=== PATIENT | male | born 1970 | race Caucasian/White ===

== ENCOUNTER 2021-02-21 22:07 | Emergency (ER) | payer SELFPAY ==
[2021-02-21 22:08] VITALS: BP 109/92; PULSE 117; RESP 18; TEMP 36.4; O2SAT 100; BMI 16.1
--- NOTE | 2021-02-21 22:22 | EDS_ITS ---
HPI <Dr. Aldo Henderson MD - Last Filed: 02/23/21 00:35> History of Present Illness Chief Complaint: General Illness Informant: patient Narrative Narrative: Patient presents with an episode of his stomach churning at home. He states it moved in and out. He also describes it as a convulsion. However this did cause no pain or discomfort. There is no nausea vomiting or diarrhea. Patient states he thinks it is because he has not eaten in a few days. He did eat over the weekend and had some apples. He lives at home with his mother. He normally does not go out or go anywhere. He does not know why he does not go out he just does not do it. His mother is in the hospital here. He states he has no way to get food at home. He denies fevers or chills. He denies anything making this better or worse. It is currently not occurring. He denies any past medical history. He does have a history of GI bleed related to nonsteroidals but states he is not taking any meds now and has not had black or bloody stools. No medications No allergies Denies prior surgeries Lives at home with mother, denies smoking. PFSH <Dr. Aldo Henderson MD - Last Filed: 02/23/21 00:35> [facility] Medical History GERD (gastroesophageal reflux disease) Home Medications NK 02/21/21 [History Last Taken Unknown] Allergy/AdvReac Type Severity Reaction Status Date / Time No Known Allergies Allergy Verified 02/22/21 12:24 Social History Smoking Status: Never smoker ROS <Dr. Aldo Henderson MD - Last Filed: 02/23/21 00:35> ROS ED Constitutional Constitutional ED: Denies chills or fever(s) Eyes Eyes: Denies blurry vision ENT ENT ED: Denies rhinorrhea or sore throat Cardiovascular Cardiovascular: Denies chest pain or palpitations Respiratory/Chest Respiratory/Chest: Denies cough, dyspnea or sputum Gastrointestinal Gastrointestinal: Reports other Details: See history of present illness. ; Denies abdominal pain, constipation, diarrhea, melena, nausea or vomiting Genitourinary Genitourinary ED: Denies dysuria or urinary frequency Musculoskeletal Musculoskeletal: Denies back pain or myalgias Integumentary Denies rash Neurologic Neurologic: Denies headache(s) Endocrine Endocrinology: Denies polydipsia or polyuria Allergic/Immunologic Allergic/Immunologic ED: Denies mouth swelling or urticaria EXAM <Dr. Aldo Henderson MD - Last Filed: 02/23/21 00:35> Physical Exam Const Vital Signs: 02/22/21 00:54 02/22/21 01:30 02/22/21 11:37 Pulse Rate 97 103 H Respiratory Rate 16 16 18 Blood Pressure 110/75 115/93 H Blood Pressure Mean 86 100 Pulse Ox 99 97 Oxygen Delivery Method Room Air Room Air Positive well nourished and well developed General Appearance ED: well developed and NAD HEENT Reports dry mucous membranes Negative for trauma or tenderness Mouth ED: Yes dry mucous membranes Mouth: dry mucous membranes Eyes Eyes Narrative: Patient's skin looks a little bit pale but his conjunctive a do not. General Eye ED: Negative for pale conjunctiva or scleral icterus Neck No no JVD Chest Wall inspection of chest normal Resp normal respiratory effort and clear to auscultation bilaterally Cardio regular rate, regular rhythm and no murmurs GI normal to inspection, nondistended, normoactive bowel sounds, non-tender, non- distended and no masses Auscultation: normoactive bowel sounds Palpation: soft Back/Spine no CVA tenderness General Back: CVA tenderness Neuro oriented x3 Neuro Narrative: Patient is oriented. He does seem to have somewhat poor insight. Sensorium / Orientation: alert Psych Psych Narrative: Mildly flat affect. But the patient is not agitated. He is not suicidal or homicidal. Skin no rashes or lesions noted <Dr. Ledy Garcia MD - Last Filed: 02/22/21 11:11> Physical Exam Const Vital Signs: 02/22/21 00:54 02/22/21 01:30 02/22/21 11:37 Pulse Rate 97 103 H Respiratory Rate 16 16 18 Blood Pressure 110/75 115/93 H Blood Pressure Mean 86 100 Pulse Ox 99 97 Oxygen Delivery Method Room Air Room Air MDM <Dr. Aldo Henderson MD - Last Filed: 02/23/21 00:35> MDM MDM Narrative Medical decision making narrative: Patient's blood work including CBC, electrolytes, liver function test and lipase are unremarkable. He ate full meal with sandwich and yogurt and to drink without any difficulty. He does feel better. This patient is awake alert appropriate. He is able to care for himself but does not know how to access money to get food. He has basically lived with his mother since high school and has not worked. He really does not go out. His mother is currently in the hospital. However, we have found that she plans to be discharged today to go home. Plan will be to hold the patient here. We will have social media marketing manager talk with him in the morning and make sure there is coordination that he can go home and get access to food. Lab Data Attestation: I reviewed the patient's lab results. Labs: Laboratory Results - last 24 hr 02/21/21 02/21/21 22:14 22:14 WBC 5.0 RBC 4.84 Hgb 15.9 Hct 45.7 MCV 94.4 H MCH 32.9 H MCHC 34.8 RDW Std Deviation 50.0 H RDW Coeff of Janet 14.3 Plt Count 160 MPV 9.2 Immature Gran % (Auto) 0.200 Neut % (Auto) 58.0 Lymph % (Auto) 19.2 [place] % (Auto) 22.2 H Eos % (Auto) 0.0 Baso % (Auto) 0.4 Absolute Neuts (auto) 2.9 Absolute Lymphs (auto) 0.96 Nucleated RBC % 0 Sodium 138 Potassium 3.7 Chloride 102 Carbon Dioxide 27.0 Anion Gap 9 BUN 13 Creatinine 1.27 Estim Creat Clear Calc 54.02 Est GFR (MDRD) Af Amer 77 Est GFR (MDRD) Non-Af 64 BUN/Creatinine Ratio 10.2 Glucose 106 Calcium 9.0 Total Bilirubin 0.80 AST 14 L ALT 17 Alkaline Phosphatase 52 Total Protein 7.3 Albumin 3.7 Globulin 3.6 Albumin/Globulin Ratio 1.0 Lipase 159 Radiography Diagnostic Testing: Clinical Impression(s) from Imaging Studies Acute Abdomen Series 02/21/21 22:50 IMPRESSION: No acute disease or bowel obstruction. Normal chest. Electronically Signed: Suleiman Mcdaniels MD at 23:10 EST Tel , Service support , <Dr. Ledy Garcia MD - Last Filed: 02/22/21 11:11> MDM Lab Data Labs: Laboratory Results - last 24 hr 02/21/21 02/21/21 22:14 22:14 WBC 5.0 RBC 4.84 Hgb 15.9 Hct 45.7 MCV 94.4 H MCH 32.9 H MCHC 34.8 RDW Std Deviation 50.0 H RDW Coeff of Janet 14.3 Plt Count 160 MPV 9.2 Immature Gran % (Auto) 0.200 Neut % (Auto) 58.0 Lymph % (Auto) 19.2 [place] % (Auto) 22.2 H Eos % (Auto) 0.0 Baso % (Auto) 0.4 Absolute Neuts (auto) 2.9 Absolute Lymphs (auto) 0.96 Nucleated RBC % 0 Sodium 138 Potassium 3.7 Chloride 102 Carbon Dioxide 27.0 Anion Gap 9 BUN 13 Creatinine 1.27 Estim Creat Clear Calc 54.02 Est GFR (MDRD) Af Amer 77 Est GFR (MDRD) Non-Af 64 BUN/Creatinine Ratio 10.2 Glucose 106 Calcium 9.0 Total Bilirubin 0.80 AST 14 L ALT 17 Alkaline Phosphatase 52 Total Protein 7.3 Albumin 3.7 Globulin 3.6 Albumin/Globulin Ratio 1.0 Lipase 159 Radiography Diagnostic Testing: Clinical Impression(s) from Imaging Studies Acute Abdomen Series 02/21/21 22:50 IMPRESSION: No acute disease or bowel obstruction. Normal chest. Electronically Signed: Suleiman Mcdaniels MD at 23:10 EST Tel , Service support , Treatment and Re-Evaluation Comments:: Patient signed out to me pending evaluation by social work. Social work did evaluate the patient. He does not meet any criteria for placement in either long term or a psychiatric unit. After speaking with mom she was made aware that the patient has actually been staying alone for several months. Patient's mother is currently in long term and then was transferred to the hospital 4 days ago. She is being discharged today back to a long term. They do have Me[employer] Wheels that gets delivered 5 meals a week for the patient's mother. Mom is going to call to see if those services can be increased to the patient will have more food. The hospital van is able to take the patient home. I am told he does not qualify for Adult Protective Services or other assistance. Discharge Plan Triage Chief Complaint: General Illness ED Provider: Aldo Henderson Dx/Rx/DC Orders Clinical Impression: Abdominal cramping, Hungry Instructions: Abdominal Pain Prescriptions: No Action NK RF: 0 Primary Care Provider: Care Physician,No Primary Referrals: Jessica Banegas MD [STAFF PHYSICIAN] - 1-2 Weeks Care Physician,No Primary [Primary Care Provider] - Disposition Disposition: Home, Self Care Discharge Date/Time: 02/22/21 11:38
[2021-02-21] MEDS: 0.9% Normal Saline 1,000 ML 1000 ML IV (22:32)
[2021-02-21 22:43] LABS: Absolute Lymphocyte Count 0.96 X10^3/uL (0.83-4.51); Absolute Neutrophil Count 2.9 X10^3/uL (2.0-7.7); Basophil# 0.02 X10^3/uL; Basophil% 0.4 % (0-1); Hematocrit 45.7 % (40-54); Hemoglobin 15.9 g/dL (13.0-16.5); Lymphocyte # 0.96 X10^3/ul (0.83-4.51); Lymphocyte % 19.2 % (19-41); Mean Corp Hgb Conc 34.8 g/dL (32-36); Mean Corpuscular Hgb 32.9 pg (27.0-32.0); Mean Corpuscular Volume 94.4 fL (80-94); Mean Platelet Vol. 9.2 fl (6.2-12.0); Monocyte# 1.11 X10^3/uL; Monocyte% 22.2 % (0-10); NRBC Flagged by Analyzer 0 % (0-5); Platelet Count 160 K/mm3 (150-450); RBC Distribution Width CV 14.3 % (11.6-14.6); Red Blood Count 4.84 M/mm3 (4.6-6.2)
--- NOTE | 2021-02-21 22:50 | RAD_ITS ---
EXAM: XR ABDOMEN, 2 VIEWS AND XR CHEST, 1 VIEW CLINICAL INDICATION: Pain TECHNIQUE: Frontal view of the chest, frontal view of the abdomen/pelvis and upright or decubitus view of the abdomen. This report was created using [employer] report [employer] technology. COMPARISON: None. FINDINGS: CHEST: LUNGS AND PLEURAL SPACES: Suggestion of diffuse emphysema. No pneumothorax. No effusion. HEART: Unremarkable. Cardiac silhouette not enlarged. MEDIASTINUM: Central airways and mediastinal contour are unremarkable. ABDOMEN: INTRAPERITONEAL SPACE: No free air. GASTROINTESTINAL TRACT: Normal bowel gas pattern. Non-obstructive. No bowel or stomach distention. ORGANS: Unremarkable as visualized. No organomegaly. No abnormal calcifications. TUBES, LINES AND DEVICES: None. BONES/JOINTS: Unremarkable bones. SOFT TISSUES: No acute findings. OTHER FINDINGS: No suspicious calcification.s. Normal chest. RAD/Acute Abdomen Inc Chest IMPRESSION: No acute disease or bowel obstruction. Normal chest. Electronically Signed: Suleiman Mcdaniels MD at 23:10 EST Tel , Service support ,
[2021-02-21 22:59] LABS: AST(SGOT) 14 U/L (15-37); Alanine Aminotransfer ALT/SGPT 17 U/L (16-61); Albumin, Serum 3.7 g/dL (3.2-5.0); Alkaline Phosphatase 52 U/L (45-117); Anion Gap 9 (5-15); BUN 13 mg/dL (7-18); BUN/Creat Ratio 10.2 RATIO (10-20); Chloride 102 mmol/L (98-107); Creatinine, Serum 1.27 mg/dL (0.70-1.30); EST Glomerular Filtration Rate 64 mL/min (>60); Est Glom Filt Rate - Afr Amer 77 mL/min (>60); Estimated Creatinine Clearance 54.02 ml/min; Globulin 3.6 g/dL (2.2-4.2); Glucose 106 mg/dL (74-106); Lipase 159 U/L (73-393); Potassium 3.7 mmol/L (3.5-5.1); Protein, Total 7.3 g/dL (6.4-8.2); Sodium Level 138 mmol/L (136-145)
[2021-02-22 00:54] VITALS: BP 110/75; PULSE 97; RESP 16; O2SAT 99
[2021-02-22 01:30] VITALS: BP 115/93; PULSE 103; RESP 16; O2SAT 97
--- NOTE | 2021-02-22 10:51 | CM.ED ---
Social Work Consult: Resources Informant: Dr. Garcia Met with patient in room. Introduced self and manager social services role. Patient agreeable to speak with this manager social services. Patient came to ER due to stomach pains. Patient reports to live at home with patient mother, Jana Pineda and that Jana does all grocery shopping for patient. Patient reports that Jana is in a hospital and has not been home for more then 2-3 days for since 2020. Patient reports to be able to get self dress and take care of myself, I just can't get food. Patient denies any transportation and that Jana was patient main transportation. Patient denies any mental health or disability history. Patient does not work and does not have an income. Patient reports that Jana provides for patient financially. Patient understands that there is no reason for patient to be admitted to the hospital. Patient reports how am I going to get food, patient reports to have no food in the house. Patient is agreeable to this manager social services contacting Jana. Patient reports to have not spoken to Jana for awhile. Patient does report to have a phone at home. Telephone call to Jana Bates updated that patient is in ER. Jana updated that patient is cleared for discharge to the community but there is concern about patient having food in the home. Jana confirms that there probably isn't anything there. Jana reports to not be returning to home from hospital as Jana is going to a skilled nursing. Jana then asked if this manager social services would call [employer] to see if meals can be increased for Jana so that patient could have these meals. This manager social services informed Jana that this manager social services is not able to call [employer] for this request as Jana in fact is not going to be home. Jana frustrated with this. This manager social services offered to assist Jana in obtaining the number for [employer] to be able to call on own. Jana voiced understanding but currently declining this social workers assistance. Jana does report that there are 5 meals delivered every Sunday to patient's home. Jana also denies patient having any mental health or developmental delays/concerns with learning. Jana reports he took care of him self last time he can do it again. Met with patient back in room. Patient updated on above conversation and confirms to be still receiving [employer] meals but they are not enough. This manager social services noting that patient has [employer], Patient is agreeable to this manager social services contacting [employer] to inquire about possible case management. This manager social services attempting to ask patient further question. Patient then not wanting to talk further and agreeable with plan to discharge to community with this manager social services to contact food pantries for possible delivery options and [employer]. Patient does not have transportation. Telephone call to [facility] Francia mcclain. Transportation able to be set up for 11:30am. Patient and team updated on above. PLAN: Discharge to community. Cristino Lind, L
--- NOTE | 2021-02-22 11:35 | CM.ED ---
[facility] no longer active with insurance. This social media assistant collaborating with registration, patient does in fact NOT have insurance per medicaid/medicare. Patient no longer in ER, will follow up with patient later after speaking with food pantries. Will continue to follow. Cristino MARTINEZ, FLO
[2021-02-22 11:37] VITALS: RESP 18
== END 2021-02-22 11:38 | disposition home or self-care (01) ==
PROVIDERS: Emergency Provider Emergency Medicine; Visit Provider Emergency Medicine
DX: R10.9 Unspecified abdominal pain (principal)
CPT/HCPCS: 74022; 80053; 83690; 85025; 96360; 96361; 99284

== ENCOUNTER 2021-02-22 12:19 | Observation (INO) | payer MEDICARE, SELFPAY ==
[2021-02-22 12:22] VITALS: BP 128/96; PULSE 123; RESP 18; TEMP 35.8; O2SAT 99; BMI 19.8
--- NOTE | 2021-02-22 13:31 | CT_ITS ---
STUDY: CT BRAIN WITHOUT CONTRAST REASON FOR EXAM: Male, 50 years old. Head injury due to a fall. RADIATION DOSAGE (If Supplied By Facility): CTDIvol = ( 47.06 ) mGy, DLP = ( 890.33 ) mGycm TECHNIQUE: Transaxial CT imaging of the brain was performed without administration of intravenous contrast material. Individualized dose optimization techniques were used for this CT. COMPARISON: No relevant priors. FINDINGS: There is a small scalp hematoma overlying the right frontal bone. Normal calvarium. Normal size ventricles and extra-axial spaces for the patient''s age. Normal white matter tracts of the cerebral hemispheres. Normal basal ganglia and thalami. Normal brainstem. Normal cerebellum. There is prominence of the cisterna magna. This is a normal variant. There is no intracranial hemorrhage. There are no findings of an acute ischemic infarction. Normal visualized paranasal sinuses. CT/Brain/Head without Contrast IMPRESSION: Small scalp hematoma overlying the right frontal bone. Electronically Signed: Cedric Castro MD at 14:17 EST , Service support ,
--- NOTE | 2021-02-22 14:00 | EDS_ITS ---
HPI History of Present Illness Chief Complaint: Fall Informant: patient Onset/Context/Timing Onset: Today Narrative Narrative: Patient returns to the ER after a fall at home. Patient was seen in the emergency room last night for abdominal pain. Work-up unremarkable. Patient reportedly has difficulty caring for himself. His mother is currently in the hospital being discharged back to a residential. Patient has been alone at home for the past couple of months. He told the overnight doctor that he had only eaten a couple apples over the weekend because he has no food and no way to get food. Patient was seen by social work this morning. He does not meet any criteria for admission to the hospital, residential, or psychiatric facility. Patient was discharged home with a hospital van taking him there. Patient states that as he got out of the bed and was walking into the home his legs gave out on him and he fell. He denies slipping on the snow or ice. [facility] Medical History GERD (gastroesophageal reflux disease) Home Medications NK 02/21/21 [History Last Taken Unknown] Allergy/AdvReac Type Severity Reaction Status Date / Time No Known Allergies Allergy Verified 02/22/21 12:24 Social History Smoking Status: Never smoker ROS ROS ED Constitutional Constitutional ED: Denies chills or fever(s) Eyes Eyes: Denies blurry vision ENT ENT ED: Denies rhinorrhea Cardiovascular Cardiovascular: Denies chest pain or palpitations Respiratory/Chest Respiratory/Chest: Denies dyspnea Gastrointestinal Gastrointestinal: Reports abdominal pain; Denies diarrhea or vomiting Integumentary Reports Abrasions Endocrine Endocrinology: Denies polydipsia or polyuria Allergic/Immunologic Allergic/Immunologic ED: Denies urticaria EXAM Physical Exam Const Vital Signs: 02/22/21 12:22 02/22/21 12:54 Temperature 96.4 F L Temperature Source Temporal Pulse Rate 123 H Respiratory Rate 18 Respiratory Effort Normal Non-Labored Blood Pressure 128/96 H Blood Pressure Mean 106 Pulse Ox 99 Oxygen Delivery Method Room Air Positive cachectic and unkempt General Appearance ED: unkempt and cachectic Nutritional Appearance: cachectic HEENT HEENT Narrative: Abrasions to the right forehead and along the nose. No active bleeding. Eyes PERRL and EOMs intact bilaterally Neck supple Chest Wall inspection of chest normal and palpation of chest normal Resp normal respiratory effort and clear to auscultation bilaterally Cardio regular rhythm Rate: tachycardic Extremity Extremity Narrative: Small abrasion to the extensor surface of the right elbow. No bony tenderness with full range of motion. Neuro oriented x3 Neuro Narrative: No focal neurologic deficits. Sensorium / Orientation: alert Psych Appearance: unkempt MDM MDM MDM Narrative Medical decision making narrative: Patient's lab work from overnight is reviewed and unremarkable. Head CT obtained. Radiography Diagnostic Testing: Clinical Impression(s) from Imaging Studies Brain CT 02/22/21 13:31 IMPRESSION: Small scalp hematoma overlying the right frontal bone. Electronically Signed: Cedric Castro MD at 14:17 EST , Service support , Treatment and Re-Evaluation Comments:: Patient's head CT shows a small scalp hematoma over the right frontal bone. I will discuss case with hospitalist as patient has failure to thrive at home. We attempted to send him home earlier today and he fell even prior to getting into his house. I do have concerns for his safety. Social work has been involved in his care. Discharge Plan Triage Chief Complaint: Fall ED Provider: Ledy Garcia Dx/Rx/DC Orders Clinical Impression: Adult failure to thrive, Fall Prescriptions: No Action NK RF: 0 Primary Care Provider: Care Physician,No Primary Referrals: Care Physician,No Primary [Primary Care Provider] - Disposition Disposition: Acute Care Hospital [facility] [place]
--- NOTE | 2021-02-22 14:55 | NURSING ---
MED SURG OBS [facility] [place] 2] FAILURE TO THRIVE, WEAKNESS, FALL
--- NOTE | 2021-02-22 14:56 | NURSING ---
DR DUNAWAY IN ER
--- NOTE | 2021-02-22 15:20 | CM.ED ---
Social Work Patient back to ED after falling on snow and hitting head when getting into house. This manager social responsibility updated by Dr. Garcia that patient is to be admitted to failure to thrive. Patient does not have insurance as stated from last visit. Please see prior visit social work notes for further details. This manager social responsibility did not get a chance to see patient prior to patient going to medical unit. Medical unit manager social responsibility provided a handoff by this manager social responsibility. Cristino MARTINEZ, ANNALISA-S
[2021-02-22 15:39] VITALS: BP 131/79; PULSE 99; RESP 20; TEMP 36.2; O2SAT 99
--- NOTE | 2021-02-22 15:41 | PCM.HP.STD ---
HPI - General General Date of Admission: 02/22/21 Chief Complaint: Fall, failure to thrive and generalized weakness. HPI Narrative ESTELLA GONZALEZ, is a 50 M male brought in by squad today for a fall. Patient stated he fell down because his legs gave out on standing up because of weakness. He was standing on the ice therefore fell down and hit his forehead with his bruising over forehead and nose. No loss of consciousness. He denies sleeping because of ice but more because of weakness. Patient was recently evaluated ER on 02/21 for evaluation of malnourishment and was dropped to house and patient was trying to get to the door. The patient is not a good historian and is very tangential and comes back to subject again. Patient has decreased muscle mass in extremities. He complains of mild wheezing but not able to bring up any phlegm. He denies any chronic cough, fever, chills, chest pain/pressure/tightness. Earlier he was seen by ED physician on 02/21 for stomach pain which he felt like convulsion but he does not understand the meaning of convulsant and was not true convulsing/injury. He did not have history of epilepsy. I think it is more muscle pain. Patient has not eaten in the last few days. Did not have nausea vomiting or diarrhea. His mother is the main caregiver and she was in the hospital and discharged yesterday to snf. Labs from 02/21 reviewed. Lipase is normal. Acute abdomen series no acute disease or bowel obstruction. [facility] Medical History GERD (gastroesophageal reflux disease) Home Medications NK 02/21/21 [History Last Taken Unknown] Allergy/AdvReac Type Severity Reaction Status Date / Time No Known Allergies Allergy Verified 02/22/21 12:24 Social History Smoking Status: Never smoker ROS ROS Narrative Constitutional: Reports fatigue and weakness, generalized weakness. Fall. HEENT: Reports systems reviewed and no addt'l complaints, except as documented Respiratory/Chest: Denies chest pain, shortness of breath at rest or with exertion Gastrointestinal: Denies coffee ground emesis, hematemesis or vomiting. No abdominal pain today, diarrhea or constipation. Genitourinary: Denies burning urination or new urinary tract symptoms Musculoskeletal: Generalized loss of muscle bulk and loss of subcutaneous fat. Neurologic: Denies seizure-like activity skin: Abrasion/bruise over forehead and nose. Endocrinology: Reports systems reviewed and no addt'l complaints, except as documented Hematologic/Lymphatic: Reports systems reviewed and no addt'l complaints, except as documented Rest 14 ROS are negative except as mentioned in HPI Vital Signs Vital Signs Vital Signs: 02/22/21 12:22 02/22/21 12:54 02/22/21 15:39 Temperature 96.4 F L 97.1 F L Temperature Source Temporal Oral Pulse Rate 123 H 99 Respiratory Rate 18 20 H Respiratory Effort Normal Non-Labored Blood Pressure 128/96 H 131/79 H Blood Pressure Mean 106 96 Pulse Ox 99 99 Oxygen Delivery Method Room Air Room Air Weight Weight: 150 lb Body Mass Index (BMI) 19.8 Physical Exam Narrative General: Alert, Oriented x3, Cooperative. Severe malnutrition HEENT: Atraumatic, PERRLA, EOMI, Normocephalic Oral: Oral mucosa dry. No Gingival or Mucosal Lesions/ Ulcerations Neck: Supple, No JVD, Negative Carotid Bruits Lungs: Air entry diminished in bilateral lung bases. No crepitation/rhonchi Cardiovascular: Regular rate, Regular Rhythm, Normal S1, Normal S2, No murmurs Abdomen: Bowel Sounds Present, Soft, Non Tender, Non-Distended : No renal angle tenderness. No suprapubic tenderness. Extremities: No edema, Capillary Refill Less than 3 Seconds Skin: Abrasion/bruise over forehead. No deep wound wound/ulcer. Musculoskeletal: Decreased muscle mass over extremities. Loss of intervertebral intercostal muscles. Loss of subcutaneous fat. No Tenderness to Palpation of Joints or Extremities Neurological: Cranial nerves II-XII grossly intact, DTR 2+/4 and Symmetrical. Muscle strength 4/5 at the major joints of upper and lower extremities. Psych/Mental Status: Normal Affect, Appropriate. Results Radiology Impression Brain CT 02/22/21 13:31 IMPRESSION: Small scalp hematoma overlying the right frontal bone. Electronically Signed: Cedric Castro MD at 14:17 EST , Service support , Assessment & Plan Assessment/Plan (1) Adult failure to thrive: (2) Fall: QUALIFIERS: Encounter type: initial encounter Qualified Code(s): W19.XXXA - Unspecified fall, initial encounter PLAN: 1. Fall most likely from generalized weakness: Patient is being admitted on MedSur floor. IV fluid Ringer lactate. PT and OT ordered. 2. Failure to thrive, severe subacute malnutrition in the last several months: Allergist/Immunologist Physician consult. Regular diet. Nutritional supplement. 3. Recent abdominal cramping probably from muscle abdominal CT did not show any acute bleeding or bowel obstruction. Normal chest. 4. History of large gastric ulcer, acute blood loss anemia requiring transfusion February 2017: Patient was admitted at that time. EGD showed large gastric ulcer without evidence of active bleeding colonoscopy showed descending colon a small polyp that was removed.Labs shows H&H 15.9/45.7 which may be over concentration from dehydration. BUN 13. Creatinine 1.27. PPI. Full code verified. Charges/Coding Visit Charges OBSV E&M: 30592 Initial observation care L3
[2021-02-22 15:54] VITALS: PULSE 108; BMI 15.1
[2021-02-22 16:00] VITALS: BP 106/84; PULSE 108; RESP 16; TEMP 37.7; O2SAT 96
[2021-02-22] MEDS: Lactated Ringers 1,000 ML 100 ML IV (16:40)
[2021-02-22] MEDS: Pantoprazole Sodium 40 MG Tablet PO (16:48)
[2021-02-22] MEDS: Acetaminophen 325 MG Tablet 650 MG PO (20:38)
[2021-02-22 20:50] VITALS: BP 109/68; PULSE 103; RESP 18; TEMP 37.3; O2SAT 96
[2021-02-22 23:50] VITALS: BP 101/76; PULSE 89; RESP 16; TEMP 36.9; O2SAT 96
--- NOTE | 2021-02-22 23:52 | PCS.PANDOC ---
PANDEMIC DOCUMENTATION INITIATED: Date: 02/23/2021 Time: 0000
[2021-02-23 03:55] VITALS: BP 97/67; PULSE 72; RESP 20; TEMP 36.8; O2SAT 95
[2021-02-23] MEDS: Acetaminophen 325 MG Tablet 650 MG PO ×2 (03:58→20:30)
[2021-02-23 06:17] LABS: Anion Gap 4 (5-15); BUN 19 mg/dL (7-18); BUN/Creat Ratio 24.2 RATIO (10-20); Calcium,Total 8.1 mg/dL (8.5-10.1); Chloride 105 mmol/L (98-107); Creatinine, Serum 0.79 mg/dL (0.70-1.30); EST Glomerular Filtration Rate 110 mL/min (>60); Est Glom Filt Rate - Afr Amer 134 mL/min (>60); Estimated Creatinine Clearance 81.68 ml/min; Glucose 90 mg/dL (74-106); Potassium 3.6 mmol/L (3.5-5.1); Sodium Level 139 mmol/L (136-145); Thyroid Stim Hormone (TSH) 0.48 uIU/mL (0.358-3.74)
[2021-02-23 08:41] VITALS: O2SAT 95
[2021-02-23 08:45] VITALS: BP 116/56; PULSE 60; RESP 18; TEMP 36.4; O2SAT 94
[2021-02-23] MEDS: Pantoprazole Sodium 40 MG Tablet PO (08:45)
[2021-02-23] MEDS: Menthol/Lanolin/Calamine/Znox 113 GM Tube 1 APPLIC TOPICAL ×2 (09:23→20:31)
--- NOTE | 2021-02-23 11:55 | CASEMGMT ---
SYDNEY LEACH Assessment: Face to Face with pt for initial transition planning/care coordination assessment. SYDNEY LEACH introduced self and role at [facility], pt voices understanding and consents to assessment. Pt is A/O x4 and answers all questions appropriately at this time. Pt lying in bed on RA in no distress. Pt very angry when discussing [facility] with SYDNEY LEACH and was using profanity. Care providers, pharmacy, and demographics verified/updated. Phone number listed is patient's mother's. Pt does not have a phone. Admitting Dx: generalized weakness, COVID PCP: Pt denies having PCP. Will provide pt with local healthcare directory pamphlet. Specialists: Pt denies. Preferred Pharmacy: [facility] [place] Insurance: Self Pay- per SW previous note pt does not have insurance. Prescription Benefit: no LW/HPOA: Pt denies having a LW/DPOA and denies need for info regarding AD. LNOK: Jana Pineda, mother Living Arrangements: Pt lives with mother in a ground level apt with no steps to enter. Pt mother is currently hospitalized. Pt reports he was I in ADL's prior to becoming sick. Transportation: Pt states he has no transportation. He does not have a drivers license or a car and stays at home. DME/HHC/SNF: Pt states he has access to a walker and a cane of his mother's but does not use AD. Denies previous HHC or SNF stays. Pt came in for weakness. Discussed options of therapy for patient. Pt denies options d/t not having insurance. Pt states he and his mother receive 5 meals a week from [facility], but his mother is in the hospital. Asked if pt normally receives 10 when she is at home, he states no just the 5. He states this is not enough. Made him aware of [employer] in [place] who can deliver groceries for COVID patients. Spoke with STERLING Her regarding assessment. Pt states no further concerns/needs. CM to follow. Advised pt to ask CM if any further question/concerns/needs arise, voices understanding. Pt first tested positive for COVID at [facility]. Pt states he does not have family or friends who can provide groceries and supplies while in quarantine. See above. Pt Goal: Home Plan: Home
[2021-02-23 13:11] VITALS: BP 131/79; PULSE 100; RESP 18; TEMP 36.5; O2SAT 99
--- NOTE | 2021-02-23 13:45 | PCM.PN.HOSP ---
Subjective Subjective States that he does not go out. Does not eat much because he does not have food at home. Has lost weight but cannot quantify how much. Objective Data Objective Data Vital Signs: Vital Signs Temp Pulse Resp BP Pulse Ox 36.5 C L 100 18 131/79 H 99 02/23/21 13:11 02/23/21 13:11 02/23/21 13:11 02/23/21 13:11 02/23/21 13:11 Oxygen Delivery Method Room Air Weight: 52.2 kg Body Mass Index (BMI) 15.1 Intake & Output: Intake and Output for Last 24 Hours 02/21/21 02/22/21 02/23/21 23:59 23:59 23:59 Intake Total 1480 / 1480 Balance 1480 / 1480 Medical Nutrition Assessment Dietitian: Malnutrition Criteria Met Start: 02/22/21 17:19 Freq: Status: Active Protocol: Document 02/22/21 17:19 RMA (Rec: 02/22/21 17:20 RMA [id number]) Nutrition Malnutrition Evidence of Malnutrition Exists Yes Malnutrition (severe): Acute Illness/Injury,Social/ Behavioral/Environmental Evidenced By Suboptimal Energy Intake ( Severe),Weight Loss (Severe), Physical Changes (Severe) Clinical Problem Starvation Related Malnutrition Etiology Severe pro-calorie starvation related malnutrition in the context of no access to food/ nutrition related to inadequate energy consumption/ inadequate oral intake Signs/Symptoms as evidenced by +NFPA with severe muscle and fat wasting in the face, clavicle, orbital , arms and legs, calculated wt loss ~26% x past 12 months and PO meeting less than 25-50 % estimated nutrition needs x past year. Status Active Problem Recommendation Dietitian Recommendations/Changes Continue regular diet as ordered. Monitor closely for signs or symptoms of refeeding syndrome . Will add 240 ml ensure enlive TID w/ meals for extra 1050 kcal and 60 gm pro per day. Additional ONS as needed once PO tolerance established w/ meals. Lab / Micro Data Result Diagrams: 02/23/21 05:11 02/23/21 05:11 Labs: Laboratory Results - last 24 hr 02/23/21 05:11: Sodium 139, Potassium 3.6, Chloride 105, Carbon Dioxide 30.0, Anion Gap 4 L, BUN 19 H, Creatinine 0.79, Estim Creat Clear Calc 81.68, Est GFR (MDRD) Af Amer 134, Est GFR (MDRD) Non-Af 110, BUN/Creatinine Ratio 24.2 H, Glucose 90, Calcium 8.1 L, TSH 0.48 Micro: Microbiology 02/22/21 20:40 Nasal Secretion SARS-CoV-2 Antigen (Rapid) - Final SARS-CoV-2 (COVID 19) Radiography Diagnostic Testing: Radiology Impression Brain CT 02/22/21 13:31 IMPRESSION: Small scalp hematoma overlying the right frontal bone. Electronically Signed: Cedric Castro MD at 14:17 EST , Service support , Physical Exam Const alert Constitutional Narrative: Sitting up in bed. Profoundly cachectic. HEENT HEENT Narrative: Bruising on nose as well as forehead. Temporal wasting. Resp normal respiratory effort, no retractions, no use of accessory muscles and clear to auscultation bilaterally Cardio regular rate, regular rhythm and S1 normal heart sound GI normal to inspection, nondistended, normoactive bowel sounds, soft to palpation, non-tender and non-distended Assessment & Plan Assessment/Plan (1) Adult failure to thrive: (2) Fall: QUALIFIERS: Encounter type: initial encounter Qualified Code(s): W19.XXXA - Unspecified fall, initial encounter PLAN: 1. Failure to thrive PT OT evaluate and treat Patient may require SNF upon discharge. Patient likely too young for adult protective services 2. Severe protein calorie malnutrition Patient states that he does not have food security at home since his mother is in the hospital. Concerning being that he is only 50 years old Nutrition consult Supplements 3. COVID-19 Patient is a has no idea how he contracted it as he does not go out but his mother is admitted with COVID-19. And he lives with his mother. He is unvaccinated Onset of symptoms is unclear as patient does not clear himself. Both take the date of onset being when he was tested positive which was the and he will need to quarantine through the . No indication for treatment at this time as he has not have any respiratory symptoms but perhaps some upper respiratory symptoms. 4. DVT prophylaxis with enoxaparin Charges/Coding Visit Charges OBSV E&M: 88488 Subsequent observation care L2
--- NOTE | 2021-02-23 14:44 | CASEMGMT ---
Social Work STERLING informed that pt does not have access to food. Pt now has COVID. SW called [employer], they do not deliver. SW called [facility] [employer]. They have a doordash program, pt can call back tomorrow to register, as the person who registers people is not in today. SW also called [employer], message left. SW met w/pt to clarify needs and offer assist with resources. Pt agreeable to complete Medicaid application, pt did not want to put anybody down as an authorized reimbursement representative. SW assisted pt in completing the application, pt signed it. SW also assisted pt in completing the hospital assist program application, pt signed it. Pt states has no income, states does not know how much the rent is or what the bills are, what they cost. Pt states he doesn't know how the bills get paid. Pt lives w/his mother but she has been in and out of nursing homes over the last few months. Pt states has no income, no social security, no disability. Pt states has never had any type of services for a disability. STERLIGN inquired about pt's ability to read. Pt states in regard to what is more difficult, reading or seeing, pt states everything is difficult. He states did not get help in school with anything, and did graduate high school. He did inform SW he can read but cannot see. STERLING gave pt resources, including information on [employer], [employer], [employer], food bianchi, transportation. STERLING wrote the numbers for the [facility] [employer] and [employer] bigger for pt, and encouraged pt to call both when he gets home. STERLING explained that the [employer] bank does have a home delivery program, but he needs to call to register. Pt does have [employer] being delivered, it was originally set up for his mother. Pt declined need for any additional resources. STERLING sent the financial assist form to our financial department, and faxed in pt's Medicaid application. SW is available for further assist if needed. FLO Saba
--- NOTE | 2021-02-23 15:32 | CASEMGMT ---
Social Work SW assisted pt in completing POA for Healthcare. Pt listed her niece, Cristina York, as POA for healthcare, and put her friend, Devi, as the alternate. SW gave pt the original and a copy, and copy placed on chart. FLO Saba
[2021-02-23 20:25] VITALS: BP 105/62; PULSE 114; RESP 18; TEMP 38.1; O2SAT 96
[2021-02-23] MEDS: Ondansetron 4 MG/2 ML Vial IV (20:30)
[2021-02-24 05:03] VITALS: BP 117/64; PULSE 106; RESP 18; TEMP 37.6; O2SAT 96
[2021-02-24 06:56] VITALS: O2SAT 95
[2021-02-24 08:20] VITALS: BP 115/66; PULSE 110; RESP 18; TEMP 37.9; O2SAT 92
[2021-02-24] MEDS: Enoxaparin 40 MG/0.4 ML Syringe SC (08:27)
[2021-02-24] MEDS: Pantoprazole Sodium 40 MG Tablet PO (08:27)
[2021-02-24] MEDS: Acetaminophen 325 MG Tablet 650 MG PO (08:27)
[2021-02-24] MEDS: Menthol/Lanolin/Calamine/Znox 113 GM Tube 1 APPLIC TOPICAL (08:28)
[2021-02-24 11:25] VITALS: BP 101/63; PULSE 99; RESP 16; TEMP 36.6; O2SAT 91
--- NOTE | 2021-02-24 12:55 | PCM.DC ---
Discharge Instructions Diet Discharge Diet: No restrictions (supplements with meals.) Activity Discharge Activity: Return to Normal Activity Dressing / Incision Call your doctor if you observe: - (recurrent falls) Follow Up Care Test Results: Test results from this visit will be discussed in further detail at your follow-up appointment, if applicable. Discharge Plan Admission Admit Date/Time: 02/22/21 14:48 Primary Reason for Your Visit: debility. malnutrition. Attending Provider: Bill Pichardo Primary Care Provider: Care Physician,Iwona Primary Discharge Orders/Prescriptions Prescriptions: No Action NK RF: 0 Referrals / Follow Up: Care Physician,No Primary [Primary Care Provider] - Disposition Disposition (needs filled in before D/C Order can be placed): Home Health Service
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
--- NOTE | 2021-02-24 13:35 | CASEMGMT ---
Addendum entered by Danielle Farmer 02/24/21 14:43: TC to [facility], left message to see if pt would be appropriate for their program. Addendum entered by Danielle Farmer 02/24/21 14:37: TC to 's office, no appt available until April. Appt on 03/16/21 with her partner at 2p, pt needs to arrive at 1:30pm. Market Development Manager states pt needs to bring photo ID and insurance card. Made her aware that pt has pending [place] at this time. She states pt will need to pay a $50 copay at time of visit and will be reimbursed if insurance comes into effect. She is also aware that pt may not be available by phone but this RN CM will set up transportation. TC to Transportation, hospital van will pick pt up at 1p this date. Information on dc plan. Original Note: RN HAYLEE in to pt room with STERLING Taina Lund. Pt provided with a local healthcare directory. Discussed with pt the importance of medical follow up after hospitalization, and this RN CM would like to set him up with a PCP. Pt agreeable to this and took the pamphlet but stated he was unable to read it due to his poor vision. Pt accepting of for PCP. Pt confirms he does not have transportation and is agreeable to the hospital van providing it. Pt reports he does not have a phone. Asked how he called 911 to come to the hospital. Pt states it took him quite some time to figure out how to call 911. He does not have a phone of himself. Pt's mother's phone is at his home. Made him aware his mother's phone will be provided to the MD office, he states his mother would give him the message. Pt states he does not want to comment when asked about his relationship with his mother. He states he does feel safe at home. Pt states when his mother was in the detention she must've stopped ordering food. Asked pt what he does when he is hungry and does not have food, he states he drinks water and sits. Asked if he would get groceries at a grocery store. Pt states he has not been in a grocery store in a few years. He states this is not due to fear of the store or people. Pt reports he used to work. When asked about pt apartment, he states it is junk. Asked him to elaborate. He states there is dust from remodeling. The home is in good repair, no clutter, one hole in wall from grab bar breaking off, no rodent issues. Pt has heat and running hot water. Pt reports the only family he has is in [facility] and they are not in good health. He does not have anyone locally to assist him. Pt reports his mother has poor health, when asked what would happen to him if her health continues to decline, he states I dont know. Made pt aware that the RN HAYLEE and STERLING are trying to assist him to be independent. SW discussed further resources, see note.
--- NOTE | 2021-02-24 14:10 | CASEMGMT ---
Social Work Note STERLING and SYDNEY Farmer in to speak with pt to continue discussion of discharge plans. SYDNEY Farmer spent much time with pt trying to gather additional background information on pt - see note. STERLING then spoke with pt about Mental Health. Pt denied any Mental Health History. SW spoke with pt about community resources and how this worker can arrange appointments with community resources to get pt home. STERLING spoke with pt regarding arranging a CM through [facility], Transportation services, [facility]. SW asked pt if this worker could make him an appointment at [facility] so he could get set up with Case Management services and pt said just leave the resources. SW explained importance of getting arranged with a CM so they can help pt get his own account for Money, can assist pt with transportation, can assist pt with applying for disability, and can assist pt with becoming more independent. As noted, pt just told this worker to leave the resources. Resources provided. SW aware that pt is malnourished and is stating he has no food in the home. CPS report cannot be made as pt is over 18 and APS report cannot be made as pt is under 60. Pt was educated on programs to assist him such as [facility] Door Dash, [facility], Transportation services, Community action, [facility] Board of and Mental Health resources. Pt was also assisted in completing Medicaid application and this was faxed to [employer]. SW offered to make an appointment with pt at [facility] for Case Management services and pt denied. Pt to return home with his mother today. Taina Lund MECHANIC ASSISTANT, LINSEED OIL TEMPERER
[2021-02-24 14:51] VITALS: BP 109/71; PULSE 108; RESP 16; TEMP 37.2; O2SAT 94
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
--- NOTE | 2021-02-25 09:56 | CASEMGMT ---
Social Work Note SW placed a call to [facility] [employer] and left message for Taina, [employer] Pl[employer] Assembler And Gluer, to register pt for Door Dash program. STERLING will await return call from Taina. Taina Lund BREAST WORKER, DRESS CAP MAKER
--- NOTE | 2021-02-25 10:22 | CASEMGMT ---
Social Work Note SW received message from Taina at [facility] stating their Door Dash program doesn't come to [place]. Taina Lund APPLICATIONS SPECIALIST, BOARD ATTENDANT
--- NOTE | 2021-03-14 16:17 | CASEMGMT ---
TC to listed phone for pt to remind of appt on Sunday and time of appt. No answer and no vm set up to leave a message.
--- NOTE | 2021-03-16 09:09 | CASEMGMT ---
TC to pt listed phone number for appt reminder today. Phone number went straight to a message that stated no vm is set up.
--- NOTE | 2021-03-17 09:22 | CASEMGMT ---
Noted pt was a No Show to his appt yesterday. TC to [facility] transportation, spoke with Carmen who states they arrived to pt apt and he did not come out. They attempted to call pt without success.
== END 2021-02-24 18:43 | disposition home or self-care (01) ==
LOC: ED 14:43 → MS2 15:28 → MS3 23:29
PROVIDERS: Admitting Provider Internal Medicine; Emergency Provider Emergency Medicine
DX: U07.1 COVID-19 (principal); E43 Unspecified severe protein-calorie malnutrition; W00.9XXA Unspecified fall due to ice and snow, initial encounter; R62.7 Adult failure to thrive; S00.03XA Contusion of scalp, initial encounter; Z68.1 Body mass index [BMI] 19.9 or less, adult; K21.9 Gastro-esophageal reflux disease without esophagitis; Y93.01 Activity, walking, marching and hiking; Y99.9 Unspecified external cause status; S50.311A Abrasion of right elbow, initial encounter; Y92.009 Unspecified place in unspecified non-institutional (private) residence as the place of occurrence of the external cause
CPT/HCPCS: 36415; 70450; 74022; 80048; 80053; 83690; 84443; 85025; 87426; 96360; 96361; 96372; 96374; 97162; 97166; 97802; 99218; 99284; 99285; J7120; G0378; J2405

== ENCOUNTER 2021-06-14 15:24 | Emergency (ER) | payer SELFPAY ==
[2021-06-14 15:25] VITALS: BP 138/101; PULSE 92; RESP 18; TEMP 36.8; O2SAT 99; BMI 18.7
--- NOTE | 2021-06-14 15:50 | ED.RN ---
EDVIN FROM [facility] CALLED TO REITERATE HER CONCERN AND THE PTS LACK OF ABILITY TO CARE FROM HIMSELF. PT HAS PLENTY OF FOOD AND RESOURCES AVAILABLE BUT IS UNABLE TO UNDERSTAND HOW TO USE THEM. PT HAS PLENTY OF FOOD BUT IS NOT ABLE TO COOK IT OR EVEN OPEN SOME OF THE CONTAINERS. PT HAS BEEN WEARING THE SAME CLOTHES FOR OVER A WEEK, FOUND TO BE DIGGING IN DUMPSTERS/TRASH CANS FOR FOOD. PER [facility] BOARD OF MRDD, APS AND OTHER COMMUNITY RESOURCES ARE UNABLE TO ASSIST THE PT. SHE STATED [facility] WAS MADE AWARE OF THE PT BUT ALSO EXPLAINED TO HER THAT THIS IS NOT A MENTAL HEALTH SITUATION. HE WILL NOT MEET CRITERIA FOR A PSYCHIATRIC FACILITY. EXPLAINED PT WILL BE LOOKED AT IN THE ER FROM THE [facility] AND HOPE TO FIND A REASON TO ADMIT PT TO BE FURTHER EVALUATED BY SOCIAL WORK.
--- NOTE | 2021-06-14 16:05 | ED.RN ---
Dwayne FROM [facility] CALLED AGAIN AND STATES THE PT WOULD PROBABLY BE ABLE TO STAY IN THE HOME WITH A GUARDIAN IN PLACE AND DIRECTION HOME ASSISTANCE. AGAIN EXPLAINED THAT THE GOAL FROM THE ER IS TO GET THE PT ADMITTED SO THAT SOCIAL WORK CAN SEE PT TOMORROW. DWAYNE WANTED THE NUMBER FOR HENRI FROM BOARD OF [facility]DD TO BE GIVEN TO SOCIAL WORK FOR ASSISTANCE IF THEY WOULD NEED IT. [phone] EXT [phone]
[2021-06-14 16:07] LABS: Absolute Lymphocyte Count 1.58 X10^3/uL (0.83-4.51); Absolute Neutrophil Count 4.2 X10^3/uL (2.0-7.7); Basophil# 0.04 X10^3/uL; Basophil% 0.6 % (0-1); Eosinophil# 0.19 X10^3/uL; Eosinophils% 2.8 % (0-5); Hematocrit 44.5 % (40-54); Hemoglobin 14.6 g/dL (13.0-16.5); Lymphocyte # 1.58 X10^3/ul (0.83-4.51); Lymphocyte % 23.1 % (19-41); Mean Corp Hgb Conc 32.8 g/dL (32-36); Mean Corpuscular Hgb 35.3 pg (27.0-32.0); Mean Corpuscular Volume 107.5 fL (80-94); Mean Platelet Vol. 8.6 fl (6.2-12.0); Monocyte# 0.85 X10^3/uL; Monocyte% 12.4 % (0-10); NRBC Flagged by Analyzer 0 % (0-5); Neutrophil # 4.16 X10^3/uL (2.7-7.7); Neutrophil % 60.8 % (47-70); Platelet Count 211 K/mm3 (150-450); RBC Distribution Width CV 12.9 % (11.6-14.6); RBC Distribution Width SD 52.2 fl (35.1-43.9); Red Blood Count 4.14 M/mm3 (4.6-6.2); White Blood Count 6.8 K/mm3 (4.4-11.0)
[2021-06-14 16:24] LABS: Anion Gap 5 (5-15); BUN 15 mg/dL (7-18); BUN/Creat Ratio 20.2 RATIO (10-20); Calcium,Total 9.1 mg/dL (8.5-10.1); Chloride 103 mmol/L (98-107); Creatinine, Serum 0.74 mg/dL (0.70-1.30); EST Glomerular Filtration Rate 118 mL/min (>60); Est Glom Filt Rate - Afr Amer 142 mL/min (>60); Estimated Creatinine Clearance 107.59 ml/min; Glucose 97 mg/dL (74-106); Potassium 3.9 mmol/L (3.5-5.1); Sodium Level 139 mmol/L (136-145)
--- NOTE | 2021-06-14 16:29 | ED.RN ---
PER SOCIAL WORK PT HAS NEVER HAD A DX OF MENTAL HEALTH OR [facility] SERVICES. PT NEEDS A MENTAL HEALTH EVALUATION TO RULE MENTAL HEALTH ISSUES OUT. DR DOWNEY IS AWARE AND WE WILL BE CALLING CRISIS TO EVALUATE PT.
--- NOTE | 2021-06-14 16:43 | EX.ED.VIS.PS ---
HPI <Dr. Aldo Henderson MD - Last Filed: 06/18/21 00:38> HPI - Psych History of Present Illness Chief Complaint: Mental Health Informant: patient Narrative Narrative: Patient was evidently pink slipped by the police. This patient lives at home. Many neighbors did not even know he existed until recently. He never leaves the house. His mother has been in and out of the hospital recently. She has been back in for a couple weeks and actually coded and was intubated just a few days ago. It is expected she may not be able to ever leave the hospital. She may not live. I do not know who called or contacted about this person. But evidently there are serious concerns of his ability to care for himself. He admits that his mother arranges all the food that comes in. She gets Meals on Wheels but it sounds like that might be stopping if she is not at home. She does all the driving when she is home. He does not however know how to drive. He does not know how to get food. He can microwave simple meals but that is it. He does not know how to use the phone. He does not know how to clean close. He has no physical complaint. Many staff members have done calling and social work is called about this patient. He evidently has some history of dysfunction but has never been referred for evaluation. He has no records with [facility] board or psychiatry. It sounds like he has been living at home for an extensive period of years with really no contact of significance with the outside world. PFSH <Dr. Aldo Henderson MD - Last Filed: 06/18/21 00:38> [facility] Medical History Gastric ulcer due to nonsteroidal anti-inflammatory drug (NSAID) GERD (gastroesophageal reflux disease) Peptic ulcer disease Home Medications NK 02/21/21 [History Last Taken Unknown] Allergy/AdvReac Type Severity Reaction Status Date / Time No Known Allergies Allergy Verified 06/14/21 15:27 Social History Smoking Status: Never smoker ROS <Dr. Aldo Henderson MD - Last Filed: 06/18/21 00:38> ROS ED Constitutional Constitutional ED: Denies chills or fever(s) Eyes Eyes: Denies change in vision ENT ENT ED: Denies sore throat Cardiovascular Cardiovascular: Denies chest pain or palpitations Respiratory/Chest Respiratory/Chest: Denies cough or dyspnea Gastrointestinal Gastrointestinal: Denies abdominal pain, diarrhea, nausea or vomiting Genitourinary Genitourinary ED: Denies dysuria Musculoskeletal Musculoskeletal: Denies myalgias Integumentary Denies rash Neurologic Neurologic: Denies headache(s) Psychiatric Psychiatric: Reports other Details: No reported or known history of psychiatric illness peer ; Denies anxiety, depression, suicidal ideation or suicidal thoughts Endocrine Endocrinology: Denies polydipsia or polyuria Hematologic/Lymphatic Hematologic/Lymphatic: Denies easy bleeding or easy bruising Allergic/Immunologic Allergic/Immunologic ED: Denies urticaria EXAM <Dr. Aldo Henderson MD - Last Filed: 06/18/21 00:38> Physical Exam Const Vital Signs: 06/14/21 15:25 06/14/21 19:00 06/14/21 20:00 Temperature 98.3 F Temperature Source Temporal Pulse Rate 92 Respiratory Rate 18 18 18 Blood Pressure 138/101 H Blood Pressure Mean 113 Pulse Ox 99 Oxygen Delivery Method Room Air Room Air Room Air 06/14/21 20:57 06/14/21 22:00 06/14/21 23:00 Temperature 98.5 F Temperature Source Temporal Pulse Rate 102 H Respiratory Rate 18 18 17 Blood Pressure 139/91 H Blood Pressure Mean 107 Pulse Ox 100 Oxygen Delivery Method Room Air Room Air Room Air 06/15/21 00:00 06/15/21 01:00 06/15/21 01:22 Temperature Temperature Source Pulse Rate 85 Respiratory Rate 18 18 18 Blood Pressure 123/100 H Blood Pressure Mean 107 Pulse Ox 100 Oxygen Delivery Method Room Air Room Air Room Air 06/15/21 03:00 06/15/21 04:00 06/15/21 05:00 Temperature Temperature Source Pulse Rate Respiratory Rate 16 18 14 Blood Pressure Blood Pressure Mean Pulse Ox Oxygen Delivery Method 06/15/21 06:00 06/15/21 10:25 06/15/21 11:00 Temperature Temperature Source Pulse Rate 81 Respiratory Rate 18 17 17 Blood Pressure 121/95 H Blood Pressure Mean 103 Pulse Ox 97 Oxygen Delivery Method Room Air Room Air Room Air 06/15/21 11:12 06/15/21 12:00 06/15/21 13:00 Temperature Temperature Source Pulse Rate 99 Respiratory Rate 17 16 17 Blood Pressure 128/97 H Blood Pressure Mean 107 Pulse Ox 100 Oxygen Delivery Method Room Air Room Air Room Air This patient is awake alert. He is interactive. He is mildly unkempt. He is quite thin but I would not list him is truly cachectic. Positive well developed and unkempt General Appearance ED: unkempt and well developed HEENT normocephalic Eyes EOMs intact bilaterally Neck no JVD Resp normal respiratory effort Cardio Rate: regular rate Rhythm: regular rhythm GI non-tender Palpation: soft Back/Spine no CVA tenderness Neuro Neuro Narrative: Patient is alert and oriented. He knows what is going on with his mom. But he admits he does not really know how to obtain or cook food. He can figure out how to microwave box meals. 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 He has no way to get around. He does not drive. He admits that his mother does quite a lot of the management at home. Sensorium / Orientation: alert Psych mental status grossly normal Psych Narrative: Patient does not have flight of ideas. He is cooperative. No pressured speech. He does not appear to be paranoid. Appearance: unkempt Skin Rashes: no rashes <Dr. Bill Castellano, DO - Last Filed: 06/15/21 06:47> Physical Exam Const Vital Signs: 06/14/21 15:25 06/14/21 19:00 06/14/21 20:00 Temperature 98.3 F Temperature Source Temporal Pulse Rate 92 Respiratory Rate 18 18 18 Blood Pressure 138/101 H Blood Pressure Mean 113 Pulse Ox 99 Oxygen Delivery Method Room Air Room Air Room Air 06/14/21 20:57 06/14/21 22:00 06/14/21 23:00 Temperature 98.5 F Temperature Source Temporal Pulse Rate 102 H Respiratory Rate 18 18 17 Blood Pressure 139/91 H Blood Pressure Mean 107 Pulse Ox 100 Oxygen Delivery Method Room Air Room Air Room Air 06/15/21 00:00 06/15/21 01:00 06/15/21 01:22 Temperature Temperature Source Pulse Rate 85 Respiratory Rate 18 18 18 Blood Pressure 123/100 H Blood Pressure Mean 107 Pulse Ox 100 Oxygen Delivery Method Room Air Room Air Room Air 06/15/21 03:00 06/15/21 04:00 06/15/21 05:00 Temperature Temperature Source Pulse Rate Respiratory Rate 16 18 14 Blood Pressure Blood Pressure Mean Pulse Ox Oxygen Delivery Method 06/15/21 06:00 06/15/21 10:25 06/15/21 11:00 Temperature Temperature Source Pulse Rate 81 Respiratory Rate 18 17 17 Blood Pressure 121/95 H Blood Pressure Mean 103 Pulse Ox 97 Oxygen Delivery Method Room Air Room Air Room Air 06/15/21 11:12 06/15/21 12:00 06/15/21 13:00 Temperature Temperature Source Pulse Rate 99 Respiratory Rate 17 16 17 Blood Pressure 128/97 H Blood Pressure Mean 107 Pulse Ox 100 Oxygen Delivery Method Room Air Room Air Room Air <Dr. Tylor Braden MD - Last Filed: 06/15/21 15:04> Physical Exam Const Vital Signs: 06/14/21 15:25 06/14/21 19:00 06/14/21 20:00 Temperature 98.3 F Temperature Source Temporal Pulse Rate 92 Respiratory Rate 18 18 18 Blood Pressure 138/101 H Blood Pressure Mean 113 Pulse Ox 99 Oxygen Delivery Method Room Air Room Air Room Air 06/14/21 20:57 06/14/21 22:00 06/14/21 23:00 Temperature 98.5 F Temperature Source Temporal Pulse Rate 102 H Respiratory Rate 18 18 17 Blood Pressure 139/91 H Blood Pressure Mean 107 Pulse Ox 100 Oxygen Delivery Method Room Air Room Air Room Air 06/15/21 00:00 06/15/21 01:00 06/15/21 01:22 Temperature Temperature Source Pulse Rate 85 Respiratory Rate 18 18 18 Blood Pressure 123/100 H Blood Pressure Mean 107 Pulse Ox 100 Oxygen Delivery Method Room Air Room Air Room Air 06/15/21 03:00 06/15/21 04:00 06/15/21 05:00 Temperature Temperature Source Pulse Rate Respiratory Rate 16 18 14 Blood Pressure Blood Pressure Mean Pulse Ox Oxygen Delivery Method 06/15/21 06:00 06/15/21 10:25 06/15/21 11:00 Temperature Temperature Source Pulse Rate 81 Respiratory Rate 18 17 17 Blood Pressure 121/95 H Blood Pressure Mean 103 Pulse Ox 97 Oxygen Delivery Method Room Air Room Air Room Air 06/15/21 11:12 06/15/21 12:00 06/15/21 13:00 Temperature Temperature Source Pulse Rate 99 Respiratory Rate 17 16 17 Blood Pressure 128/97 H Blood Pressure Mean 107 Pulse Ox 100 Oxygen Delivery Method Room Air Room Air Room Air MDM <Dr. Aldo Henderson MD - Last Filed: 06/18/21 00:38> [facility] Narrative Medical decision making narrative: Patient's CBC shows no acute process. Electrolytes are overall unremarkable. Tox and alcohol are pending at this time. Social work evidently saw him. They states that the patient will need psychiatric evaluation. He has been pink slipped by the police. This is a somewhat complex patient. He has some capability of independence but very mild. There are many required life functions that he is not able to do. His mother has been taking care of him for unknown numbers of years. Last time when we saw him he was deemed okay to go home. But he fell at home and then got admitted while his mother was in the hospital. I think this patient would likely do best in a long-term care or retirement environment. However we need to try to make these arrangements. It would have been appropriate to have extensive psychiatric or functional assessments done prior to this. However these have never been done in the past that we can tell. We will have psychiatric assessment done. He is medically cleared. We will then see if he needs to go to psychiatric facility or if we need to try to make arrangements for court evaluation for competency and function. Lab Data Attestation: I reviewed the patient's lab results. Labs: Laboratory Results - last 24 hr 06/14/21 06/14/21 06/14/21 15:55 16:00 16:00 WBC 6.8 RBC 4.14 L Hgb 14.6 Hct 44.5 MCV 107.5 H MCH 35.3 H MCHC 32.8 RDW Std Deviation 52.2 H RDW Coeff of Janet 12.9 Plt Count 211 MPV 8.6 Immature Gran % (Auto) 0.300 Neut % (Auto) 60.8 Lymph % (Auto) 23.1 [place] % (Auto) 12.4 H Eos % (Auto) 2.8 Baso % (Auto) 0.6 Absolute Neuts (auto) 4.2 Absolute Lymphs (auto) 1.58 Nucleated RBC % 0 Sodium 139 Potassium 3.9 Chloride 103 Carbon Dioxide 31.0 Anion Gap 5 BUN 15 Creatinine 0.74 Estim Creat Clear Calc 107.59 Est GFR (MDRD) Af Amer 142 Est GFR (MDRD) Non-Af 118 BUN/Creatinine Ratio 20.2 H Glucose 97 Calcium 9.1 Urine Opiates Screen NEGATIVE Urine Methadone Screen NEGATIVE Ur Barbiturates Screen NEGATIVE Ur Phencyclidine Scrn NEGATIVE Ur Amphetamines Screen NEGATIVE MDMA (Ecstasy) Screen NEGATIVE U Benzodiazepines Scrn NEGATIVE Urine Cocaine Screen NEGATIVE U Cannabinoids Screen NEGATIVE Ur Drug Screen Comment Ethyl Alcohol 06/14/21 16:00 WBC RBC Hgb Hct MCV MCH MCHC RDW Std Deviation RDW Coeff of Janet Plt Count MPV Immature Gran % (Auto) Neut % (Auto) Lymph % (Auto) [place] % (Auto) Eos % (Auto) Baso % (Auto) Absolute Neuts (auto) Absolute Lymphs (auto) Nucleated RBC % Sodium Potassium Chloride Carbon Dioxide Anion Gap BUN Creatinine Estim Creat Clear Calc Est GFR (MDRD) Af Amer Est GFR (MDRD) Non-Af BUN/Creatinine Ratio Glucose Calcium Urine Opiates Screen Urine Methadone Screen Ur Barbiturates Screen Ur Phencyclidine Scrn Ur Amphetamines Screen MDMA (Ecstasy) Screen U Benzodiazepines Scrn Urine Cocaine Screen U Cannabinoids Screen Ur Drug Screen Comment Ethyl Alcohol 6.0 <Dr. Bill Castellano, DO - Last Filed: 06/15/21 06:47> [facility] MDM Narrative Medical decision making narrative: Care of the patient was turned over to me. Patient is resting comfortably during his emergency department course. Patient is currently awaiting evaluation by social media job titles and psychiatry. Lab Data Labs: Laboratory Results - last 24 hr 06/14/21 06/14/21 06/14/21 15:55 16:00 16:00 WBC 6.8 RBC 4.14 L Hgb 14.6 Hct 44.5 MCV 107.5 H MCH 35.3 H MCHC 32.8 RDW Std Deviation 52.2 H RDW Coeff of Janet 12.9 Plt Count 211 MPV 8.6 Immature Gran % (Auto) 0.300 Neut % (Auto) 60.8 Lymph % (Auto) 23.1 [place] % (Auto) 12.4 H Eos % (Auto) 2.8 Baso % (Auto) 0.6 Absolute Neuts (auto) 4.2 Absolute Lymphs (auto) 1.58 Nucleated RBC % 0 Sodium 139 Potassium 3.9 Chloride 103 Carbon Dioxide 31.0 Anion Gap 5 BUN 15 Creatinine 0.74 Estim Creat Clear Calc 107.59 Est GFR (MDRD) Af Amer 142 Est GFR (MDRD) Non-Af 118 BUN/Creatinine Ratio 20.2 H Glucose 97 Calcium 9.1 Urine Opiates Screen NEGATIVE Urine Methadone Screen NEGATIVE Ur Barbiturates Screen NEGATIVE Ur Phencyclidine Scrn NEGATIVE Ur Amphetamines Screen NEGATIVE MDMA (Ecstasy) Screen NEGATIVE U Benzodiazepines Scrn NEGATIVE Urine Cocaine Screen NEGATIVE U Cannabinoids Screen NEGATIVE Ur Drug Screen Comment Ethyl Alcohol 06/14/21 16:00 WBC RBC Hgb Hct MCV MCH MCHC RDW Std Deviation RDW Coeff of Janet Plt Count MPV Immature Gran % (Auto) Neut % (Auto) Lymph % (Auto) [place] % (Auto) Eos % (Auto) Baso % (Auto) Absolute Neuts (auto) Absolute Lymphs (auto) Nucleated RBC % Sodium Potassium Chloride Carbon Dioxide Anion Gap BUN Creatinine Estim Creat Clear Calc Est GFR (MDRD) Af Amer Est GFR (MDRD) Non-Af BUN/Creatinine Ratio Glucose Calcium Urine Opiates Screen Urine Methadone Screen Ur Barbiturates Screen Ur Phencyclidine Scrn Ur Amphetamines Screen MDMA (Ecstasy) Screen U Benzodiazepines Scrn Urine Cocaine Screen U Cannabinoids Screen Ur Drug Screen Comment Ethyl Alcohol 6.0 <Dr. Tylor Braden MD - Last Filed: 06/15/21 15:04> MDM MDM Narrative Medical decision making narrative: Patient's been in the emergency department the last 2 days. He really does not follow a specific category. He is not a true psychiatric admission. He is more of a failure to thrive. His mom is improving currently in the ICU and has been extubated. No psychiatric facility will accept him. Adult Protective Services will not take ownership of his case. He wants to be discharged home. advisory services associate have been involved with this case and he will be discharged. Lab Data Labs: Laboratory Results - last 24 hr 06/14/21 06/14/21 06/14/21 15:55 16:00 16:00 WBC 6.8 RBC 4.14 L Hgb 14.6 Hct 44.5 MCV 107.5 H MCH 35.3 H MCHC 32.8 RDW Std Deviation 52.2 H RDW Coeff of Janet 12.9 Plt Count 211 MPV 8.6 Immature Gran % (Auto) 0.300 Neut % (Auto) 60.8 Lymph % (Auto) 23.1 [place] % (Auto) 12.4 H Eos % (Auto) 2.8 Baso % (Auto) 0.6 Absolute Neuts (auto) 4.2 Absolute Lymphs (auto) 1.58 Nucleated RBC % 0 Sodium 139 Potassium 3.9 Chloride 103 Carbon Dioxide 31.0 Anion Gap 5 BUN 15 Creatinine 0.74 Estim Creat Clear Calc 107.59 Est GFR (MDRD) Af Amer 142 Est GFR (MDRD) Non-Af 118 BUN/Creatinine Ratio 20.2 H Glucose 97 Calcium 9.1 Urine Opiates Screen NEGATIVE Urine Methadone Screen NEGATIVE Ur Barbiturates Screen NEGATIVE Ur Phencyclidine Scrn NEGATIVE Ur Amphetamines Screen NEGATIVE MDMA (Ecstasy) Screen NEGATIVE U Benzodiazepines Scrn NEGATIVE Urine Cocaine Screen NEGATIVE U Cannabinoids Screen NEGATIVE Ur Drug Screen Comment Ethyl Alcohol 06/14/21 16:00 WBC RBC Hgb Hct MCV MCH MCHC RDW Std Deviation RDW Coeff of Janet Plt Count MPV Immature Gran % (Auto) Neut % (Auto) Lymph % (Auto) [place] % (Auto) Eos % (Auto) Baso % (Auto) Absolute Neuts (auto) Absolute Lymphs (auto) Nucleated RBC % Sodium Potassium Chloride Carbon Dioxide Anion Gap BUN Creatinine Estim Creat Clear Calc Est GFR (MDRD) Af Amer Est GFR (MDRD) Non-Af BUN/Creatinine Ratio Glucose Calcium Urine Opiates Screen Urine Methadone Screen Ur Barbiturates Screen Ur Phencyclidine Scrn Ur Amphetamines Screen MDMA (Ecstasy) Screen U Benzodiazepines Scrn Urine Cocaine Screen U Cannabinoids Screen Ur Drug Screen Comment Ethyl Alcohol 6.0 Discharge Plan Triage Chief Complaint: Mental Health ED Provider: Aldo Henderson Dx/Rx/DC Orders Clinical Impression: Adult failure to thrive Prescriptions: No Action NK RF: 0 Primary Care Provider: Care Physician,No Primary Referrals: Christiano Morgan MD [NON-STAFF] - As soon as possible Care Physician,No Primary [Primary Care Provider] - Activity Restrictions/Additional Instructions: Follow-up with a primary care physician. Return if worse. Disposition Disposition: Home, Self Care Discharge Date/Time: 06/15/21 16:15
[2021-06-14 16:59] LABS: Amphetamine Urine VISTA NEGATIVE (<1000 ng/mL); Barbiturate Urine VISTA NEGATIVE (< 200 ng/mL); Benzodiazepine Urine VISTA NEGATIVE (< 200 ng/mL); Cocaine Urine VISTA NEGATIVE (< 300 ng/mL); Ecstacy Urine VISTA NEGATIVE (< 500 ng/mL); Methadone Urine VISTA NEGATIVE (< 300 ng/mL); PCP Urine VISTA NEGATIVE (< 25 ng/mL); THC Urine VISTA NEGATIVE (< 50 ng/mL); Vista UDS pH Range 5
--- NOTE | 2021-06-14 18:47 | ED.RN ---
PT STATES HE IS VERY HUNGRY, HAD A CAN OF CHICKEN NOODLE SOUP AND CAN OF TOMATO SOUP EARLIER TODAY. ATE 2 SANDWICHES, YOGURT, CHEERIOS AND MILK, 4 COOKIES, AND 3 SPRITES.
[2021-06-14 19:00] VITALS: RESP 18
[2021-06-14 20:00] VITALS: RESP 18
[2021-06-14 20:57] VITALS: BP 139/91; PULSE 102; RESP 18; TEMP 36.9; O2SAT 100
[2021-06-14 22:00] VITALS: RESP 18
--- NOTE | 2021-06-14 22:17 | ED.RN ---
DISCUSSED WITH PT NEED TO STAY IN ED UNTIL DECISIONS CAN BE MADE ON CURRENT LIVING SITUATION. PT RELUCTANTLY STATES HE WILL SPEND HE NIGHT IN THE ED. THIS RN FURTHER DISCUSSED HOME LIFE, PT ADMITS HE DOES NOT KNOW HOW TO USE A PHONE, DOES NOT KNOW HOW TO HEAT UP MEALS LEFT BY MEALS ON WHEELS. FURTHER ACKNOWLEDGES HE DOES NOT KNOW HOW TO DO LAUNDRY, UNABLE TO LEAVE HOUSE TO DO ANY SHOPPING. PT STATES MOM DID EVERYTHING. PT VERY GUARDED WHEN QUESTIONED ABOUT HOME SITUATION. PT DID ACKNOWLEDGE MY BED AT HOME IS PRETTY BAD, STATES ED BED IS MUCH NICER
[2021-06-14 23:00] VITALS: RESP 17
[2021-06-15] VITALS (13 sets, daily range): BP systolic 121–128; BP diastolic 95–100; PULSE 81–99; RESP 14–18; O2SAT 97–100
--- NOTE | 2021-06-15 02:04 | ED.RN ---
Crisis calls stating patient is pending at [facility] but they will not review his chart until the am.
--- NOTE | 2021-06-15 08:39 | ED.RN ---
Per Taina at crisis pt has been declined and per the board of mental health pt does not meet psych placement requirements. Dr Braden is aware and will call hospitalist to admit pt for possible SNF placement
--- NOTE | 2021-06-15 08:49 | NURSING ---
DR MJ BARAJAS
--- NOTE | 2021-06-15 08:55 | NURSING ---
CALLED [facility], AND LEFT MESSAGE
--- NOTE | 2021-06-15 09:27 | ED.RN ---
Arcelia from social work will be following up with the mental health board and will call back
--- NOTE | 2021-06-23 13:58 | CCN.REFER ---
REFERRED TO [facility] FOR TRIAL PERIOD TO SEE IF CAN HELP PATIENT FURTHER. HOME VISIT COMPLETED ON 06/21 BY THIS RN. PLEASE SEE [facility] NURSING NOTE FOR FURTHER DETAILS.
== END 2021-06-15 16:15 | disposition home or self-care (01) ==
PROVIDERS: Emergency Provider Emergency Medicine; Visit Provider Emergency Medicine
DX: R62.7 Adult failure to thrive (principal); Z87.11 Personal history of peptic ulcer disease; Z68.1 Body mass index [BMI] 19.9 or less, adult
CPT/HCPCS: 80048; 80307; 82077; 85025; 99282

== ENCOUNTER 2023-02-03 21:35 | Emergency (ER) | payer MEDICAID, SELFPAY ==
[2023-02-03 21:36] VITALS: BP 184/101; PULSE 90; RESP 23; TEMP 36.8; O2SAT 96; BMI 26.2
--- NOTE | 2023-02-03 22:05 | EDS_ITS ---
HPI History of Present Illness Chief Complaint: Chest Pain [facility] Medical History Gastric ulcer due to nonsteroidal anti-inflammatory drug (NSAID) GERD (gastroesophageal reflux disease) Peptic ulcer disease Home Medications NK 02/21/21 [History Last Taken Unknown] Allergy/AdvReac Type Severity Reaction Status Date / Time No Known Allergies Allergy Verified 02/03/23 21:44 Social History Smoking Status: Never smoker EXAM Physical Exam Const Vital Signs: 02/03/23 21:36 02/03/23 22:26 Temperature 98.2 F Temperature Source Temporal Pulse Rate 90 Respiratory Rate 23 H Blood Pressure 184/101 H Blood Pressure Mean 128 Pulse Ox 96 Oxygen Delivery Method Room Air Room Air Heart Score History: Slightly/Non-Suspicious ECG: Normal Age: >45 - <65 years Risk Factors: No Risk Factors Troponin: </= Normal Limit Score: 1 MDM MDM MDM Narrative Medical decision making narrative: HISTORY OF PRESENT ILLNESS: 52-year-old male here with concern for chest pain. States it resolved prior to arrival. He denies associated shortness of breath. Denies recent cough or illness. The patient denies recent surgery in the last 4 weeks or immobilization in the last 3 days, denies previous diagnosis of DVT or PE, hemoptysis, unilateral leg swelling or malignancy with treatment the last 6 months or palliative. No estrogen use noted. Patient denies sudden onset of pain, no tearing sensation, no migratory symptoms, no new numbness, weakness or loss of sensation. Patient denies family history or personal history of Connective tissue disorders (Marfan's Syndrome, Alfie Danlos etc). REVIEW OF SYSTEMS: Pertinent positives: Chest pain, rash Pertinent negatives: Focal weakness, abdominal pain, nausea, vomiting, diaphoresis, shortness of breath, cough, leg swelling PHYSICAL EXAM: Nursing triage notes reviewed, Vital signs reviewed Constitutional: please see mdm HENT: MMM Eyes: Pupils equal round and reactive to light, Extraocular muscles intact Neck: No stridor, no JVD, full neck ROM Lungs: Clear to auscultation, No wheezing or rales. No increased work of breathing, no conversational dyspnea, no accessory muscle use, no nasal flaring. No respiratory distress noted Heart: Regular rate and rhythm, No murmurs, No rubs and No gallops, 2+ distal pulses (radial, femoral, posterior tibial) in all extremities Abdomen: Soft, there is no tenderness, rigidity, rebound or guarding, no obvious peritoneal signs, no palpable pulsatile abdominal masses, no auscultated abdominal bruit : No CVAT Extremities: No edema Neuro: No focal neurological deficits, cranial nerves II through XII intact, 5/5 strength in all extremities. Intact sensation to light touch in all extremities, 2+ reflexes bilateral patella tendons. Normal gait. No ataxia. Skin: N nonspecific erythema to intertriginous areas including right axilla and bilateral groin, no obvious herpetic lesions, no chancre, no other abnormalities noted. No crepitus, no bullae, no induration or fluctuance noted MEDICAL DECISION MAKING: Chief Complaint: Chest pain External records reviewed: Imaging studies reviewed: No recent cardiac catheterizations, stress test or echocardiograms noted Factors affecting care: GERD, peptic ulcer disease Social determinants of health: none History obtained from others: none Consults: none MDM Narrative: The patient was initially tachycardic, tachypneic but afebrile. Exam without focal cardiopulmonary abnormalities. Rash noted in intertriginous areas resembles likely tinea recommended topical antifungal medication. In terms of the patient's chest pain I considered the following differential diagnosis: ACS, GERD, PE, dissection, pneumothorax I obtained a broad lab and imaging workup to further elucidate the etiology of the patient's complaints. ALL IMAGES (IF OBTAINED) HAVE BEEN PERSONALLY REVIEWED AND INTERPRETED BY MYSELF. EKG with normal sinus rhythm, left axis deviation, prolonged QT interval, no obvious ischemic changes or signs of STEMI High-sensitivity troponin is negative, no evidence of myocardial ischemia CBC without leukocytosis, severe anemia, no thrombocytopenia. BMP without evidence of significant electrolyte abnormalities, no anion gap, no acute kidney injury. I have personally reviewed the patient's chest x-ray. Chest x-ray is unremarkable for pulmonary edema, pneumothorax, pneumonia or foc al cardiopulmonary abnormality. PE less likely given low risk Wells score. Aortic dissection is thought to be less likely given no sudden ripping or tearing pain, migratory pain, palpable pulse inequalities, no focal neurologic deficits concurrent with chest pain. Chance of dissection less than 02/1999. Pericarditis less likely given no pathognomonic EKG changes (no diffuse ST elevations, DE depressions). GI etiology (i.e. Boerhaave syndrome) less likely given no chest or neck crepitus, no vomiting or forced retching. I completed a HEART Score to screen for Major Adverse Cardiac Event (MACE) in this patient. The evidence indicates that the patient is very low risk for MACE and this is consistent with my clinical intuition. The risk of further workup or hospitalization for MACE is likely higher than the risk of the patient having a MACE. It is, therefore, in the patient?s best interest not to do additional emergent testing or to be hospitalized for MACE at this time. Synthesis the patient history, exam, labs images suggest no acute life-limiting etiology. Shared Decision-Making No hospitalization indicated I have discussed with the patient my clinical impression and the result of the HEART Score to screen for MACE, as well as the risks of further testing and hospitalization. The HEART Score shows that the risk for MACE is less than 1%. Although the risk of MACE has not been completely eliminated, the risks of further testing or hospitalization for MACE likely exceed any potential benefit, and the patient agrees with not pursuing further emergent evaluation or hosp italization for MACE at this time. The patient and/or family, caregivers express understanding. The patient and/or family, caregivers agrees with the plan. Total critical care time today provided was at least 0 minutes. This excludes separately billable procedures. Critical care time (if documented) is secondary to the patient having high probability of clinically significant/life threateni ng deterioration in the patient's condition which required my urgent intervention. Impression: 1. Chest pain 2. Tinea cruris Dispo: discharge Lab Data Attestation: I reviewed the patient's lab results. Labs: Laboratory Results - last 24 hr 02/03/23 21:30 WBC 8.4 RBC 5.11 Hgb 16.2 Hct 49.3 MCV 96.5 H MCH 31.7 MCHC 32.9 RDW Std Deviation 47.1 H RDW Coeff of Janet 13.2 Plt Count 301 MPV 9.7 Immature Gran % (Auto) 0.100 Neut % (Auto) 46.7 L Lymph % (Auto) 36.6 [place] % (Auto) 13.7 H Eos % (Auto) 2.3 Baso % (Auto) 0.6 Absolute Neuts (auto) 3.9 Absolute Lymphs (auto) 3.08 Nucleated RBC % 0 Sodium 136 Potassium 2.9 L Chloride 102 Carbon Dioxide 25.0 Anion Gap 9 BUN 10 Creatinine 1.22 Estim Creat Clear Calc 79.14 Est GFR (MDRD) Af Amer 80 Est GFR (MDRD) Non-Af 66 BUN/Creatinine Ratio 8.2 L Glucose 105 Calcium 9.5 Troponin I High Sens 8 Radiography Diagnostic Testing: Clinical Impression(s) from Imaging Studies Chest X-Ray 02/03/23 22:34 IMPRESSION: Normal x-ray examination of the chest. Electronically Signed: Dragan Bobo MD at 22:54 EST , Discharge Plan Triage Chief Complaint: Chest Pain ED Provider: Marcio Russ Dx/Rx/DC Orders Prescriptions: No Action NK Primary Care Provider: Care Physician,No Primary Referrals: Care Physician,No Primary [Primary Care Provider] -
--- NOTE | 2023-02-03 22:34 | RAD_ITS ---
STUDY: X-RAY CHEST REASON FOR EXAM: Male, 52 years old. chest pain TECHNIQUE: Single AP portable view of the chest. COMPARISON: 02/21/2021 FINDINGS: The lungs are clear and expanded. There is no demonstrated pleural abnormality. Normal size heart. Normal mediastinum and elena. Normal visualized pulmonary arteries. Normal visualized aortic arch and descending thoracic aorta. Normal visualized thoracic spine. Normal visualized ribs, clavicles, and shoulders. There is no demonstrated abnormality of the visualized soft tissue structures of the upper abdomen. RAD/Chest 1 View (Portable) IMPRESSION: Normal x-ray examination of the chest. Electronically Signed: Dragan Bobo MD at 22:54 EST ,
[2023-02-03 23:01] LABS: Absolute Lymphocyte Count 3.08 X10^3/uL (0.83-4.51); Absolute Neutrophil Count 3.9 X10^3/uL (2.0-7.7); Basophil# 0.05 X10^3/uL; Basophil% 0.6 % (0-1); Eosinophil# 0.19 X10^3/uL; Eosinophils% 2.3 % (0-5); Hematocrit 49.3 % (40-54); Hemoglobin 16.2 g/dL (13.0-16.5); Lymphocyte # 3.08 X10^3/ul (0.83-4.51); Lymphocyte % 36.6 % (19-41); Mean Corp Hgb Conc 32.9 g/dL (32-36); Mean Corpuscular Hgb 31.7 pg (27.0-32.0); Mean Corpuscular Volume 96.5 fL (80-94); Mean Platelet Vol. 9.7 fl (6.2-12.0); Monocyte# 1.15 X10^3/uL; Monocyte% 13.7 % (0-10); NRBC Flagged by Analyzer 0 % (0-5); Neutrophil # 3.93 X10^3/uL (2.7-7.7); Neutrophil % 46.7 % (47-70); Platelet Count 301 K/mm3 (150-450); RBC Distribution Width CV 13.2 % (11.6-14.6); RBC Distribution Width SD 47.1 fl (35.1-43.9); Red Blood Count 5.11 M/mm3 (4.6-6.2); White Blood Count 8.4 K/mm3 (4.4-11.0)
[2023-02-03 23:21] LABS: Anion Gap 9 (5-15); BUN 10 mg/dL (7-18); BUN/Creat Ratio 8.2 RATIO (10-20); Calcium,Total 9.5 mg/dL (8.5-10.1); Chloride 102 mmol/L (98-107); Creatinine, Serum 1.22 mg/dL (0.70-1.30); EST Glomerular Filtration Rate 66 mL/min (>60); Est Glom Filt Rate - Afr Amer 80 mL/min (>60); Estimated Creatinine Clearance 79.14 ml/min; Glucose 105 mg/dL (74-106); Potassium 2.9 mmol/L (3.5-5.1); Sodium Level 136 mmol/L (136-145); Troponin-I HS 8 pg/mL (3.0-78.0)
[2023-02-04 00:12] VITALS: BP 155/99; PULSE 90; RESP 16; O2SAT 99
== END 2023-02-04 00:13 | disposition home or self-care (01) ==
PROVIDERS: Emergency Provider Emergency Medicine; Visit Provider Emergency Medicine
DX: R07.9 Chest pain, unspecified (principal); B35.6 Tinea cruris
CPT/HCPCS: 71045; 80048; 84484; 85025; 93005; 99284

== ENCOUNTER 2023-07-08 12:17 | Emergency (ER) | payer MEDICAID, SELFPAY ==
[2023-07-08 12:18] VITALS: BP 204/117; PULSE 71; RESP 18; TEMP 36.3; O2SAT 95; BMI 28.3
--- NOTE | 2023-07-08 12:39 | EX.ED.DYSGE1 ---
HPI History of Present Illness Chief Complaint: Nosebleed Narrative Narrative: 52-year-old male who denies significant past medical history presents for bleeding from his right nares that began approximately an hour or 2 ago. He relates history that he had a nosebleed on Sunday, the last time he had a nosebleed was last year. The bleeding from his left nares stopped on Sunday, and he began bleeding from the right nares today, but it will not stop. If she does not like to come to the hospital because he states that when he had a nosebleed in the past, the ambulance did not want to do anything. He denies any other bleeding diathesis, no dark stool. No other symptoms. [facility] Medical History GERD (gastroesophageal reflux disease) Gastric ulcer due to nonsteroidal anti-inflammatory drug (NSAID) Peptic ulcer disease Home Medications ?Medication ?Instructions ?Recorded ?Last Taken ?Type NK 02/21/21 Unknown History Allergy/AdvReac Type Severity Reaction Status Date / Time No Known Allergies Allergy Verified 07/08/23 12:20 Social History Smoking Status: Never smoker ROS ROS ED ROS Narrative Constitutional: No fever, no chills. HEENT: No sore throat. No neck pain. No loss of vision. No rhinorrhea. Bleeding from right nares. Recent epistaxis, no trauma. Cardiovascular: No chest pain. No palpitations. No pedal edema. Respiratory: No cough, no shortness of breath. Abdominal: No abdominal pain. No nausea. No vomiting. Genitourinary: No dysuria. No hematuria. Musculoskeletal: No myalgias. No arthralgias. Neurologic: No headaches. No dizziness. No lightheadedness. Skin: No rash. No change in color. Psychiatric: No depression. No anxiety. EXAM Physical Exam Narrative Exam Narrative: Afebrile. Vital signs noted. HEENT: Normocephalic. Atraumatic. PERRL, EOMI. Neck soft and supple. No point tenderness or step off. Positive bleeding from right nares., No other posterior rapid pharynx bleeding. Cardiovascular: Regular rate and rhythm. No murmurs, rubs, or gallops appreciated. Respiratory: No tachypnea. Lungs clear to auscultation bilaterally. Gastrointestinal: Abdomen soft, nontender, with normoactive bowel sounds. No rebound or guarding. Neurological: Awake. Alert. Nonfocal, nonlateralizing. Skin: No rash. Normal color. No pallor. No other noted bleeding diathesis. Musculoskeletal: No pedal edema. Full range of motion extremities. Const Vital Signs: 07/08/23 12:18 07/08/23 13:15 07/08/23 14:00 Temperature 97.3 F L 97.9 F Temperature Source Temporal Pulse Rate 71 99 107 H Respiratory Rate 18 18 18 Blood Pressure 204/117 H 193/123 H 190/114 H Blood Pressure Mean 146 146 139 Pulse Ox 95 92 96 Oxygen Delivery Method Room Air Room Air MDM MDM MDM Narrative Medical decision making narrative: Nasal clamp was placed. I will placed an Afrin and lidocaine soaked cotton ball in the right nares after having him clear any clots from his right nares. Recheck after blowing clots from nares showed no evidence of posterior pharynx bleeding. Procedure note: Nasal clamp was removed. Patient cleared clots out of the right nares with blowing nose. Lidocaine 4% and Afrin soaked cottonball was placed in the nares for 15 to 20 minutes. This was removed and large clot was removed as well. Merisel was inserted without difficulty and soaked with normal saline. Patient tolerated procedure well. Patient did have elevated blood pressure of 204/117. He is asymptomatic with this. I do not feel he needs any imaging, he was given clonidine 0.1 here and told to follow-up regarding his blood pressure as he is not having any chest pain or shortness of breath or headache. He was also given the number to otolaryngology or told to return to the emergency department for packing removal in the next 3 to 5 days. I feel he can be discharged to follow-up. Return instructions reviewed. Disposition is discharged home in stable condition. Discharge Plan Triage Chief Complaint: Nosebleed ED Provider: Tito Elizondo Dx/Rx/DC Orders Clinical Impression: Epistaxis, Elevated blood pressure reading Instructions: ED Epistaxis (Adult), ED Hypertension, To Be Confirmed Prescriptions: No Action NK Primary Care Provider: Care Physician,No Primary Referrals: Jeanmarie Arguello MD [Med Staff - Active Staff] - 3-5 Days [facility] [Non-Staff] - As soon as possible Care Physician,No Primary [Primary Care Provider] - Activity Restrictions/Additional Instructions: Have packing removed in 3 to 5 days by ENT or return to the emergency department. You have elevated blood pressure here today, you need to have this addressed by primary care provider. Print Language: Italian Disposition Disposition: Home, Self Care Discharge Date/Time: 07/08/23 14:34
[2023-07-08] MEDS: Oxymetazoline 0.05% 1 SPRAY SPRAY.BTL 2 SPRAY NASAL (12:57)
[2023-07-08] MEDS: Lidocaine 4% 50 ML Bottle TOPICAL (12:58)
[2023-07-08] MEDS: cloNIDine HCl 0.1 MG Tablet PO (13:00)
[2023-07-08 13:15] VITALS: BP 193/123; PULSE 99; RESP 18; O2SAT 92
[2023-07-08 14:00] VITALS: BP 190/114; PULSE 107; RESP 18; TEMP 36.6; O2SAT 96
== END 2023-07-08 14:34 | disposition home or self-care (01) ==
PROVIDERS: Emergency Provider Emergency Medicine; Visit Provider Emergency Medicine
DX: R04.0 Epistaxis (principal); R03.0 Elevated blood-pressure reading, without diagnosis of hypertension
CPT/HCPCS: 30905; 99282

== ENCOUNTER 2023-07-09 10:06 | Emergency (ER) | payer MEDICAID, SELFPAY ==
[2023-07-09 10:07] VITALS: BP 216/121; PULSE 106; RESP 18; TEMP 36.9; O2SAT 96; BMI 27.6
--- NOTE | 2023-07-09 11:17 | EDS_ITS ---
HPI HPI - URI History of Present Illness Chief Complaint: Cold Sx Narrative Narrative: 52-year-old male presenting with congestion to his left side of his nose. He was here yesterday for bloody nose and had this packed. He states that after the Afrin more often he started to have congestion of the left side of the nose which came and went a couple of times. He was discharged home with Afrin but states there was not instructions on how to use it. He did not try the Afrin. He has not tried any other decongestions. He states he does not have a phone. He states he had to go knock on doors and find somebody with the phone so he could call 911. Patient states he has not any bleeding from the right side of his nose. He was given follow-up with ENT for this. It is noted yesterday that the patient had elevated blood pressures but he does not have a headache, chest pain, shortness of breath. ROS ROS ED Constitutional Constitutional ED: Denies chills, fever(s) or sweats Eyes Eyes: Denies blurry vision or change in vision ENT ENT ED: Reports other Details: Nasal congestion ; Denies ear pain or sore throat Cardiovascular Cardiovascular: Denies chest pain, palpitations or racing heartbeat Respiratory/Chest Respiratory/Chest: Denies cough, dyspnea or sputum Gastrointestinal Gastrointestinal: Denies abdominal pain, constipation, diarrhea, nausea or vomiting Genitourinary Genitourinary ED: Denies dysuria, hematuria or urinary frequency Musculoskeletal Musculoskeletal: Denies arthralgias, myalgias or neck pain Integumentary Denies abscess, Abrasions or rash Neurologic Neurologic: Denies headache(s), paresthesias or weakness Psychiatric Psychiatric: Denies anxiety, depression, suicidal ideation or suicidal thoughts Endocrine Endocrinology: Denies polydipsia or polyuria [facility] Medical History GERD (gastroesophageal reflux disease) Gastric ulcer due to nonsteroidal anti-inflammatory drug (NSAID) Peptic ulcer disease Home Medications ?Medication ?Instructions ?Recorded ?Last Taken ?Type sodium chloride 0.65 % nasal spray 2 spray intranasal Q4H PRN dry 07/09/23 Unknown Rx aerosol (Saline Mist) nasal passages #44 mL Allergy/AdvReac Type Severity Reaction Status Date / Time No Known Allergies Allergy Verified 07/08/23 12:20 Social History Smoking Status: Never smoker EXAM Physical Exam Const Vital Signs: 07/09/23 10:07 07/09/23 10:17 Temperature 98.5 F Temperature Source Oral Pulse Rate 106 H Respiratory Rate 18 Respiratory Effort Normal Respiratory Pattern Normal Blood Pressure 216/121 H Blood Pressure Mean 152 Pulse Ox 96 Oxygen Delivery Method Room Air Positive well nourished General Appearance ED: NAD HEENT Reports moist mucous membranes HEENT Narrative: Nasal packing noted in right nare. Left nare patent. No congestion. No epistaxis. normocephalic Throat: posterior oropharynx normal Neck no lymphadenopathy Cardio Rate: regular rate Rhythm: regular rhythm Neuro oriented x3 and CN's II-XII intact bilaterally Sensorium / Orientation: alert Motor Exam: strength 5/5 throughout Psych mental status grossly normal MDM MDM MDM Narrative Medical decision making narrative: Patient presenting with congestion. He had his right nare packed yesterday. He has not any bleeding from this. He has not used the Afrin that was given to him for the congestion. He states he was mostly concerned that he had a reaction to the packing. I counseled him that it is possible he could have some congestion from the packing but that would be what the Afrin is for that he can do saline rinses. I wrote a prescription for this. He was given some more Afrin he can take home. His blood pressure is again high today as it was yesterday. Patient is still asymptomatic of the blood pressure I think he can follow-up with [facility] and ENT. He is discharged home in stable condition. Impression: 1. High blood pressure 2. Nasal congestion Discharge Plan Triage Chief Complaint: Cold Sx ED Provider: Maximiliano Howard Dx/Rx/DC Orders Clinical Impression: Elevated blood pressure reading, Congestion of nasal sinus Instructions: ED Hypertension, To Be Confirmed Prescriptions: New Saline Mist 0.65 % aerosol,spray 2 spray intranasal Q4H PRN (Reason: dry nasal passages) Qty: 44 0RF Rx Instructions: while awake Primary Care Provider: Care Physician,No Primary Referrals: [facility] [Provider Group] - 3-5 Days Jeanmarie Arguello MD [Med Staff - Active Staff] - 1-2 Days if not improving Care Physician,No Primary [Primary Care Provider] - Print Language: Khmer Disposition Disposition: Home, Self Care
[2023-07-09] MEDS: Oxymetazoline 0.05% 1 SPRAY SPRAY.BTL 2 SPRAY NASAL (11:43)
[2023-07-09 11:44] VITALS: BP 210/120; PULSE 74; RESP 18; TEMP 36.4; O2SAT 97
--- NOTE | 2023-07-09 11:45 | ED.RN ---
had length discussion regarding bp management and f/u with . pt states he does not have phone, offered unit phone to call and make appt prior to leaving. pt declined. taxi called per pt request
--- NOTE | 2023-07-09 12:01 | ED.RN ---
as pt was getting dressed suddenly started leg cramps and wants dr to address. dr medina aware and new orders. jose held
[2023-07-09] MEDS: 0.9% Normal Saline (1000mL) 1,000 ML 999 ML IV (12:16)
[2023-07-09 12:17] VITALS: BP 150/135; PULSE 93; RESP 18; O2SAT 97
[2023-07-09 12:17] LABS: Absolute Lymphocyte Count 1.57 X10^3/uL (0.83-4.51); Absolute Neutrophil Count 7.4 X10^3/uL (2.0-7.7); Basophil# 0.08 X10^3/uL; Basophil% 0.8 % (0-1); Eosinophil# 0.14 X10^3/uL; Eosinophils% 1.4 % (0-5); Hematocrit 49.7 % (40-54); Hemoglobin 16.4 g/dL (13.0-16.5); Lymphocyte # 1.57 X10^3/ul (0.83-4.51); Lymphocyte % 15.2 % (19-41); Mean Corpuscular Hgb 31.4 pg (27.0-32.0); Mean Corpuscular Volume 95.2 fL (80-94); Mean Platelet Vol. 8.5 fl (6.2-12.0); Monocyte% 10.6 % (0-10); NRBC Flagged by Analyzer 0 % (0-5); Neutrophil % 71.5 % (47-70); Platelet Count 273 K/mm3 (150-450); RBC Distribution Width CV 13.7 % (11.6-14.6); RBC Distribution Width SD 47.9 fl (35.1-43.9); Red Blood Count 5.22 M/mm3 (4.6-6.2); White Blood Count 10.3 K/mm3 (4.4-11.0)
[2023-07-09 12:31] LABS: Anion Gap 9 (5-15); BUN 13 mg/dL (7-18); Calcium,Total 9.8 mg/dL (8.5-10.1); Chloride 100 mmol/L (98-107); Creatinine, Serum 1.18 mg/dL (0.70-1.30); EST Glomerular Filtration Rate 69 mL/min (>60); Est Glom Filt Rate - Afr Amer 83 mL/min (>60); Estimated Creatinine Clearance 81.82 ml/min; Glucose 110 mg/dL (74-106); Potassium 3.5 mmol/L (3.5-5.1); Sodium Level 135 mmol/L (136-145)
[2023-07-09] MEDS: Ketorolac 15 MG/ML Vial IV (14:35)
[2023-07-09 14:39] VITALS: BP 181/112; PULSE 89; RESP 16; TEMP 36.1; O2SAT 98
--- NOTE | 2023-07-09 14:40 | ED.RN ---
pt alkong to self or someone else mumbling in room. no one else there/ nonsensical
--- NOTE | 2023-07-09 14:52 | ED.RN ---
called for taxi per pt request
== END 2023-07-09 14:59 | disposition home or self-care (01) ==
PROVIDERS: Emergency Provider Student in an Organized Health Care Education/Training Program; Visit Provider Student in an Organized Health Care Education/Training Program
DX: R09.81 Nasal congestion (principal); R03.0 Elevated blood-pressure reading, without diagnosis of hypertension
CPT/HCPCS: 80048; 85025; 96361; 96374; 99282; J7030; A4216

== ENCOUNTER 2023-07-09 18:36 | Emergency (ER) | payer MEDICAID, SELFPAY | END 2023-07-09 19:47 | disposition left against medical advice (07) | LOC: ED 19:54 | DX: R06.02 Shortness of breath (principal) ==

== ENCOUNTER 2023-07-10 22:14 | Emergency (ER) | payer MEDICAID, SELFPAY ==
[2023-07-10 22:15] VITALS: BP 216/130; PULSE 115; RESP 14; TEMP 35.5; O2SAT 94
[2023-07-11 00:14] VITALS: BP 203/125; PULSE 101; RESP 20; O2SAT 99
[2023-07-11] MEDS: Mixture 30 ML Bottle 5 ML TOPICAL (00:14)
[2023-07-11] MEDS: Labetalol (Compound) 20 MG/4 ML SYRINGE IV (00:15)
[2023-07-11 00:27] VITALS: BP 188/113; PULSE 99; RESP 18; O2SAT 93
[2023-07-11 00:27] LABS: Absolute Lymphocyte Count 1.56 X10^3/uL (0.83-4.51); Absolute Neutrophil Count 7.3 X10^3/uL (2.0-7.7); Basophil# 0.07 X10^3/uL; Basophil% 0.7 % (0-1); Eosinophil# 0.13 X10^3/uL; Eosinophils% 1.2 % (0-5); Hematocrit 45.7 % (40-54); Hemoglobin 15.2 g/dL (13.0-16.5); Lymphocyte # 1.56 X10^3/ul (0.83-4.51); Lymphocyte % 14.6 % (19-41); Mean Corp Hgb Conc 33.3 g/dL (32-36); Mean Corpuscular Hgb 31.8 pg (27.0-32.0); Mean Corpuscular Volume 95.6 fL (80-94); Mean Platelet Vol. 8.7 fl (6.2-12.0); Monocyte# 1.34 X10^3/uL; Monocyte% 12.6 % (0-10); NRBC Flagged by Analyzer 0 % (0-5); Neutrophil # 7.32 X10^3/uL (2.7-7.7); Neutrophil % 68.7 % (47-70); Platelet Count 246 K/mm3 (150-450); RBC Distribution Width CV 13.6 % (11.6-14.6); RBC Distribution Width SD 47.9 fl (35.1-43.9); Red Blood Count 4.78 M/mm3 (4.6-6.2); White Blood Count 10.7 K/mm3 (4.4-11.0)
[2023-07-11 00:36] LABS: Anion Gap 8 (5-15); BUN 17 mg/dL (7-18); BUN/Creat Ratio 17.7 RATIO (10-20); Calcium,Total 9.1 mg/dL (8.5-10.1); Chloride 105 mmol/L (98-107); Creatinine, Serum 0.96 mg/dL (0.70-1.30); EST Glomerular Filtration Rate 87 mL/min (>60); Est Glom Filt Rate - Afr Amer 105 mL/min (>60); Glucose 111 mg/dL (74-106); Potassium 3.7 mmol/L (3.5-5.1); Sodium Level 138 mmol/L (136-145)
[2023-07-11 00:45] VITALS: BP 180/113; PULSE 96; RESP 16; O2SAT 95
--- NOTE | 2023-07-11 01:04 | EX.ED.DYSGE1 ---
HPI History of Present Illness Chief Complaint: Nosebleed Informant: patient Narrative Narrative: Patient states he sneezed a couple times tonight and started having heavy nosebleed. He already had a packing and because this happened a couple days ago when he was seen here in the ER and had a packing placed on the right side and is bleeding again from the same side. He has been having trouble getting it to stop. Denies any recent illness. States he does not have a phone, he lives alone, does not leave his house does not drive has limited access to care although he has insurance, and does not follow-up with anybody, was told he had high blood pressure last time he was here, not prescribed a medication, does not see a PCP. He states he has a showcase maker stopped by once a week, but he feels like he needs more help. [facility] Medical History GERD (gastroesophageal reflux disease) Gastric ulcer due to nonsteroidal anti-inflammatory drug (NSAID) Peptic ulcer disease Home Medications ?Medication ?Instructions ?Recorded ?Last Taken ?Type sodium chloride 0.65 % nasal spray 2 spray intranasal Q4H PRN dry 07/09/23 Unknown Rx aerosol (Saline Mist) nasal passages #44 mL lisinopril 20 1 tab PO DAILY #30 tabs 07/11/23 Unknown Rx mg-hydrochlorothiazide 12.5 mg tablet Allergy/AdvReac Type Severity Reaction Status Date / Time No Known Allergies Allergy Verified 07/10/23 22:17 Social History Smoking Status: Never smoker [facility] ED Constitutional Constitutional ED: Denies chills or fever(s) Eyes Eyes: Denies change in vision or diplopia ENT ENT ED: Reports other Details: Epistaxis see HPI ; Denies rhinorrhea or sore throat Cardiovascular Cardiovascular: Denies chest pain or palpitations Respiratory/Chest Respiratory/Chest: Denies cough or dyspnea Gastrointestinal Gastrointestinal: Denies abdominal pain, diarrhea, nausea or vomiting Genitourinary Genitourinary ED: Denies dysuria or hematuria Musculoskeletal Musculoskeletal: Reports other Details: Occasional pain in his right thigh and buttock not present right now. ; Denies back pain or neck pain Integumentary Denies abscess or rash Neurologic Neurologic: Denies headache(s), paresthesias or weakness Psychiatric Psychiatric: Denies suicidal thoughts EXAM Physical Exam Const Vital Signs: 07/10/23 22:15 07/11/23 00:14 07/11/23 00:27 Temperature 96 F L Temperature Source Temporal Pulse Rate 115 H 101 H 99 Respiratory Rate 14 20 H 18 Blood Pressure 216/130 H 203/125 H 188/113 H Blood Pressure Mean 158 151 138 Pulse Ox 94 99 93 Oxygen Delivery Method Room Air Room Air 07/11/23 00:45 Temperature Temperature Source Pulse Rate 96 Respiratory Rate 16 Blood Pressure 180/113 H Blood Pressure Mean 135 Pulse Ox 95 Oxygen Delivery Method Room Air Positive well nourished and well developed General Appearance ED: well developed and NAD HEENT Reports moist mucous membranes normocephalic and atraumatic Eyes PERRL and EOMs intact bilaterally Neck full ROM and supple Resp normal respiratory effort and clear to auscultation bilaterally Cardio regular rate, regular rhythm and no murmurs GI non-tender and non-distended Auscultation: normoactive bowel sounds Palpation: soft Back/Spine no CVA tenderness General Back: other FROM Extremity normal to inspection General Extremety ED: Negative for edema, pulses abnormal or tenderness General Extremity: Negative for edema or pulses abnormal Neuro oriented x3, CN's II-XII intact bilaterally and no sensory deficits noted Sensorium / Orientation: awake and alert Motor Exam: strength 5/5 throughout Skin no rashes or lesions noted and no wounds MDM MDM MDM Narrative Medical decision making narrative: Patient with very high blood pressure 216/130, along with the sneezing that he had and concerned this is related to the cause of the nosebleed. I packed his nose see the procedure note. Given labetalol, his pressure came down to 180/113. He states he wants to be admitted for social reasons, however I do not see that being an appropriate means to him and here. 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 I did obtain some labs to screen for renal damage, but he does not have any, and the rest of his blood counts are excellent. As I discussed with the patient there is no acute medical reason to admit him right now. Bring his blood pressure down 20 or 30% is indicated with high blood pressure like this and not knowing how long it has been elevated, and we accomplish that here. I am putting him on a prescription antihypertensive, and advising that he communicate with his showcase maker for close outpatient follow-up. If he does not already have a physician I am referring him to the next person on the unassigned list. Lab Data Attestation: I reviewed the patient's lab results. Labs: Laboratory Results - last 24 hr 07/11/23 00:12 WBC 10.7 RBC 4.78 Hgb 15.2 Hct 45.7 MCV 95.6 H MCH 31.8 MCHC 33.3 RDW Std Deviation 47.9 H RDW Coeff of Janet 13.6 Plt Count 246 MPV 8.7 Immature Gran % (Auto) 2.200 H Neut % (Auto) 68.7 Lymph % (Auto) 14.6 L Hettinger % (Auto) 12.6 H Eos % (Auto) 1.2 Baso % (Auto) 0.7 Absolute Neuts (auto) 7.3 Absolute Lymphs (auto) 1.56 Nucleated RBC % 0 Sodium 138 Potassium 3.7 Chloride 105 Carbon Dioxide 25.0 Anion Gap 8 BUN 17 Creatinine 0.96 Est GFR (MDRD) Af Amer 105 Est GFR (MDRD) Non-Af 87 BUN/Creatinine Ratio 17.7 Glucose 111 H Calcium 9.1 Procedures Other Procedures Procedure(s): Epistaxis care: After removing the knot inflatable rapid Rhino that was present in the right naris, there was mild bleeding and lots of clots. Patient had attempted to remove some of it I manually remove the rest of the clots with tissues, there was mild active bleeding, unable to tell where it is coming from. After instilling 2 cc of aerosolized Brick solution, I placed a 5.5 cm inflatable rapid Rhino which resulted in good hemostasis. Tolerated well no complications. Discharge Plan Triage Chief Complaint: Nosebleed ED Provider: Hal Bae Dx/Rx/DC Orders Clinical Impression: Epistaxis, Accelerated hypertension Instructions: ED Epistaxis (Adult) Prescriptions: New lisinopril-hydrochlorothiazide 20-12.5 mg tablet 1 tab PO DAILY Qty: 30 0RF No Action Saline Mist 0.65 % aerosol,spray 2 spray intranasal Q4H PRN (Reason: dry nasal passages) Qty: 44 0RF Rx Instructions: while awake Primary Care Provider: Care Physician,No Primary Referrals: Brittany Bates MD [Med Staff - Institutional Research Director] - As soon as possible Jeanmarie Arguello MD [Med Staff - Active Staff] - 2 Days Care Physician,No Primary [Primary Care Provider] - Print Language: Kazakh Disposition Disposition: Home, Self Care
[2023-07-11 02:00] VITALS: PULSE 97; RESP 18; O2SAT 97
[2023-07-11 02:01] VITALS: BP 193/111; PULSE 97; RESP 18; TEMP 35.9; O2SAT 97
--- NOTE | 2023-07-13 11:53 | CM.ED ---
Social Work Spoke with patient's case packer and sealer at [facility] Jessica Singleton ([phone], extension [phone]; cell [phone]). Updated Jessica to patient's ED visits between 6..24 and 6.06.28. Discussed need for follow up with primary care services. This bid writer verified patient's home situation and dynamics. -Housing: Patient has housing, and rent is deducted automatically from checking account. Utilities are included in the rent. -Finances: Patient is living off of inheritance from mother's estate and gets a monthly stipend put into the checking account. Patient does not write checks and does not have a debit card. manager plant takes patient to the bank to get high, and patient uses high to buy what is needed. -Insurance: Patient does have medicaid through [employer], and food assistance. -Food: Patient has food card and case packer and sealer takes patient once a month to buy groceries for the month -Phone: Patient's previous case packer and sealer did get patient a [employer] phone, but it is thought patient threw the package out. Patient does not currently have a phone. Jessica is working to get patient to agree to a landline. -Transportation: Jessica provides transportation. -Support: Jessica is patient's primary support and has a standing appointment with patient every Sunday at 1130. -Mental Health: Patient was attempted to be engaged with counseling at [facility] but patient has not wanted this.? Patient is thought to possibly have a diagnosis of somewhere on autism spectrum. Patient has no formal diagnosis has been made. Jessica reports getting patient the things he needs is at times slow going, as patient likes to to address only one thing at each visit. Patient can get overwhelmed with multiple pieces of information being given at once. Discussed possible options for medical follow up. This bid writer offered to assist Jessica making referrals. Jessica asked if this bid writer can confirm with [employer] product patient has, as patient does not have his physical insurance cards. Provided needed information to Jessica, who plans to request with [employer] replacement cards for patient. Jessica also plans to go to patient's home today and will discuss/start trying to get patient established with PCP. No other services requested at this time, but Jessica made aware can call this bid writer if needed. -TORSTEN Zhang
== END 2023-07-11 02:03 | disposition home or self-care (01) ==
PROVIDERS: Emergency Provider Emergency Medicine; Visit Provider Emergency Medicine
DX: R04.0 Epistaxis (principal); I10 Essential (primary) hypertension
CPT/HCPCS: 30901; 80048; 85025; 96374; 99282; J7030; A4216

== ENCOUNTER 2023-07-11 11:07 | Emergency (ER) | payer MEDICAID, SELFPAY ==
[2023-07-11 11:08] VITALS: BP 205/123; PULSE 108; RESP 18; TEMP 37; O2SAT 95; BMI 24.5
--- NOTE | 2023-07-11 12:14 | ED.RN ---
CALLED AND LEFT A MESSAGE FOR WAQAS KATZ REGARDING THIS PT. ASSIST CHIEF MINOO ALSO LEFT A MESSAGE FOR THIS PTS HE[employer] AND FITNESS INSTRUCTOR.
--- NOTE | 2023-07-11 12:16 | EX.ED.DYSGE1 ---
HPI History of Present Illness Chief Complaint: Hypertension [facility] Medical History GERD (gastroesophageal reflux disease) Gastric ulcer due to nonsteroidal anti-inflammatory drug (NSAID) Peptic ulcer disease Home Medications ?Medication ?Instructions ?Recorded ?Last Taken ?Type sodium chloride 0.65 % nasal spray 2 spray intranasal Q4H PRN dry 07/09/23 Unknown Rx aerosol (Saline Mist) nasal passages #44 mL lisinopril 20 1 tab PO DAILY #30 tabs 07/11/23 Unknown Rx mg-hydrochlorothiazide 12.5 mg tablet Allergy/AdvReac Type Severity Reaction Status Date / Time No Known Allergies Allergy Verified 07/10/23 22:17 Social History Smoking Status: Never smoker EXAM Physical Exam Const Vital Signs: 07/11/23 11:07 07/11/23 11:08 07/11/23 12:54 Temperature 98.6 F Temperature Source Temporal Pulse Rate 108 H Respiratory Rate 18 Respiratory Effort Normal Non-Labored Respiratory Pattern Normal Blood Pressure 205/123 H 197/123 H Blood Pressure Mean 150 147 Pulse Ox 95 Oxygen Delivery Method Room Air 07/11/23 13:33 07/11/23 14:18 Temperature Temperature Source Pulse Rate 85 Respiratory Rate Respiratory Effort Respiratory Pattern Blood Pressure 209/121 H 191/127 H Blood Pressure Mean 150 148 Pulse Ox Oxygen Delivery Method MDM MDM MDM Narrative Medical decision making narrative: HISTORY OF PRESENT ILLNESS: 52-year-old male presents with concern for elevated blood pressure. States is been seen multiple times the last few days secondary to nosebleeds. While this problem has resolved he is concerned today because he has not been explained why he has a headache. He states his headache started soon after getting a Rhino Rocket placed into his right nare. He states headache is constant frontal in location similar to prior headaches. He denies any loss of vision, slurred speech, loss of movement or sensation in his extremities. No recent falls or trauma endorsed. Patient denies sudden onset or thunderclap headache, denies maximal intensity within 1 minute, vomiting, neck pain, stiffness, changes in vision, fever, history malignancy, syncope, or seizures associated with headache. REVIEW OF SYSTEMS: Pertinent positives: Headache, elevated blood pressure Pertinent negatives: Numbness, weakness, loss sensation, loss of vision PHYSICAL EXAM: Nursing triage notes reviewed, Vital signs reviewed Constitutional: please see [facility] HENT: MMM Eyes: Pupils equal round and reactive to light, Extraocular muscles intact Neck: No stridor, no JVD, full neck ROM Lungs: Clear to auscultation, No wheezing or rales. No increased work of breathing, no conversational dyspnea, no accessory muscle use, no nasal flaring. No respiratory distress noted Heart: Regular rate and rhythm, No murmurs, No rubs and No gallops, 2+ distal pulses (radial, femoral, posterior tibial) in all extremities Abdomen: Soft, there is no tenderness, rigidity, rebound or guarding, no obvious peritoneal signs, no palpable pulsatile abdominal masses, no auscultated abdominal bruit : No CVAT Extremities: No edema Neuro: Alert and oriented x3, neuro exam at baseline, cranial nerves II through XII are intact. No pain with extraocular muscle movement. There is negative test of skew. 5 of 5 strength in upper and lower extremities in flexion extension. Intact sensation to light touch in upper and lower extremity dermatomes. No truncal or extremity ataxia. No dysdiadochokinesia. Normal gait. 2+ reflexes in upper and lower extremities. No meningeal signs. Negative Babinski. NIH of 0. Skin: No rash or lesions noted MEDICAL DECISION MAKING: Chief Complaint: Elevated blood pressure External records reviewed: Frequent ED visits Factors affecting care: Hypertension, epistaxis Social determinants of health: none History obtained from others: none Consults: none [facility] Narrative: Patient was initially hypertensive otherwise afebrile and nontoxic-appearing. Patient's blood pressure was initially elevated. I considered the following differential diagnosis: ICH, elevated blood pressure, The patient's neurologic exam was nonfocal, no signs of ICH on my initial exam. I suspect his headache is secondary to Rhino Rocket and elevated blood pressure. He was given additional dose of his blood pressure medication here in the emergency department. Patient alerted me that he has a poor social situation has difficulty filling his medications. Social work was consulted and came down to the emergency department and assisted the patient's social needs. He was provided with his prescriptions which were filled here at the hospital. He was provided with a primary care physician as well as additional outpatient resources. ALL IMAGES (IF OBTAINED) HAVE BEEN PERSONALLY REVIEWED AND INTERPRETED BY MYSELF. Labs from 07/11/2023 as follows: CBC without leukocytosis, severe anemia, no thrombocytopenia. BMP without evidence of significant electrolyte abnormalities, no anion gap, no acute kidney injury. The patient and/or family, caregivers express understanding. The patient and/or family, caregivers agrees with the plan. Shared decision making: I will have a discussion with the patient and or visitors regarding risk/benefits of further testing or admission. They will be made aware of of the risk/benefits inherent in this decision they will be given the opportunity to voice understanding. Total critical care time today provided was at least 0 minutes. This excludes separately billable procedures. Critical care time (if documented) is secondary to the patient having high probability of clinically significant/life threatening deterioration in the patient's condition which required my urgent intervention. Impression: 1. Elevated blood pressure 2. Headache Dispo: discharge home This note was generated with [employer] dictation software. It may contain incorrect words, spelling, and punctuation that were not noted in review of the chart prior to signing. Discharge Plan Triage Chief Complaint: Hypertension ED Provider: Marcio Russ Dx/Rx/DC Orders Instructions: ED High Blood Pressure Hypertension, ED Sinus Headache Prescriptions: No Action Saline Mist 0.65 % aerosol,spray 2 spray intranasal Q4H PRN (Reason: dry nasal passages) Qty: 44 0RF Rx Instructions: while awake lisinopril-hydrochlorothiazide 20-12.5 mg tablet 1 tab PO DAILY Qty: 30 0RF Primary Care Provider: Care Physician,No Primary Referrals: Ady Panda MD [Med Staff - Active Staff] - Activity Restrictions/Additional Instructions: Thank you for trusting us with your care today! Please take Tylenol (2 pills, 650 mg), ibuprofen (2 pills, 400 mg) every 6 hours as needed for pain and fever control. Please take prescribed and provided blood pressure medicine daily. Please return to the emergency department in 3 days to have your nasal packing removed. Please follow with your primary care physician for further outpatient evaluation and management. Print Language: Norwegian Disposition Disposition: Home, Self Care Discharge Date/Time: 07/11/23 14:23
[2023-07-11] MEDS: hydroCHLOROthiazide 12.5mg 12.5 MG PO (12:51)
[2023-07-11] MEDS: Lisinopril 40 MG Tablet PO (12:52)
[2023-07-11 12:54] VITALS: BP 197/123
--- NOTE | 2023-07-11 13:00 | CM.ED ---
Social work Consult received by gregory Bridges RN regarding patient frequents emergency visits over the last week, including for similar issues and apparent lack of follow-through. Chart reviewed. This leader writer familiar with patient from prior visits. Noted past history of concerns related to social issues surrounding food and access to basic needs. Noted that patient has been to [facility] emergency department on: 07/08/2023, 07/09/2023 x 2, 07/10/2023 and today 07/11/2023. This makes 5 visits in 3 days. Visits related to nosebleeds, shortness of breath and now hypertension. Patient was reportedly provided a prescription for an antihypertensive on 07/10/2023, but this was never picked up due to patient being unable to find the pharmacy. Per battery recharger the patient does reportedly have a wrapper caser and has been walking to other people's homes to have 911 called. Per polisher implant the EMS had a conversation with the patient's landlord who reports the patient's wrapper caser got patient a phone. This leader writer met with patient in triage room #2, introducing to self and social work role. - Patient reports to have a headache and not understand why he has a headache, stating no one told me. Updated ED physician to patient's complaints of headache and voicing that does not understand why he has a headache.? Dr. Buckley to address. - This leader writer addressed concerns about frequent visits this week, and patient's ability to access care. Patient commented that people are getting mad at patient for coming to the ED. - This leader writer did collaborate and coordinate with charge nurse to have patient's prescriptions filled at the [facility] retail pharmacy so patient could actually leave the hospital with prescriptions in hand. Updated patient that he will have prescriptions in hand at discharge from the ED. - Addressed with patient need for follow-up with primary care physician, as having community support can help address any type of chronic issues the patient may be having. Patient reports at one point he was supposed to have gone to [facility] but really has not seen anybody in years. Addressed whether patient would like a referral back to the [facility] or to another physician. Educated to follow starts being clinic. Patient reports that really does not care. - This leader writer addressed whether patient does indeed have a wrapper caser. Patient reports to see Jessica Roca at [facility]. Explored with patient whether patient would be willing to sign a release of information so this leader writer in [place] could communicate with each other regarding patient's care needs. Patient agreeable. Release of information signed. - Explored with patient whether patient has a phone, which patient reports he does not. Addressed whether the wrapper caser has secured patient a phone, and patient reports this is a work in progress. - Explored whether patient has access to basic needs such as food. Patient reports to have food in the home and that his wrapper caser has been assisting with this through [employer]. - Patient reports wrapper caser assists with transportation. - Explored what patient has been doing for income. Patient reports has been living on money left to patient by the patient's mother, who is now . Patient reports doesn't really believe there is money, as has not seen it, but is reportedly in a checking account. Explored as to who writes patient's bills and patent repots has never seen a bill but somehow the landlord gets paid. - Explored whether someone might be patient's payee or guardian, and patient denies. Call to [facility] and left voice message to call this leader writer back, so as to fax LIZZY, so that this leader writer and wrapper caser can communicate regarding patient's ongoing care needs. Patient cooperative with social work professor, agreeable to have social work professor communicate with wrapper caser about ongoing needs. Does not appear to be engaged in his own problem solving, rather what others may be able to help patient with, and indicates that doesn't really know how his bills are paid or how patient has been getting food. Patient does appear disheveled, with limited bathing/grooming as evidenced by smell of strong body odor upon entering the room. Patient's affect blunted. Fair eye contact. Plan: If patient goes home will have prescriptions in place. This leader writer following up with wrapper caser at [facility] for ongoing needs/access to basic needs and medical follow up. Plan to discuss whether the wrapper caser does indeed help with transportation and whether patient has a phone, so then to help problem solve the PCP and transportation to medical appointments. -FLO Zhang *This note was generated with [employer] software. It may contain incorrect words, spelling, and punctuation that were not noted in review of the chart prior to signing*
[2023-07-11 13:33] VITALS: BP 209/121
[2023-07-11 14:18] VITALS: BP 191/127; PULSE 85
--- NOTE | 2023-07-11 14:22 | ED.RN ---
PATIENT REFUSING TO LEAVE. SECURITY AT BEDSIDE.
--- NOTE | 2023-07-11 18:51 | CM.ED ---
Social Work Noted that patient was discharged from the ED today. Received call back from [facility] and fax to patient's oil field caser, Jessica Lao, is [phone]. Faxed release of information as well as request to call this science writer to discuss aftercare hospital needs. Plan: SW to follow up with [facility] oil field caser. -TORSTEN Zhang
--- NOTE | 2023-07-13 12:34 | CM.ED ---
Social Work Spoke with patient's lining caser at [facility] ([phone], extension [phone]; cell [phone]). Updated Jessica to patient's ED visits between 6..24 and 6.06.28. Discussed need for follow up with primary care services. This tag writer verified patient's home situation and dynamics. -Housing: Patient has housing, and rent is deducted automatically from checking account. Utilities are included in the rent. -Finances: Patient is living off of inheritance from mother's estate and gets a monthly stipend put into the checking account. Patient does not write checks and does not have a debit card. cost accounting manager takes patient to the bank to get high, and patient uses high to buy what is needed. -Insurance: Patient does have medicaid through [employer], and food assistance. -Food: Patient has food card and lining caser takes patient once a month to buy groceries for the month -Phone: Patient's previous lining caser did get patient a [employer] phone, but it is thought patient threw the package out. Patient does not currently have a phone. Jessica is working to get patient to agree to a landline. -Transportation: Jessica provides transportation. -Support: Jessica is patient's primary support and has a standing appointment with patient every Sunday at 1130. -Mental Health: Patient was attempted to be engaged with counseling at [facility] but patient has not wanted this.? Patient is thought to possibly have a diagnosis of somewhere on autism spectrum. Patient has no formal diagnosis has been made. Jessiac reports getting patient the things he needs is at times slow going, as patient likes to to address only one thing at each visit. Patient can get overwhelmed with multiple pieces of information being given at once. Discussed possible options for medical follow up. This tag writer offered to assist Jessica making referrals. Jessica asked if this tag writer can confirm with [employer] product patient has, as patient does not have his physical insurance cards. Provided needed information to Jessica, who plans to request with [employer] replacement cards for patient. Jessica also plans to go to patient's home today and will discuss/start trying to get patient established with PCP. No other services requested at this time, but Jessica made aware can call this tag writer if needed. -TORSTEN Zhang
== END 2023-07-11 14:23 | disposition home or self-care (01) ==
PROVIDERS: Emergency Provider Emergency Medicine; Visit Provider Emergency Medicine
DX: R51.9 Headache, unspecified (principal); R03.0 Elevated blood-pressure reading, without diagnosis of hypertension
CPT/HCPCS: 99283

== ENCOUNTER → 2023-08-07 | Outpatient (CLI) | payer MEDICAID, SELFPAY ==
[2023-08-07 13:51] LABS: Absolute Lymphocyte Count 1.51 X10^3/uL (0.83-4.51); Basophil# 0.06 X10^3/uL; Basophil% 0.6 % (0-1); Eosinophil# 0.04 X10^3/uL; Eosinophils% 0.4 % (0-5); Hematocrit 47.5 % (40-54); Hemoglobin 15.8 g/dL (13.0-16.5); Lymphocyte # 1.51 X10^3/ul (0.83-4.51); Lymphocyte % 14.9 % (19-41); Mean Corp Hgb Conc 33.3 g/dL (32-36); Mean Corpuscular Hgb 31.3 pg (27.0-32.0); Mean Corpuscular Volume 94.1 fL (80-94); Mean Platelet Vol. 10.3 fl (6.2-12.0); Monocyte# 1.48 X10^3/uL; Monocyte% 14.6 % (0-10); NRBC Flagged by Analyzer 0 % (0-5); Neutrophil # 7.02 X10^3/uL (2.7-7.7); Neutrophil % 69.2 % (47-70); Platelet Count 249 K/mm3 (150-450); RBC Distribution Width CV 12.9 % (11.6-14.6); RBC Distribution Width SD 44.5 fl (35.1-43.9); Red Blood Count 5.05 M/mm3 (4.6-6.2); White Blood Count 10.1 K/mm3 (4.4-11.0)
[2023-08-07 14:27] LABS: ALB/GLOB Ratio 0.8 RATIO (0.9-2.4); AST(SGOT) 17 U/L (15-37); Alanine Aminotransfer ALT/SGPT 41 U/L (16-61); Albumin, Serum 3.8 g/dL (3.2-5.0); Alkaline Phosphatase 83 U/L (45-117); Anion Gap 15 (5-15); BUN 31 mg/dL (7-18); BUN/Creat Ratio 11.7 RATIO (10-20); Calcium,Total 11.9 mg/dL (8.5-10.1); Chloride 89 mmol/L (98-107); Cholesterol 146 mg/dL (200); Creatinine, Serum 2.65 mg/dL (0.70-1.30); EST Glomerular Filtration Rate 27 mL/min (>60); Est Glom Filt Rate - Afr Amer 33 mL/min (>60); Globulin 4.6 g/dL (2.2-4.2); Glucose 117 mg/dL (74-106); High Density Lipoprotein 38 mg/dL; Potassium 4.5 mmol/L (3.5-5.1); Protein, Total 8.4 g/dL (6.4-8.2); Sodium Level 130 mmol/L (136-145); Triglycerides 128 mg/dL; Very Low Density Lipoprotein 26 mg/dL (5-40)
== END | disposition home or self-care (01) ==
LOC: LAB 13:14
PROVIDERS: PCP Family Medicine; Referring Provider Family Medicine; Visit Provider Family Medicine
DX: R11.0 Nausea (principal); I10 Essential (primary) hypertension
CPT/HCPCS: 36415; 80053; 80061; 84443; 85025

== ENCOUNTER → 2023-08-10 | Outpatient (CLI) | payer MEDICAID, SELFPAY ==
[2023-08-10 11:42] LABS: Amphetamine Urine VISTA NEGATIVE (<1000 ng/mL); Barbiturate Urine VISTA NEGATIVE (< 200 ng/mL); Benzodiazepine Urine VISTA NEGATIVE (< 200 ng/mL); Cocaine Urine VISTA NEGATIVE (< 300 ng/mL); Ecstacy Urine VISTA NEGATIVE (< 500 ng/mL); Methadone Urine VISTA NEGATIVE (< 300 ng/mL); PCP Urine VISTA NEGATIVE (< 25 ng/mL); THC Urine VISTA NEGATIVE (< 50 ng/mL); Vista UDS pH Range 7
[2023-08-10 11:49] LABS: Microalbumin,Random Urine 40.7 mg/L (NO RANGE EST.)
== END | disposition home or self-care (01) ==
LOC: LAB.FUTURE 11:04
PROVIDERS: PCP Family Medicine; Referring Provider Family Medicine; Visit Provider Family Medicine
DX: R11.0 Nausea (principal); I10 Essential (primary) hypertension
CPT/HCPCS: 80307; 82043

== ENCOUNTER 2023-08-17 11:43 | Inpatient (IN) | payer MEDICAID, SELFPAY ==
[2023-08-17] VITALS (7 sets, daily range): BP systolic 106–123; BP diastolic 74–81; PULSE 92–99; RESP 14–18; TEMP 36.3–36.8; O2SAT 97–100; BMI 23.8; BMI 22.7
--- NOTE | 2023-08-17 11:55 | CT_ITS ---
STUDY: CT BRAIN WITHOUT CONTRAST REASON FOR EXAM: Male, 52 years old. Trauma RADIATION DOSAGE (If Supplied By Facility): CTDIvol = ( 44.99 ) mGy, DLP = ( 914.22 ) mGycm TECHNIQUE: Transaxial CT imaging of the brain was performed without administration of intravenous contrast material. Individualized dose optimization techniques were used for this CT. COMPARISON: Comparison is made with prior study dated February 22, 2021. FINDINGS: Normal soft tissue structures. Normal calvarium. There is mild cerebral atrophy with widening of the extra-axial spaces and ventricular dilatation. Normal white matter tracts of the cerebral hemispheres. Normal basal ganglia and thalami. Normal brainstem. Normal cerebellum. Stable prominence of the cisterna magna. This is a normal variant. There is no intracranial hemorrhage. There are no findings of an acute ischemic infarction. Normal visualized paranasal sinuses. CT/Brain/Head without Contrast IMPRESSION: Chronic involutional changes of the brain. Electronically Signed: Cedric Castro MD at 13:13 EDT ,
--- NOTE | 2023-08-17 11:56 | ED.VIS.FALL ---
HPI HPI - Fall History of Present Illness Chief Complaint: Fall Informant: patient Occured/Mechanism Occurred: Today Mechanism/Context: Yes same level fall and Yes slip Pain/Injury Location: Right frontal Pain Location: head Quality of Pain: Aching Worsened by: Nothing Relieved by: Nothing Associated Symptoms Associated Symptoms: Negative for Parasthesias, Weakness, Loss of function, Inability to ambulate, Loss of consciousness or Amnesia Narrative Narrative: Patient presents after a fall that occurred today. Patient states he slipped and fell forward. Patient states he hit his head. Patient denies any loss of consciousness. Patient describes his pain as aching. Patient states it is mainly over the right frontal area. Patient denies any paresthesias or weakness. Patient states he was able to ambulate after the fall. Patient admits to some nausea but denies any vomiting. Patient admits to some blurry vision but denies any double vision or scotoma. Patient is unsure of his last tetanus. [facility] Medical History (Updated 08/17/23 @ 15:[address] Bill Castellano, DO) Frequent falls GERD (gastroesophageal reflux disease) Gastric ulcer due to nonsteroidal anti-inflammatory drug (NSAID) Peptic ulcer disease Home Medications ?Medication ?Instructions ?Recorded ?Last Taken ?Type acetaminophen 500 mg tablet 500 mg PO BID 08/17/23 Unknown History ibuprofen 600 mg tablet 600 mg PO Q8H PRN PRN fever 08/17/23 Unknown History lisinopril 20 1 tab PO DAILY 08/17/23 08/17/23 History mg-hydrochlorothiazide 25 mg tablet omeprazole 20 mg capsule,delayed 20 mg PO DAILY 08/17/23 08/16/23 History release Allergy/AdvReac Type Severity Reaction Status Date / Time No Known Allergies Allergy Verified 08/17/23 11:50 Social History Smoking Status: Never smoker EXAM Physical Exam Const Vital Signs: 08/17/23 11:44 08/17/23 11:47 08/17/23 13:43 Temperature 98.3 F Temperature Source Oral Pulse Rate 94 92 Respiratory Rate 14 14 Respiratory Effort Normal Non-Labored Respiratory Depth Normal Respiratory Pattern Normal Blood Pressure 109/74 114/76 Blood Pressure Mean 85 88 Pulse Ox 100 100 99 Oxygen Delivery Method Room Air Room Air Room Air 08/17/23 14:44 Temperature Temperature Source Pulse Rate 99 Respiratory Rate 18 Respiratory Effort Respiratory Depth Respiratory Pattern Blood Pressure 120/78 Blood Pressure Mean 92 Pulse Ox 99 Oxygen Delivery Method Room Air MDM MDM MDM Narrative Medical decision making narrative: Differential diagnosis includes intracranial bleeding, cardiac dysrhythmia, cardiac ischemia, electrolyte abnormality, anemia, urinary tract infection, and scalp laceration. CT scan of the brain will be obtained to assess for intracranial bleeding. EKG will be obtained to assess for cardiac dysrhythmia and cardiac ischemia. CBC will be obtained to assess for leukocytosis and anemia. Basic metabolic profile will be obtained to assess for electrolyte abnormality and renal function. Urinalysis will be obtained to assess for urinary tract infection and hematuria. Lab Data Attestation: I reviewed the patient's lab results. Lab results narrative: CBC was reviewed and was within normal limits. Basic metabolic profile was reviewed. Sodium was low at 119 and chloride was low at 78. Anion gap was elevated at 18. These are new compared to previous results. CO2 was normal at 23. BUN was slightly elevated at 20 and creatinine was slightly elevated at 1.72. These are improved from previous results. Urinalysis was reviewed. Urine ketones were 150. There is no evidence of urinary tract infection or hematuria. Labs: Laboratory Results - last 24 hr 08/17/23 08/17/23 08/17/23 12:10 12:10 12:35 WBC Cancelled 8.4 Corrected WBC Cancelled RBC Cancelled 4.20 L Hgb Cancelled 13.3 Hct Cancelled 37.2 L MCV Cancelled 88.6 MCH Cancelled 31.7 MCHC Cancelled 35.8 RDW Std Deviation Cancelled 40.8 RDW Coeff of Janet Cancelled 12.6 Plt Count Cancelled 190 MPV Cancelled 9.0 Immature Gran % (Auto) Cancelled 0.400 Neut % (Auto) Cancelled 73.4 H Lymph % (Auto) Cancelled 10.5 L [place] % (Auto) Cancelled 15.3 H Eos % (Auto) Cancelled 0.2 Baso % (Auto) Cancelled 0.2 Absolute Neuts (auto) Cancelled 6.1 Absolute Lymphs (auto) Cancelled 0.88 Total Counted Cancelled Neutrophils % (Manual) Cancelled Band Neutrophils % Cancelled Lymphocytes % (Manual) Cancelled Monocytes % (Manual) Cancelled Eosinophils % (Manual) Cancelled Basophils % (Manual) Cancelled Metamyelocytes % Cancelled Myelocytes % Cancelled Promyelocytes % Cancelled Blast Cells % Cancelled Plasma Cell % (Manual) Cancelled Other Cells % Cancelled Nucleated RBC % Cancelled 0 Nucleated RBCs/100 WBC Cancelled Differential Comment Cancelled Diff Path Review Cancelled Hypersegmented Neuts Cancelled Atypical Lymphocytes Cancelled Reactive Lymphocytes Cancelled Smudge Cells Cancelled Toxic Granulation Cancelled Toxic Vacuolation Cancelled Dohle Bodies Cancelled Soto Rods Cancelled Platelet Estimate Cancelled Plt Morphology Comment Cancelled RBC Morphology Cancelled Cancelled Polychromasia Cancelled Hypochromasia Cancelled Basophilic Stippling Cancelled Anisocytosis Cancelled Microcytosis Cancelled Macrocytosis Cancelled Spherocytes Cancelled Sickle Cells Cancelled Target Cells Cancelled Tear Drop Cells Cancelled Ovalocytes Cancelled Stomatocytes Cancelled Rao-Arlee Bodies Cancelled [place] Cells Cancelled Bite Cells Cancelled Crenated Cell Cancelled Acanthocytes (Spur) Cancelled Rouleaux Cancelled Schistocytes Cancelled Sodium 119 L* Potassium 4.5 Chloride 78 L Carbon Dioxide 23.0 Anion Gap 18 H BUN 20 H Creatinine 1.72 H Estim Creat Clear Calc 56.13 Est GFR (MDRD) Af Amer 54 L Est GFR (MDRD) Non-Af 44 L BUN/Creatinine Ratio 11.6 Glucose 116 H Calcium 9.5 Troponin I High Sens 4 Urine Color Urine Clarity Urine pH Ur Specific [place] Urine Protein Urine Glucose (UA) Urine Ketones Urine Occult Blood Urine Nitrite Urine Bilirubin Urine Urobilinogen Ur Leukocyte Esterase Urine RBC Urine WBC Ur Squamous Epith Cells Urine Bacteria Urine Mucus 08/17/23 12:59 WBC Corrected WBC RBC Hgb Hct MCV MCH MCHC RDW Std Deviation RDW Coeff of Janet Plt Count MPV Immature Gran % (Auto) Neut % (Auto) Lymph % (Auto) [place] % (Auto) Eos % (Auto) Baso % (Auto) Absolute Neuts (auto) Absolute Lymphs (auto) Total Counted Neutrophils % (Manual) Band Neutrophils % Lymphocytes % (Manual) Monocytes % (Manual) Eosinophils % (Manual) Basophils % (Manual) Metamyelocytes % Myelocytes % Promyelocytes % Blast Cells % Plasma Cell % (Manual) Other Cells % Nucleated RBC % Nucleated RBCs/100 WBC Differential Comment Diff Path Review Hypersegmented Neuts Atypical Lymphocytes Reactive Lymphocytes Smudge Cells Toxic Granulation Toxic Vacuolation Dohle Bodies Soto Rods Platelet Estimate Plt Morphology Comment RBC Morphology Polychromasia Hypochromasia Basophilic Stippling Anisocytosis Microcytosis Macrocytosis Spherocytes Sickle Cells Target Cells Tear Drop Cells Ovalocytes Stomatocytes Rao-Arlee Bodies [place] Cells Bite Cells Crenated Cell Acanthocytes (Spur) Rouleaux Schistocytes Sodium Potassium Chloride Carbon Dioxide Anion Gap BUN Creatinine Estim Creat Clear Calc Est GFR (MDRD) Af Amer Est GFR (MDRD) Non-Af BUN/Creatinine Ratio Glucose Calcium Troponin I High Sens Urine Color Yellow Urine Clarity Sl. Cloudy Urine pH 6.0 Ur Specific [place] 1.020 Urine Protein 30 H Urine Glucose (UA) Normal Urine Ketones 150 A* Urine Occult Blood 150 H Urine Nitrite Negative Urine Bilirubin Negative Urine Urobilinogen 1 H Ur Leukocyte Esterase Negative Urine RBC 5-10 SEEN Urine WBC 0-5 SEEN Ur Squamous Epith Cells 0 SEEN Urine Bacteria 1+ Urine Mucus 0 SEEN Radiography Diagnostic Testing: Clinical Impression(s) from Imaging Studies Brain CT 08/17/23 11:55 IMPRESSION: Chronic involutional changes of the brain. Electronically Signed: Cedric Castro MD at 13:13 EDT , CT scan of the brain was obtained. There is no acute intracranial abnormality. There are chronic involutional changes noted. This was interpreted by the radiologist and was also independently reviewed by myself. EKG Initial EKG: Attestation: I personally reviewed and interpreted this EKG as follows: Interpretation: Sinus Rhythm (95) and No Acute Injury Pattern Comments: EKG was obtained. On my independent interpretation, it showed a normal sinus rhythm with a rate of 95. [place] interval, QRS interval, and QTc intervals were all normal. [place] was normal. There are no acute ST or T wave changes. Prior EKG tracings: available for review Prior: Unchanged (02/03/2023) Management Discussion w/another healthcare provider: Hospitalist Treatment and Re-Evaluation Narrative: Patient was given IV fluids. Patient was given a tetanus booster. The forehead laceration was cleaned and irrigated with copious months of normal saline. The wound was anesthetized 1% plain lidocaine locally. The wound was explored. There is no foreign body noted. There is mild bleeding. The wound was closed with 7 simple interrupted #4-0 Ethilon sutures under sterile technique. Patient tolerated procedure well. There is also a 1 cm curvilinear superficial laceration inferior to the larger laceration. This was cleaned and closed with Dermabond skin adhesive. Patient tolerated procedure well. Patient was given a repeat bolus of normal saline. Patient was given a dose of Zofran. Case was discussed with the hospitalist. He will admit the patient to his service. Patient understood and was agreeable with the plan. All questions were answered. Procedures Lacerations Right forehead: Length: 5 cm Depth: Sub Q Shape: Linear Prep: Sterile Conditions and Chlorhexadine Laceration repair: Irrigated, Lidocaine, Local, Skin sutures and Wound explored Irrigated (ml): 60 Number of Sutures/Karan: 7 Suture Information: Ethilon, Simple and 4-0 Right supraorbital area: Length: 1 cm Depth: Skin Shape: Linear Prep: Sterile Conditions and Chlorhexadine Laceration repair: Dermabond and Wound explored Discharge Plan Dx/Rx/DC Orders Clinical Impression: Acute hyponatremia, General weakness, Fall, Forehead laceration Disposition Disposition: Acute Care Hospital [facility]
[2023-08-17] MEDS: Lidocaine 1% (20 ml mdv) 20 ML Vial INFILT (12:05)
[2023-08-17] MEDS: 0.9% Normal Saline (1000mL) 1,000 ML 1000 ML IV ×2 (12:06→15:17)
[2023-08-17] MEDS: Lidocaine/Epi/Tetracaine 50 ML 1 APPLIC TOPICAL (12:06)
[2023-08-17 12:44] LABS: Absolute Lymphocyte Count 0.88 X10^3/uL (0.83-4.51); Absolute Neutrophil Count 6.1 X10^3/uL (2.0-7.7); Basophil# 0.02 X10^3/uL; Basophil% 0.2 % (0-1); Eosinophil# 0.02 X10^3/uL; Eosinophils% 0.2 % (0-5); Hematocrit 37.2 % (40-54); Hemoglobin 13.3 g/dL (13.0-16.5); Lymphocyte # 0.88 X10^3/ul (0.83-4.51); Lymphocyte % 10.5 % (19-41); Mean Corp Hgb Conc 35.8 g/dL (32-36); Mean Corpuscular Hgb 31.7 pg (27.0-32.0); Mean Corpuscular Volume 88.6 fL (80-94); Monocyte# 1.28 X10^3/uL; Monocyte% 15.3 % (0-10); NRBC Flagged by Analyzer 0 % (0-5); Neutrophil # 6.14 X10^3/uL (2.7-7.7); Neutrophil % 73.4 % (47-70); Platelet Count 190 K/mm3 (150-450); RBC Distribution Width CV 12.6 % (11.6-14.6); RBC Distribution Width SD 40.8 fl (35.1-43.9); White Blood Count 8.4 K/mm3 (4.4-11.0)
[2023-08-17] MEDS: Diphth,Pertuss(Acell),Tet Vac 0.5 ML Vial IM (12:55)
[2023-08-17 13:02] LABS: Anion Gap 18 (5-15); BUN 20 mg/dL (7-18); BUN/Creat Ratio 11.6 RATIO (10-20); Calcium,Total 9.5 mg/dL (8.5-10.1); Chloride 78 mmol/L (98-107); Creatinine, Serum 1.72 mg/dL (0.70-1.30); EST Glomerular Filtration Rate 44 mL/min (>60); Est Glom Filt Rate - Afr Amer 54 mL/min (>60); Estimated Creatinine Clearance 56.13 ml/min; Glucose 116 mg/dL (74-106); Potassium 4.5 mmol/L (3.5-5.1); Sodium Level 119 mmol/L (136-145)
[2023-08-17 13:04] LABS: Mucous, Urine 0 SEEN /hpf (<or=2+); Squamous Epithelial Cells - UA 0 SEEN /hpf (0-5)
[2023-08-17 13:10] LABS: Color, Urine Yellow (Yellow); Glucose, Dipstick Normal (Normal); Leukocyte Esterase-Dipstick Negative /ul (Negative); Nitrite-Dipstick Negative (Negative); Occult Blood-Urine 150 /ul (Negative); Protein-Dipstick 30 mg/dl (Negative); Urine Bilirubin Dipstick Negative (Negative); Urine Clarity Sl. Cloudy (Clear); Urine Urobilinogen 1 mg/dl (Normal)
--- NOTE | 2023-08-17 13:16 | EKG12_ITS ---
Test Reason : FALL Blood Pressure : / mmHG Vent. Rate : 095 BPM Atrial Rate : 095 BPM P-R Int : 174 ms QRS Dur : 092 ms QT Int : 340 ms P-R-T Axes : 049 010 022 degrees QTc Int : 427 ms Normal sinus rhythm Normal ECG Confirmed by AMELIA CHIU, SAMANTHA ([id number]), graphics editor ARCHANA AVENDANO ([id number]) on 08/22/2023 10:47:21 A M Referred By: Confirmed By:FERN CISNEROS MD
[2023-08-17 13:30] LABS: Ketone-Dipstick 150 mg/dl (Negative)
[2023-08-17 13:34] LABS: Red Blood Cells-Urine 5-10 SEEN /hpf (0-5); White Blood Cells 0-5 SEEN /hpf (0-5)
[2023-08-17 13:36] LABS: Bacteria 1+ /hpf (None Seen)
[2023-08-17 14:04] LABS: Troponin-I HS 4 pg/mL (3.0-78.0)
[2023-08-17] MEDS: Ondansetron 4 MG/2 ML Vial IV ×2 (15:17→22:03)
--- NOTE | 2023-08-17 15:20 | HP.PCM.HOS_ITS ---
HPI - General General Date of Admission: 08/17/23 Date of Service: 08/17/23 Chief Complaint: Fall, unclear the mechanism. Hyponatremia HPI Narrative ESTELLA GONZALEZ, is a 52 M came to ER after he fell down and has laceration on the right side of the forehead. Patient stated that he tried to open the front door for the visitor but he might have tripped his right foot and fell forward and hit his right foot. He does not remember exactly. Patient is states his right foot is stiff for last 1 year and is some numbness/tingling on medial aspect of right foot. Denies any limping or particular weakness on right knee or hip joint. No LOC. NAD, right forehead was sutured. On lab, patient's sodium was found 119. Previous sodium was 130 on August 07, 2023. Patient creatinine is also high. He said he drinks a lot of water. Social history denies chronic alcohol use, substance use or smoking. [facility] Medical History Hypertension Frequent falls GERD (gastroesophageal reflux disease) Gastric ulcer due to nonsteroidal anti-inflammatory drug (NSAID) Peptic ulcer disease Home Medications ?Medication ?Instructions ?Recorded ?Last Taken ?Type acetaminophen 500 mg tablet 500 mg PO BID 08/17/23 Unknown History ibuprofen 600 mg tablet 600 mg PO Q8H PRN PRN fever 08/17/23 Unknown History lisinopril 20 1 tab PO DAILY 08/17/23 08/17/23 History mg-hydrochlorothiazide 25 mg tablet omeprazole 20 mg capsule,delayed 20 mg PO DAILY 08/17/23 08/16/23 History release Allergy/AdvReac Type Severity Reaction Status Date / Time No Known Allergies Allergy Verified 08/17/23 11:50 Social History (Updated 08/17/23 @ 16:53 by Hannah Buckner) household members: none housing: apartment Smoking Status: Never smoker alcohol intake: never substance use type: does not use ROS ROS Narrative Constitutional: Denies chronic fatigue and weakness. No fever. HEENT: Reports systems reviewed and no addt'l complaints, except as documented Respiratory/Chest: No acute shortness of breath or respiratory distress or wheezing. CVS: No chest pain pressure or tightness. Gastrointestinal: Mild nausea. Denies coffee ground emesis, hematemesis or vomiting Genitourinary: Denies burning urination or new urinary tract symptoms Musculoskeletal: Fall. Rest as described in HPI. Denies acute joint pain or limited range of motion. No acute injury Neurologic: Denies seizure-like symptoms. No LOC. skin: No ulcer. No rash Endocrinology: Reports systems reviewed and no addt'l complaints, except as documented Hematologic/Lymphatic: Reports systems reviewed and no addt'l complaints, except as documented Rest 14 ROS are negative except as mentioned in HPI Vital Signs Vital Signs Vital Signs: 08/17/23 11:44 08/17/23 11:47 08/17/23 13:43 Temperature 98.3 F Temperature Source Oral Pulse Rate 94 92 Respiratory Rate 14 14 Respiratory Effort Normal Non-Labored Respiratory Depth Normal Respiratory Pattern Normal Blood Pressure 109/74 114/76 Blood Pressure Mean 85 88 Pulse Ox 100 100 99 Oxygen Delivery Method Room Air Room Air Room Air 08/17/23 14:44 Temperature Temperature Source Pulse Rate 99 Respiratory Rate 18 Respiratory Effort Respiratory Depth Respiratory Pattern Blood Pressure 120/78 Blood Pressure Mean 92 Pulse Ox 99 Oxygen Delivery Method Room Air Weight Weight: 180 lb 12.465 oz Body Mass Index (BMI) 23.8 Physical Exam Narrative General: Alert, Oriented x3, Cooperative HEENT: Sutured wound on right forehead. Atraumatic, PERRLA, EOMI, Normocephalic Oral: Oral mucosa dry. No Gingival or Mucosal Lesions/ Ulcerations Neck: Supple, No JVD, Negative Carotid Bruits Chest wall/Lungs: Air entry diminished in bilateral lung bases. No crepitation/rhonchi Cardiovascular: Regular rate, Regular Rhythm, Normal S1, Normal S2, No M/G/R Abdomen: Bowel Sounds Present, Soft, Non Tender, Non-Distended : No dysuria. No renal angle tenderness. No suprapubic tenderness. Extremities: No edema, Capillary Refill Less than 3 Seconds Skin: No rashes, No breakdown Musculoskeletal: No Tenderness to Palpation of Joints or Extremities. Muscle strength 5/5 at major joints. Neurological: Cranial nerves II-XII grossly intact, DTR 2+/4. No acute focal neurological deficit. Psych/Mental Status: Normal Affect, Appropriate. Results Lab / Micro Data 08/17/23 12:35 08/17/23 16:05 Labs: Laboratory Results - last 24 hr 08/17/23 12:10: WBC Cancelled, Corrected WBC Cancelled, RBC Cancelled, Hgb Cancelled, Hct Cancelled, MCV Cancelled, MCH Cancelled, MCHC Cancelled, RDW Std Deviation Cancelled, RDW Coeff of Janet Cancelled, Plt Count Cancelled, MPV Cancelled, Immature Gran % (Auto) Cancelled, Neut % (Auto) Cancelled, Lymph % (Auto) Cancelled, [place] % (Auto) Cancelled, Eos % (Auto) Cancelled, Baso % (Auto) Cancelled, Absolute Neuts (auto) Cancelled, Absolute Lymphs (auto) Cancelled, Total Counted Cancelled, Neutrophils % (Manual) Cancelled, Band Neutrophils % Cancelled, Lymphocytes % (Manual) Cancelled, Monocytes % (Manual) Cancelled, Eosinophils % (Manual) Cancelled, Basophils % (Manual) Cancelled, Metamyelocytes % Cancelled, Myelocytes % Cancelled, Promyelocytes % Cancelled, Blast Cells % Cancelled, Plasma Cell % (Manual) Cancelled, Other Cells % Cancelled, Nucleated RBC % Cancelled, Nucleated RBCs/100 WBC Cancelled, Differential Comment Cancelled, Diff Path Review Cancelled, Hypersegmented Neuts Cancelled, Atypical Lymphocytes Cancelled, Reactive Lymphocytes Cancelled, Smudge Cells Cancelled, Toxic Granulation Cancelled, Toxic Vacuolation Cancelled, Dohle Bodies Cancelled, Soto Rods Cancelled, Platelet Estimate Cancelled, Plt Morphology Comment Cancelled, RBC Morphology Cancelled 08/17/23 12:10: RBC Morphology Cancelled, Polychromasia Cancelled, Hypochromasia Cancelled, Basophilic Stippling Cancelled, Anisocytosis Cancelled, Microcytosis Cancelled, Macrocytosis Cancelled, Spherocytes Cancelled, Sickle Cells Cancelled, Target Cells Cancelled, Tear Drop Cells Cancelled, Ovalocytes Cancelled, Stomatocytes Cancelled, Rao-[place] Bodies Cancelled, [place] Cells Cancelled, Bite Cells Cancelled, Crenated Cell Cancelled, Acanthocytes (Spur) Cancelled, Rouleaux Cancelled, Schistocytes Cancelled, Sodium 119 L*, Potassium 4.5, Chloride 78 L, Carbon Dioxide 23.0, Anion Gap 18 H, BUN 20 H, Creatinine 1.72 H, Estim Creat Clear Calc 56.13, Est GFR (MDRD) Af Amer 54 L, Est GFR (MDRD) Non-Af 44 L, BUN/Creatinine Ratio 11.6, Glucose 116 H, Calcium 9.5, Troponin I High Sens 4 08/17/23 12:35: WBC 8.4, RBC 4.20 L, Hgb 13.3, Hct 37.2 L, MCV 88.6, MCH 31.7, MCHC 35.8, RDW Std Deviation 40.8, RDW Coeff of Janet 12.6, Plt Count 190, MPV 9.0, Immature Gran % (Auto) 0.400, Neut % (Auto) 73.4 H, Lymph % (Auto) 10.5 L, [place] % (Auto) 15.3 H, Eos % (Auto) 0.2, Baso % (Auto) 0.2, Absolute Neuts (auto) 6.1, Absolute Lymphs (auto) 0.88, Nucleated RBC % 0 08/17/23 12:59: Urine Color Yellow, Urine Clarity Sl. Cloudy, Urine pH 6.0, Ur Specific [place] 1.020, Urine Protein 30 H, Urine Glucose (UA) Normal, Urine Ketones 150 A*, Urine Occult Blood 150 H, Urine Nitrite Negative, Urine Bilirubin Negative, Urine Urobilinogen 1 H, Ur Leukocyte Esterase Negative, Urine RBC 5-10 SEEN, Urine WBC 0-5 SEEN, Ur Squamous Epith Cells 0 SEEN, Urine Bacteria 1+, Urine Mucus 0 SEEN Imaging Radiology Impression Brain CT 08/17/23 11:55 IMPRESSION: Chronic involutional changes of the brain. Electronically Signed: Cedric Castro MD at 13:13 EDT , Assessment & Plan Assessment/Plan (1) Fall: (2) Acute hyponatremia: PLAN: Plan This is 52-year-old gentleman came to ED after fall and found to have severe hyponatremia. 1. Severe hypotonic hypovolemic hyponatremia, possible, gradual onset subacute: Patient sodium was 119. Previous sodium 130 on August 06, 1993. It was 130 upon 07/11/2023. The patient is being admitted in PCU. He was given 1 L of normal saline bolus and patient had partial second liter bolus which was stopped. Repeat sodium is pending. Further management as per the repeat sodium. Goal to keep rise of sodium sodium less than 8 mEq in 24 hours. Twelve-lead EKG individually reviewed normal sinus rhythm at 95 bpm. QTc 477. Hyponatremia probably due to HCTZ. Serum and urine osmolality and urine electrolytes ordered 2. Fall possible trip over the right foot: Head laceration wound which is sutured. No active bleeding. CT brain was reviewed. Chronic involutional changes of the brain but no acute finding. Patient is also admitted in February 2018 for fall. 3. History of large gastric ulcer in February 2017. At that ankle EGD showed large gastric ulcer without evidence of active bleeding colonoscopy showed descending colon a small polyp that was removed. 4. Hypertension: Patient on lisinopril HCTZ 20/25 milligrams daily. Hold HCTZ. 5. Chronic Numbness/tingling of right foot with stiffness, possible chronic neuropathy: Glucose is 116. A1c ordered. DVT prophylaxis, low risk. Bilateral SCDs. Early ambulation encouraged. Living will/advanced directive/end of life care: Patient does not have living will or advanced directive. After discussion of benefits/risks procedures involved with full code, DNR CC arrest and DNR CC, the patient opted for full code. Patient does want artificial life support including intubation, tube feed, ventilator and/chest compression, central venous catheter, vasopressor and DC shock if needed Total time spent in [id number] encounter in discussion of advanced directive 17 minutes. Laboratory Results 08/17/23 12:10:Sodium 119 L* 08/17/23 12:10: Sodium Pending, Potassium 4.5, Chloride 78 L, Carbon Dioxide 23.0, Anion Gap 18 H, BUN 20 H, Creatinine 1.72 H, Estim Creat Clear Calc 56.13, Est GFR (MDRD) Af Amer 54 L, Est GFR (MDRD) Non-Af 44 L, BUN/Creatinine Ratio 11.6, Glucose 116 H, Calcium 9.5, Troponin I High Sens 4 08/17/23 12:35: WBC 8.4, RBC 4.20 L, Hgb 13.3, Hct 37.2 L, MCV 88.6, MCH 31.7, MCHC 35.8, RDW Std Deviation 40.8, RDW Coeff of Janet 12.6, Plt Count 190, MPV 9.0, Immature Gran % (Auto) 0.400, Neut % (Auto) 73.4 H, Lymph % (Auto) 10.5 L, [place] % (Auto) 15.3 H, Eos % (Auto) 0.2, Baso % (Auto) 0.2, Absolute Neuts (auto) 6.1, Absolute Lymphs (auto) 0.88, Nucleated RBC % 0 08/17/23 12:59: Urine Color Yellow, Urine Clarity Sl. Cloudy, Urine pH 6.0, Ur Specific [place] 1.020, Urine Protein 30 H, Urine Glucose (UA) Normal, Urine Ketones 150 A*, Urine Occult Blood 150 H, Urine Nitrite Negative, Urine Bilirubin Negative, Urine Urobilinogen 1 H, Ur Leukocyte Esterase Negative, Urine RBC 5-10 SEEN, Urine WBC 0-5 SEEN, Ur Squamous Epith Cells 0 SEEN, Urine Bacteria 1+, Urine Mucus 0 SEEN Clinical Impression(s) from Imaging Studies Brain CT 08/17/23 11:55 IMPRESSION: Chronic involutional changes of the brain. Electronically Signed: Cedric Castro MD at 13:13 EDT , Charges/Coding Visit Charges Inpatient E&M: 56444 Init Hosp L3 Procedures Hospitalists Procedures: 71551 Advncd Care Plan 30 Min
[2023-08-17 16:28] LABS: Sodium Level 123 mmol/L (136-145)
[2023-08-17 16:42] LABS: Protein, Urine (Random) 40.2 mg/dL (<11.9); Protein:Creat Ratio 204 mg/g CRE (0-200); Urine Chloride 27 mmol/L (Not Establ.); Urine Sodium 32 mmol/L (Not Establ.)
[2023-08-17 16:53] LABS: Osmolality, Urine 481 mOsm/KG
[2023-08-17 16:53] LABS: Osmolality, Serum 268 mOsm/KG (275-295)
[2023-08-17 16:58] LABS: Magnesium 1.9 mg/dL (1.6-2.6)
[2023-08-17] MEDS: 0.9% Normal Saline (1000mL) 1,000 ML 50 ML IV (17:33)
[2023-08-17] MEDS: proCHLORPERazine 10 MG/2 ML Vial IV (23:04)
[2023-08-18 02:09] VITALS: BP 141/88; PULSE 91; RESP 18; TEMP 36.4; O2SAT 98
[2023-08-18 06:19] LABS: Absolute Lymphocyte Count 0.75 X10^3/uL (0.83-4.51); Absolute Neutrophil Count 6.8 X10^3/uL (2.0-7.7); Basophil# 0.02 X10^3/uL; Basophil% 0.2 % (0-1); Eosinophil# 0.01 X10^3/uL; Eosinophils% 0.1 % (0-5); Hematocrit 36.9 % (40-54); Hemoglobin 13.1 g/dL (13.0-16.5); Lymphocyte # 0.75 X10^3/ul (0.83-4.51); Lymphocyte % 8.3 % (19-41); Mean Corp Hgb Conc 35.5 g/dL (32-36); Monocyte# 1.44 X10^3/uL; NRBC Flagged by Analyzer 0 % (0-5); Neutrophil # 6.78 X10^3/uL (2.7-7.7); Neutrophil % 75.2 % (47-70); Platelet Count 181 K/mm3 (150-450); RBC Distribution Width CV 12.8 % (11.6-14.6); RBC Distribution Width SD 42.4 fl (35.1-43.9)
[2023-08-18 07:01] LABS: Anion Gap 14 (5-15); BUN 14 mg/dL (7-18); BUN/Creat Ratio 10.2 RATIO (10-20); Calcium,Total 8.6 mg/dL (8.5-10.1); Chloride 87 mmol/L (98-107); Creatinine, Serum 1.37 mg/dL (0.70-1.30); EST Glomerular Filtration Rate 58 mL/min (>60); Est Glom Filt Rate - Afr Amer 70 mL/min (>60); Estimated Creatinine Clearance 68.97 ml/min; Glucose 112 mg/dL (74-106); Potassium 3.6 mmol/L (3.5-5.1); Sodium Level 123 mmol/L (136-145); Thyroid Stim Hormone (TSH) 0.98 uIU/mL (0.358-3.74)
--- NOTE | 2023-08-18 08:00 | PCM.PN.HOSP ---
Reason for Visit Reason for Visit: Diagnoses Hypo-osmolality and hyponatremia (08/17/23) Unspecified fall, initial encounter (08/17/23) Subjective Subjective Feels fine. Denies complaints. Objective Data Objective Data Vital Signs: Vital Signs Temp Pulse Resp BP Pulse Ox O2 Del Method 36.4 C L 91 18 141/88 H 98 Room Air 08/18/23 02:09 08/18/23 02:09 08/18/23 02:09 08/18/23 02:09 08/18/23 02:09 08/18/23 02:09 Oxygen Delivery Method Room Air Weight: 78.2 kg Body Mass Index (BMI) 22.7 Intake & Output: Intake and Output for Last 24 Hours 08/16/23 08/17/23 08/18/23 23:59 23:59 23:59 Intake Total 1350 / 1350 110 / 110 Output Total 500 / 500 Balance 850 / 850 110 / 110 Lab / Micro Data 08/18/23 06:03 08/18/23 06:03 Labs: Laboratory Results - last 24 hr 08/17/23 12:10: WBC Cancelled, Corrected WBC Cancelled, RBC Cancelled, Hgb Cancelled, Hct Cancelled, MCV Cancelled, MCH Cancelled, MCHC Cancelled, RDW Std Deviation Cancelled, RDW Coeff of Janet Cancelled, Plt Count Cancelled, MPV Cancelled, Immature Gran % (Auto) Cancelled, Neut % (Auto) Cancelled, Lymph % (Auto) Cancelled, [place] % (Auto) Cancelled, Eos % (Auto) Cancelled, Baso % (Auto) Cancelled, Absolute Neuts (auto) Cancelled, Absolute Lymphs (auto) Cancelled, Total Counted Cancelled, Neutrophils % (Manual) Cancelled, Band Neutrophils % Cancelled, Lymphocytes % (Manual) Cancelled, Monocytes % (Manual) Cancelled, Eosinophils % (Manual) Cancelled, Basophils % (Manual) Cancelled, Metamyelocytes % Cancelled, Myelocytes % Cancelled, Promyelocytes % Cancelled, Blast Cells % Cancelled, Plasma Cell % (Manual) Cancelled, Other Cells % Cancelled, Nucleated RBC % Cancelled, Nucleated RBCs/100 WBC Cancelled, Differential Comment Cancelled, Diff Path Review Cancelled, Hypersegmented Neuts Cancelled, Atypical Lymphocytes Cancelled, Reactive Lymphocytes Cancelled, Smudge Cells Cancelled, Toxic Granulation Cancelled, Toxic Vacuolation Cancelled, Dohle Bodies Cancelled, Soto Rods Cancelled, Platelet Estimate Cancelled, Plt Morphology Comment Cancelled, RBC Morphology Cancelled 08/17/23 12:10: RBC Morphology Cancelled, Polychromasia Cancelled, Hypochromasia Cancelled, Basophilic Stippling Cancelled, Anisocytosis Cancelled, Microcytosis Cancelled, Macrocytosis Cancelled, Spherocytes Cancelled, Sickle Cells Cancelled, Target Cells Cancelled, Tear Drop Cells Cancelled, Ovalocytes Cancelled, Stomatocytes Cancelled, [place] Bodies Cancelled, [place] Cells Cancelled, Bite Cells Cancelled, Crenated Cell Cancelled, Acanthocytes (Spur) Cancelled, Rouleaux Cancelled, Schistocytes Cancelled, Sodium 119 L*, Potassium 4.5, Chloride 78 L, Carbon Dioxide 23.0, Anion Gap 18 H, BUN 20 H, Creatinine 1.72 H, Estim Creat Clear Calc 56.13, Est GFR (MDRD) Af Amer 54 L, Est GFR (MDRD) Non-Af 44 L, BUN/Creatinine Ratio 11.6, Glucose 116 H, Calcium 9.5, Troponin I High Sens 4 08/17/23 12:35: WBC 8.4, RBC 4.20 L, Hgb 13.3, Hct 37.2 L, MCV 88.6, MCH 31.7, MCHC 35.8, RDW Std Deviation 40.8, RDW Coeff of Janet 12.6, Plt Count 190, MPV 9.0, Immature Gran % (Auto) 0.400, Neut % (Auto) 73.4 H, Lymph % (Auto) 10.5 L, [place] % (Auto) 15.3 H, Eos % (Auto) 0.2, Baso % (Auto) 0.2, Absolute Neuts (auto) 6.1, Absolute Lymphs (auto) 0.88, Nucleated RBC % 0 08/17/23 12:59: Urine Color Yellow, Urine Clarity Sl. Cloudy, Urine pH 6.0, Ur Specific [place] 1.020, Urine Protein 30 H, Urine Glucose (UA) Normal, Urine Ketones 150 A*, Urine Occult Blood 150 H, Urine Nitrite Negative, Urine Bilirubin Negative, Urine Urobilinogen 1 H, Ur Leukocyte Esterase Negative, Urine RBC 5-10 SEEN, Urine WBC 0-5 SEEN, Ur Squamous Epith Cells 0 SEEN, Urine Bacteria 1+, Urine Mucus 0 SEEN, Urine Osmolality 481, U Random Total Protein 40.2 H, Ur Random Sodium 32, Urine Creatinine 197.00, Protein/Creatinin Ratio 204 H, Urine Potassium 66.0, Urine Chloride 27 08/17/23 16:05: Sodium 123 L, Serum Osmolality 268 L, Magnesium 1.9 08/18/23 06:03: WBC 9.0, RBC 4.10 L, Hgb 13.1, Hct 36.9 L, MCV 90.0, MCH 32.0, MCHC 35.5, RDW Std Deviation 42.4, RDW Coeff of Janet 12.8, Plt Count 181, MPV 9.0, Immature Gran % (Auto) 0.200, Neut % (Auto) 75.2 H, Lymph % (Auto) 8.3 L, [place] % (Auto) 16.0 H, Eos % (Auto) 0.1, Baso % (Auto) 0.2, Absolute Neuts (auto) 6.8, Absolute Lymphs (auto) 0.75 L, Nucleated RBC % 0, Sodium 123 L, Potassium 3.6, Chloride 87 L, Carbon Dioxide 22.0, Anion Gap 14, BUN 14, Creatinine 1.37 H, Estim Creat Clear Calc 68.97, Est GFR (MDRD) Af Amer 70, Est GFR (MDRD) Non-Af 58 L, BUN/Creatinine Ratio 10.2, Glucose 112 H, Calcium 8.6, TSH 0.98 Radiography Diagnostic Testing: Radiology Impression Brain CT 08/17/23 11:55 IMPRESSION: Chronic involutional changes of the brain. Electronically Signed: Cedric Castro MD at 13:13 EDT , Physical Exam Const Constitutional Narrative: Disheveled. Peers older than stated age. Afebrile. Resp normal respiratory effort, no retractions, no use of accessory muscles and clear to auscultation bilaterally Cardio regular rate, regular rhythm, S1 normal heart sound and S2 normal heart sound Neuro Sensorium / Orientation: awake and alert Assessment & Plan Assessment/Plan (1) Fall: (2) Acute hyponatremia: PLAN: Plan Hyponatremia May be related volume depletion as well as HCTZ. Has improved with IV fluids. Will reevaluate. If improving, could likely discharge home. Fall, mechanical. Patient doing well with ambulation. Charges/Coding Visit Charges Inpatient E&M: 99621 Subs Hosp L2
[2023-08-18 08:24] VITALS: BP 109/78; PULSE 99; RESP 16; TEMP 36.5; O2SAT 100
[2023-08-18] MEDS: Pantoprazole Sodium 20 MG Tablet PO (08:34)
[2023-08-18] MEDS: Ondansetron 4 MG/2 ML Vial IV (08:34)
--- NOTE | 2023-08-18 10:10 | CASEMGMT ---
SW completed assessment with patient. Patient was sitting up in his recliner. SW confirmed patient's address and contact acid plant operator. Patient did appear unkempt. Patient was open to talking with SW, but did not know answers to everything SW asked. PCP: Patient is not sure, but his demographics sheet shows Mildred Escobedo. Specialists: None Insurance: [facility] Medicaid Prescription coverage through [facility] Pharmacy: [facility] LW/HCPOA: None LNOK: Patient has sister, cousins, and nephews in another county. He does not talk with them at all and has not been in touch with them in years. Patient did not want any of them listed. Living arrangements: Patient lives alone in an apartment with 15 entry steps DME: walk in shower, grab bars, wheeled walker and cane (items were his mom's) Transportation: [employer] Flight Attendant Jessica through [employer]. HHC/SNF: None Substance use: Patient denies Mental health: Patient denies Finances: Patient does not get a monthly check. Patient said he has bank accounts. Plan: SW asked patient about his d/c plan. SW asked patient if he felt like he would be able to go home at discharge. Patient stated he hopes so. SW asked patient if snf was recommended would he be willing to go. Patient did not have an answer. Patient seemed irritated that his case management social worker Jessica with [employer] is out until August 30. Patient said he will need a ride home. Patient said he was hoping Jessica could take him home. However, if she is out not sure this is an option. SW did review patient's chart and noted ED STERLING spoke with patient in July due to numerous ED visits. It appears patient used to live with his mom, but she has since past. Patient has a case management social worker Jessica with [employer]. Per ED STERLING's previous discussion with Jessica patient does not have any official mental health or developmental delay diagnoses. However, they suspect patient may be on the autism spectrum. Patient is surviving on money left from his mom. Rent and utilities are automatically deducted from the checking account. Jessica takes patient everywhere including appts, store etc. Patient gets food assistance from [employer]. STERLING will have to follow up with patient's case management social worker or covering case management social worker on Sunday to discuss needs. Su FANG
--- NOTE | 2023-08-18 10:49 | CASEMGMT ---
SW provided patient with transportation resources ([employer] and [facility] Medicaid). Su James PROGRAMMING EQUIPMENT OPERATOR ANNALISA
--- NOTE | 2023-08-18 10:54 | CASEMGMT ---
STERLING called patient's correctional counselor/case manager Jessica and left her a voice mail requesting a return call. Su FANG
[2023-08-18 11:11] LABS: Hemoglobin A1c 5.5 % (3.8-5.6)
[2023-08-18 13:14] LABS: Anion Gap 15 (5-15); BUN 14 mg/dL (7-18); BUN/Creat Ratio 8.8 RATIO (10-20); Calcium,Total 8.7 mg/dL (8.5-10.1); Chloride 87 mmol/L (98-107); EST Glomerular Filtration Rate 48 mL/min (>60); Est Glom Filt Rate - Afr Amer 58 mL/min (>60); Estimated Creatinine Clearance 59.06 ml/min; Glucose 122 mg/dL (74-106); Potassium 3.2 mmol/L (3.5-5.1); Sodium Level 124 mmol/L (136-145)
--- NOTE | 2023-08-18 13:34 | DS.PCM_ITS ---
Providers Date of Admission: 08/17/23 Primary Care Physician: Mildred Escobedo DO Reason For Visit: HYPONATREMIA, SEVERE Diagnosis Discharge Diagnosis (1) Fall: Status: Acute Code(s): W19.XXXA - Unspecified fall, initial encounter (2) Acute hyponatremia: Status: Chronic Code(s): E87.1 - Hypo-osmolality and hyponatremia Plan Hyponatremia * May be related volume depletion as well as HCTZ. Has improved with IV fluids. Will reevaluate. If improving, could likely discharge home. Right forehead laceration * Sutures placed in the emergency room. Those need to be removed in 7 to 10 days. Hypokalemia * Replace Fall, mechanical. * Patient with unsteady gait and uses the rail to walk. Patient will need a walker. Patient states that he has his mother's walker at home, who is since . Will see about arranging for a walker for him at home. He is open to home health care. Medications at Discharge Home Medications ibuprofen 600 mg tablet 600 mg PO Q8H PRN PRN fever 08/17/23 omeprazole 20 mg capsule,delayed release 20 mg PO DAILY 08/17/23 acetaminophen 500 mg tablet 1,000 mg (2 x 500 mg) PO Q8H PRN PRN fever or pain #30 tabs 08/18/23 Hospital Course Operations None Procedures None Summary of Care Provided Minutes Spent on Discharge: 35 Hospital Course: Patient fell hitting his head. Patient sustained a laceration to his right forehead. Present to the emergency room where he had that sutured. Head CT was negative. Patient was notably hyponatremic with a sodium of 117. Presumably this is due to his HCTZ which has been held. Patient did receive IV fluids and his sodium has slowly come up to 124. I ambulated the patient in the hallway is very anxious to get up and walk around but he does feel unsteady on his feet. Discussed with him that therapy would likely recommend him going for rehab. He states that he is not interested in going to a facility and would be open to going home with home health care. Recommend that he should use a walker when he is getting around. He said he does have a walker at home but that was his mother's. Will see about getting him a walker at home so that he may walk around safely. Weight / BMI Weight Weight: 78.2 kg Body Mass Index (BMI) 22.7 ABG / Lab / Microbiology Data 08/18/23 06:03 08/18/23 12:15 Laboratory: Laboratory Results - last 24 hr 08/17/23 12:10: Troponin I High Sens 4 08/17/23 12:59: Urine RBC 5-10 SEEN, Urine WBC 0-5 SEEN, Ur Squamous Epith Cells 0 SEEN, Urine Bacteria 1+, Urine Mucus 0 SEEN, Urine Osmolality 481, U Random Total Protein 40.2 H, Ur Random Sodium 32, Urine Creatinine 197.00, P rotein/Creatinin Ratio 204 H, Urine Potassium 66.0, Urine Chloride 27 08/17/23 16:05: Sodium 123 L, Serum Osmolality 268 L, Magnesium 1.9 08/18/23 06:03: WBC 9.0, RBC 4.10 L, Hgb 13.1, Hct 36.9 L, MCV 90.0, MCH 32.0, MCHC 35.5, RDW Std Deviation 42.4, RDW Coeff of Janet 12.8, Plt Count 181, MPV 9.0, Immature Gran % (Auto) 0.200, Neut % (Auto) 75.2 H, Lymph % (Auto) 8.3 L, M oksana % (Auto) 16.0 H, Eos % (Auto) 0.1, Baso % (Auto) 0.2, Absolute Neuts (auto) 6.8, Absolute Lymphs (auto) 0.75 L, Nucleated RBC % 0, Sodium 123 L, Potassium 3.6, Chloride 87 L, Carbon Dioxide 22.0, Anion Gap 14, BUN 14, Creatinine 1.37 H , Estim Creat Clear Calc 68.97, Est GFR (MDRD) Af Amer 70, Est GFR (MDRD) Non-Af 58 L, BUN/Creatinine Ratio 10.2, Glucose 112 H, Hemoglobin A1c 5.5, Calcium 8.6, TSH 0.98 08/18/23 12:15: Sodium 124 L, Potassium 3.2 L, Chloride 87 L, Carbon Dioxide 22.0, Anion Gap 15, BUN 14, Creatinine 1.60 H, Estim Creat Clear Calc 59.06, Est GFR (MDRD) Af Amer 58 L, Est GFR (MDRD) Non-Af 48 L, BUN/Creatinine Ratio 8.8 L, Glucose 122 H, Calcium 8.7 D/C Instructions Discharge Diet: No restrictions Discharge Activity: Use Walker Weight Bearing Status: Full weight bearing Meaningful Use Info Meaningful Use Meaningful Use Diagnoses (Choose all that apply): None applicable Ischemic Stroke Statin Dosing Therapy Reference: STATIN DOSE THERAPY REFERENCE: * Patients > 75 years receive moderate or high dose statin therapy. * Patients 75 years or YOUNGER should receive HIGH intensity statin dose unless contraindicated. You will be required to document reason for non-treatment if statin daily dose does not meet guidelines. HIGH DOSE STATIN THERAPY DAILY Atorvastatin > than or = to 40 mg Rosuvastatin > than or = to 20 mg Amlodipine + Atorvastatin > than or = to 2.5/40 mg Ezetimibe + Simvastatin 10/80 mg Simvastatin 80mg Discharge Plan Admission Admit Date/Time: 08/17/23 15:14 Primary Reason for Your Visit: Fall. Hyponatremia Attending Provider: Bill Pichardo Primary Care Provider: Mildred Escobedo Consulting Providers: Aditya Weaver Instructions Additional Instructions / Restrictions: From your fall, you sustained a laceration to your right forehead. Sutures were placed. Those will need to be removed in about 7 to 10 days. You may follow with your primary care doctor about having those removed. Your sodium is low and this is likely due to hydrochlorothiazide which is part of your combination pill with lisinopril. Your blood pressure is doing okay so we will just hold off on any blood pressure medications at this time. You are unsteady. He may have component of neuropathy, numbness of your feet. But due to your unsteadiness, is recommend that you use a walker when you walk to prevent further falls. Also recommend that home health care, to your house. Discharge Orders/Prescriptions Prescriptions: Continued omeprazole 20 mg capsule,delayed release(DR/EC) 20 mg PO DAILY ibuprofen 600 mg tablet 600 mg PO Q8H PRN PRN (Reason: fever) Changed acetaminophen 500 mg tablet 1,000 mg PO Q8H PRN PRN (Reason: fever or pain) Qty: 30 0RF Discontinued lisinopril-hydrochlorothiazide 20-25 mg tablet 1 tab PO DAILY Referrals / Follow Up: Mildred Escobedo DO [Primary Care Provider] - Within 2 Weeks Disposition Disposition (needs filled in before D/C Order can be placed): Home Health Service Charges/Coding Visit Charges Inpatient E&M: 21453 Disch Hosp >30min
[2023-08-18] MEDS: Potassium Chloride Oral Tablet 20 MEQ 40 MEQ PO (13:57)
--- NOTE | 2023-08-18 14:00 | CASEMGMT ---
Patient will be discharged home today. STERLING will follow up with patient's case specialist on Sunday. Su FANG
--- NOTE | 2023-08-18 14:04 | CASEMGMT ---
SYDNEY LEACH NOTE: Pt being discharged home. RN HAYLEE to room. Introduced self and role. Pt states does not wish to go to a SNF, wants to go home, and would like [facility]. Pt states 1st preference is [facility]. Made aware a call will be placed to [facility] and message left and someone will need to f/u with him next week re: acceptance. He does not have a phone and states his CMJessica, arranges all of his appts and f/u care for him and that she will be able to reach him. Order placed for [facility]: SN and PT/OT. Call placed to [facility] and VM left re: referral. VM stated to contact pt's Jessica LEACH, if they are able to accept him for appt's to be scheduled and also to contact jose Armenta re: if they are able to accept pt or not. Pt agreeable to having a blanket referral sent to other [facility] agencie's in-network w/his insurance if [facility] unable to accept him. Pt denies having other discharge needs/concerns. E-mail sent to Kathi peter, and HAYLEE Baker director, for f/u Mon re: [facility]. Ciro SPEAR RN, CM
[2023-08-18 15:45] VITALS: BP 121/72; PULSE 102; RESP 16; TEMP 36.6; O2SAT 95
--- NOTE | 2023-08-20 10:44 | CASEMGMT ---
Discharge Planning [facility] has accepted patient with tentative soc Weds. Kari alfaro/[facility] HH will reach out to patients family caseworker to coordinate notifying patient. Kathi Sprague DC Planning Asst.
== END 2023-08-18 16:51 | disposition home health service (06) | DRG 426 ==
LOC: ED 15:08 → PCU 16:31
PROVIDERS: Admitting Provider Internal Medicine; Emergency Provider Emergency Medicine; PCP Family Medicine
DX: E87.1 Hypo-osmolality and hyponatremia (principal); E87.6 Hypokalemia; I10 Essential (primary) hypertension; S01.81XA Laceration without foreign body of other part of head, initial encounter; G62.9 Polyneuropathy, unspecified; W19.XXXA Unspecified fall, initial encounter; K21.9 Gastro-esophageal reflux disease without esophagitis; Z79.899 Other long term (current) drug therapy
CPT/HCPCS: 36415; 70450; 80048; 81001; 82436; 82570; 83036; 83735; 83930; 83935; 84133; 84156; 84295; 84300; 84443; 84484; 85025; 90715; 93005; 97162; 97165; 97802; 99285; J7030; A4216; J2405

== ENCOUNTER 2023-09-03 10:56 | Emergency (ER) | payer MEDICAID, SELFPAY ==
[2023-09-03 10:57] VITALS: BP 124/94; PULSE 107; RESP 18; TEMP 36.8; O2SAT 100; BMI 21.9
--- NOTE | 2023-09-03 11:04 | EX.ED.DYSGE1 ---
HPI History of Present Illness Chief Complaint: Nausea/Vomiting Informant: patient Onset/Context/Timing Onset: Month(s) (1) Context: Gradual Onset Timing: Intermittent Quality: Stomach contents Location: Abdomen Worsened by: Nothing Relieved by: Nothing Narrative Narrative: Patient presents with nausea and vomiting that has been constant for the past month. Patient states he only vomits up stomach contents. Patient denies any hematemesis or coffee-ground emesis. Patient admits to some constipation. Patient denies any diarrhea, melena, or hematochezia. Patient denies any abdominal pain. Patient denies any fevers or chills. Patient denies any urinary complaints. Patient states nothing makes his nausea and vomiting better and nothing makes it worse. [facility] Medical History Hypertension Frequent falls Severe protein-calorie malnutrition GERD (gastroesophageal reflux disease) Gastric ulcer due to nonsteroidal anti-inflammatory drug (NSAID) Peptic ulcer disease Home Medications ?Medication ?Instructions ?Recorded ?Last Taken ?Type omeprazole 20 mg capsule,delayed 20 mg PO DAILY reflux 08/17/23 09/03/23 History release acetaminophen 500 mg tablet 1,000 mg (2 x 500 mg) PO Q8H PRN 08/18/23 Unknown Rx PRN fever or pain #30 tabs lisinopril 20 1 tab PO DAILY 09/03/23 09/03/23 History mg-hydrochlorothiazide 25 mg tablet Allergy/AdvReac Type Severity Reaction Status Date / Time No Known Allergies Allergy Verified 09/03/23 10:58 Surgical History no surgical history no surgical history Social History household members: none housing: apartment Smoking Status: Never smoker alcohol intake: never substance use type: does not use ROS ROS ED Constitutional Constitutional ED: Denies chills or fever(s) Eyes Eyes: Denies blurry vision or change in vision ENT ENT ED: Denies rhinorrhea or sore throat Cardiovascular Cardiovascular: Denies chest pain or palpitations Respiratory/Chest Respiratory/Chest: Denies cough or dyspnea Gastrointestinal Gastrointestinal: Reports nausea and vomiting Genitourinary Genitourinary ED: Denies dysuria or hematuria Musculoskeletal Musculoskeletal: Denies back pain or neck pain Integumentary Denies abscess or rash Neurologic Neurologic: Denies headache(s) or weakness Allergic/Immunologic Allergic/Immunologic ED: Denies mouth swelling or urticaria EXAM Physical Exam Const Vital Signs: 09/03/23 10:57 09/03/23 11:06 09/03/23 12:06 Temperature 98.2 F 98.2 F 98.1 F Temperature Source Oral Oral Oral Pulse Rate 107 H 107 H 104 H Respiratory Rate 18 18 18 Blood Pressure 124/94 H 124/94 H 135/86 H Blood Pressure Mean 104 104 102 Pulse Ox 100 100 99 Oxygen Delivery Method Room Air Room Air Room Air 09/03/23 13:00 09/03/23 14:00 Temperature 98.2 F 98.3 F Temperature Source Oral Oral Pulse Rate 102 H 101 H Respiratory Rate 17 16 Blood Pressure 119/97 H 116/94 H Blood Pressure Mean 104 101 Pulse Ox 98 99 Oxygen Delivery Method Room Air Room Air Positive well nourished and well developed General Appearance ED: well developed and NAD HEENT Reports moist mucous membranes Eyes PERRL and EOMs intact bilaterally General Eye ED: Negative for scleral icterus Neck supple and no JVD Resp normal respiratory effort and clear to auscultation bilaterally Cardio regular rate and regular rhythm GI non-tender and non-distended Palpation: soft Neuro oriented x3, CN's II-XII intact bilaterally and no sensory deficits noted Sensorium / Orientation: alert Motor Exam: strength 5/5 throughout Psych Mood & Affect: depressed MDM MDM MDM Narrative Medical decision making narrative: Differential diagnosis includes bowel obstruction, gastritis, cholecystitis, cholelithiasis, pancreatitis, viral illness, and electrolyte abnormality. CBC will be obtained to assess for leukocytosis and anemia. Comprehensive metabolic profile will be obtained to assess for hepatic function, renal function, and electrolyte abnormality. Urinalysis will be obtained to assess for urinary tract infection and hematuria. Lipase will be obtained to assess for pancreatitis. CT scan of the abdomen pelvis will be obtained to assess for bowel obstruction and perforation. Lab Data Attestation: I reviewed the patient's lab results. Lab results narrative: CBC was reviewed and was within normal limits. Comprehensive metabolic profile was reviewed. Total bilirubin was slightly elevated at 1.7. BUN was slightly elevated at 39 and creatinine was slightly elevated at 1.52. These are consistent with previous results. Sodium was slightly low at 128 and chloride was slightly low at 89. These are also consistent with previous results. Potassium was slightly low at 3.2. Urinalysis was reviewed. Urine ketones were 150. Occult blood was 250 but there were 0-5 red blood cells seen. Leukocyte esterase was 25 but 0-5 white blood cells were seen. Labs: Laboratory Results - last 24 hr 09/03/23 09/03/23 11:15 13:15 WBC 10.3 RBC 5.24 Hgb 16.1 Hct 47.5 MCV 90.6 MCH 30.7 MCHC 33.9 RDW Std Deviation 44.4 H RDW Coeff of Janet 13.4 Plt Count 295 MPV 9.6 Immature Gran % (Auto) 0.700 Neut % (Auto) 70.5 H Lymph % (Auto) 13.6 L Garvin % (Auto) 13.5 H Eos % (Auto) 1.0 Baso % (Auto) 0.7 Absolute Neuts (auto) 7.3 Absolute Lymphs (auto) 1.40 Nucleated RBC % 0 Sodium 128 L Potassium 3.2 L Chloride 89 L Carbon Dioxide 26.0 Anion Gap 13 BUN 39 H Creatinine 1.52 H Estim Creat Clear Calc 59.94 Est GFR (MDRD) Af Amer 62 Est GFR (MDRD) Non-Af 51 L BUN/Creatinine Ratio 25.7 H Glucose 104 Calcium 9.2 Total Bilirubin 1.70 H AST 19 ALT 51 Alkaline Phosphatase 104 Total Protein 8.2 Albumin 3.4 Globulin 4.8 H Albumin/Globulin Ratio 0.7 L Lipase 495 H Urine Color Yellow Urine Clarity Sl. Cloudy Urine pH 5.0 Ur Specific [place] 1.015 Urine Protein 30 H Urine Glucose (UA) Normal Urine Ketones 150 A* Urine Occult Blood 250 H Urine Nitrite Negative Urine Bilirubin 1 H Urine Urobilinogen 4 H Ur Leukocyte Esterase 25 H Urine RBC 0-5 SEEN Urine WBC 0-5 SEEN Ur Squamous Epith Cells 0-5 SEEN Urine Bacteria RARE Urine Mucus 0 SEEN Radiography Diagnostic Testing: Clinical Impression(s) from Imaging Studies Abdomen/Pelvis CT 09/03/23 11:26 IMPRESSION: Heart stool is seen in the rectum Fatty infiltration of the liver. Electronically Signed: Cedric Castro MD at 12:43 EDT , CT scan of the abdomen pelvis was obtained. There is stool noted in the rectum. There is fatty infiltration of the liver. There is no evidence of obstruction or perforation. This was interpreted by the radiologist and was also independently reviewed by myself. Treatment and Re-Evaluation :: Patient was given IV fluids and Zofran. Patient was given a dose of oral potassium. Patient was also given a soapsuds enema. Patient was instructed to use [id number] laxatives as needed. Patient was instructed to follow-up with his primary care physician in 5 to 7 days. Patient was instructed to return if worse in any way. Patient understood and was agreeable with the plan. All questions were answered. Discharge Plan Triage Chief Complaint: Nausea/Vomiting ED Provider: Bill Castellano Dx/Rx/DC Orders Clinical Impression: Constipation, Nausea and vomiting Instructions: ED Constipation (Adult), ED Vomiting (Adult) Prescriptions: No Action omeprazole 20 mg capsule,delayed release(DR/EC) 20 mg PO DAILY acetaminophen 500 mg tablet 1,000 mg PO Q8H PRN PRN (Reason: fever or pain) Qty: 30 0RF lisinopril-hydrochlorothiazide 20-25 mg tablet 1 tab PO DAILY Primary Care Provider: Mildred Escobedo Referrals: Mildred Escobedo DO [Primary Care Provider] - 3-5 Days Print Language: Greenlandic Disposition Disposition: Home, Self Care
[2023-09-03 11:06] VITALS: BP 124/94; PULSE 107; RESP 18; TEMP 36.8; O2SAT 100
--- NOTE | 2023-09-03 11:26 | CT_ITS ---
STUDY: CT ABDOMEN AND PELVIS WITH CONTRAST REASON FOR EXAM: Male, 52 years old. One month history of vomiting. No bowel movements for the past week. RADIATION DOSAGE (If Supplied By Facility): CTDIvol = ( 14.19 ) mGy, DLP = ( 689.21 ) mGycm TECHNIQUE: Transaxial images were obtained from the dome of the diaphragm to the symphysis pubis without oral contrast. IV 100mL Isovue-370 was administered. Sagittal and coronal images were reconstructed. Individualized dose optimization techniques were used for this CT. COMPARISON: None. FINDINGS: The visualized lung bases are unremarkable. The visualized portions of the heart are within normal limits. There is decreased attenuation of the liver consistent with steatosis. Normal gallbladder and extrahepatic biliary system. Normal spleen. Normal pancreas. Normal bilateral adrenal glands. Normal right kidney. Normal left kidney. Normal visualized stomach. Normal small intestine. There are scattered colonic diverticula consistent with diverticulosis. Hard stool is seen in the rectum. The appendix is visualized and appears normal. There is scattered atherosclerotic calcification of the abdominal aorta, without a demonstrated aneurysm. Normal inferior vena cava. Normal retroperitoneum. Normal urinary bladder. Heterogeneous enlargement of the prostate measuring 4.2 cm x 5.3 cm. This causes indentation of the bladder base. There is a small umbilical hernia containing fat. There are mild degenerative changes of the visualized lumbar spine. CT/Abdomen/Pelvis W IV Cont ONLY IMPRESSION: Heart stool is seen in the rectum Fatty infiltration of the liver. Electronically Signed: Cedric Castro MD at 12:43 EDT ,
[2023-09-03] MEDS: Ondansetron 4 MG/2 ML Vial IV (11:43)
[2023-09-03] MEDS: 0.9% Normal Saline (1000mL) 1,000 ML 999 ML IV (11:43)
[2023-09-03 11:48] LABS: Absolute Neutrophil Count 7.3 X10^3/uL (2.0-7.7); Basophil# 0.07 X10^3/uL; Basophil% 0.7 % (0-1); Hematocrit 47.5 % (40-54); Hemoglobin 16.1 g/dL (13.0-16.5); Lymphocyte % 13.6 % (19-41); Mean Corp Hgb Conc 33.9 g/dL (32-36); Mean Corpuscular Hgb 30.7 pg (27.0-32.0); Mean Corpuscular Volume 90.6 fL (80-94); Mean Platelet Vol. 9.6 fl (6.2-12.0); Monocyte# 1.39 X10^3/uL; Monocyte% 13.5 % (0-10); NRBC Flagged by Analyzer 0 % (0-5); Neutrophil # 7.29 X10^3/uL (2.7-7.7); Neutrophil % 70.5 % (47-70); Platelet Count 295 K/mm3 (150-450); RBC Distribution Width CV 13.4 % (11.6-14.6); RBC Distribution Width SD 44.4 fl (35.1-43.9); Red Blood Count 5.24 M/mm3 (4.6-6.2); White Blood Count 10.3 K/mm3 (4.4-11.0)
[2023-09-03 12:06] VITALS: BP 135/86; PULSE 104; RESP 18; TEMP 36.7; O2SAT 99
[2023-09-03 12:11] LABS: ALB/GLOB Ratio 0.7 RATIO (0.9-2.4); AST(SGOT) 19 U/L (15-37); Alanine Aminotransfer ALT/SGPT 51 U/L (16-61); Albumin, Serum 3.4 g/dL (3.2-5.0); Alkaline Phosphatase 104 U/L (45-117); Anion Gap 13 (5-15); BUN 39 mg/dL (7-18); BUN/Creat Ratio 25.7 RATIO (10-20); Calcium,Total 9.2 mg/dL (8.5-10.1); Chloride 89 mmol/L (98-107); Creatinine, Serum 1.52 mg/dL (0.70-1.30); EST Glomerular Filtration Rate 51 mL/min (>60); Est Glom Filt Rate - Afr Amer 62 mL/min (>60); Estimated Creatinine Clearance 59.94 ml/min; Globulin 4.8 g/dL (2.2-4.2); Glucose 104 mg/dL (74-106); Lipase 495 U/L (13-75); Potassium 3.2 mmol/L (3.5-5.1); Protein, Total 8.2 g/dL (6.4-8.2); Sodium Level 128 mmol/L (136-145)
[2023-09-03 13:00] VITALS: BP 119/97; PULSE 102; RESP 17; TEMP 36.8; O2SAT 98
[2023-09-03 13:21] LABS: Mucous, Urine 0 SEEN /hpf (<or=2+)
[2023-09-03 13:22] LABS: Color, Urine Yellow (Yellow); Glucose, Dipstick Normal (Normal); Leukocyte Esterase-Dipstick 25 /ul (Negative); Nitrite-Dipstick Negative (Negative); Occult Blood-Urine 250 /ul (Negative); Protein-Dipstick 30 mg/dl (Negative); Specific Gravity, Urine 1.015 (1.002-1.030); Urine Clarity Sl. Cloudy (Clear); Urine Urobilinogen 4 mg/dl (Normal)
[2023-09-03 13:24] LABS: Ketone-Dipstick 150 mg/dl (Negative); Urine Bilirubin Dipstick 1 mg/dL (Negative)
[2023-09-03 13:27] LABS: Red Blood Cells-Urine 0-5 SEEN /hpf (0-5); White Blood Cells 0-5 SEEN /hpf (0-5)
[2023-09-03 13:28] LABS: Bacteria RARE /hpf (None Seen); Squamous Epithelial Cells - UA 0-5 SEEN /hpf (0-5)
[2023-09-03 14:00] VITALS: BP 116/94; PULSE 101; RESP 16; TEMP 36.8; O2SAT 99
[2023-09-03 16:00] VITALS: BP 148/92; PULSE 75; RESP 16; TEMP 36.6; O2SAT 97
[2023-09-03] MEDS: Potassium Chloride Oral Tablet 20 MEQ 40 MEQ PO (16:09)
== END 2023-09-03 16:09 | disposition home or self-care (01) ==
PROVIDERS: Emergency Provider Emergency Medicine; PCP Family Medicine; Visit Provider Emergency Medicine
DX: R11.2 Nausea with vomiting, unspecified (principal); K59.00 Constipation, unspecified; I10 Essential (primary) hypertension; R29.6 Repeated falls; K21.9 Gastro-esophageal reflux disease without esophagitis
CPT/HCPCS: 74177; 80053; 81001; 83690; 85025; 96361; 96374; 99285; Q9967; A4216; J2405

== ENCOUNTER 2023-09-11 10:57 | Emergency (ER) | payer MEDICAID, SELFPAY ==
[2023-09-11 10:59] VITALS: BP 121/99; PULSE 119; PULSE 120; RESP 32; TEMP 36.7; O2SAT 100; O2SAT 97
--- NOTE | 2023-09-11 11:06 | EKG12_ITS ---
Test Reason : NAUSEA Blood Pressure : / mmHG Vent. Rate : 107 BPM Atrial Rate : 107 BPM P-R Int : 148 ms QRS Dur : 086 ms QT Int : 354 ms P-R-T Axes : 065 023 063 degrees QTc Int : 472 ms ATRIAL TACH WITH 2:1 CONDUCTION ABNORMAL Confirmed by Rudy Thomas ([id number]), editor producer WIN CASON ([id number]) on 09/13/2023 9:20:56 AM Referred By: Confirmed By:Rudy Thomas
--- NOTE | 2023-09-11 11:12 | EDS_ITS ---
HPI History of Present Illness Chief Complaint: Nausea/Vomiting Narrative Narrative: 52-year-old male presents via EMS with generalized weakness, nausea and vomiting that has had for 2 months. He states that he has a home health provider that told him that he needed to come to the emergency department. He states that he vomited a little bit this morning, but has not been vomiting for at least 4 days to a week. He is generally weak. He denies fevers or chills, or other symptoms. [facility] Medical History Hypertension Frequent falls Severe protein-calorie malnutrition GERD (gastroesophageal reflux disease) Gastric ulcer due to nonsteroidal anti-inflammatory drug (NSAID) Peptic ulcer disease Home Medications ?Medication ?Instructions ?Recorded ?Last Taken ?Type omeprazole 20 mg capsule,delayed 20 mg PO DAILY ACID REFLUX 08/17/23 09/03/23 History release lisinopril 20 1 tab PO DAILY BLOOD PRESSURE 09/03/23 09/03/23 History mg-hydrochlorothiazide 25 mg tablet acetaminophen 500 mg tablet 1,000 mg PO Q8H PRN FEVER/PAIN 09/11/23 Unknown History Allergy/AdvReac Type Severity Reaction Status Date / Time No Known Allergies Allergy Verified 09/03/23 10:58 Social History household members: none housing: apartment Smoking Status: Never smoker alcohol intake: never substance use type: does not use ROS ROS ED ROS Narrative Constitutional: No fever, no chills. Mild generalized weakness. HEENT: No sore throat. No neck pain. No loss of vision. No rhinorrhea. Cardiovascular: No chest pain. No palpitations. No pedal edema. Respiratory: No cough, no shortness of breath. Abdominal: No abdominal pain. Positive nausea and vomiting x 2 months. Genitourinary: No dysuria. No hematuria. Musculoskeletal: No myalgias. No arthralgias. Neurologic: No headaches. No dizziness. No lightheadedness. Skin: No rash. No change in color. Psychiatric: No depression. No anxiety. EXAM Physical Exam Narrative Exam Narrative: Afebrile. Vital signs noted. HEENT: Normocephalic. Atraumatic. PERRL, EOMI. Neck soft and supple. No point tenderness or step off. Cardiovascular: Positive tachycardia no murmurs, rubs, or gallops appreciated. Respiratory: No tachypnea. Lungs clear to auscultation bilaterally. Gastrointestinal: Abdomen soft, nontender, with normoactive bowel sounds. No rebound or guarding. Neurological: Awake. Alert. Nonfocal, nonlateralizing. Ambulatory with walker to bathroom. Skin: No rash. Normal color. No pallor. Musculoskeletal: No pedal edema. Full range of motion extremities. Const Vital Signs: 09/11/23 10:59 09/11/23 10:59 Temperature 98.1 F Temperature Source Oral Pulse Rate 119 H 120 H Respiratory Rate 32 H 32 H Blood Pressure 121/99 H Blood Pressure Mean 106 Pulse Ox 97 100 Oxygen Delivery Method Room Air Room Air MDM MDM MDM Narrative Medical decision making narrative: I reviewed the patient's prior ED visits. He has had hyponatremia in the past and was seen for nausea, vomiting, and constipation. Given his tachycardia, concern would be for dehydration versus electrolyte imbalance. He states that he did not want to come to the emergency department, but it has feels that he is weak, and was told that he needed to be checked in. I did review his prior ED visit before the most recent, and he had been admitted for failure to thrive and hyponatremia of 119. The last time he was here after he had been discharged it was 128 and he was given IV fluids and discharged. Concern again would be for dehydration and hyponatremia along with failure to thrive. EKG was obtained and interpreted by myself independently as sinus tachycardia at 107 bpm without ectopy or acute ST changes. No STEMI. No significant change from EKG dated August 17, 2023. I reviewed his laboratory work and he has normal white count 9.5 with hemoglobin 14.3, platelet count normal at 280. He does appear mildly dehydrated with a sodium of 131 and a chloride of 93, BUN elevated at 24 with creatinine 1.38. He was bolused normal saline 1 L intravenously. LFTs are grossly unremarkable, no elevation of AST and ALT. His lipase is elevated at 469. In review of his other laboratory work he had an elevated lipase and was more hyponatremic, but he was discharged back to home. Urinalysis is positive for ketones and positive for nitrites but WBCs 0-5. I will defer antibiotics. As this is his second visit with elevated lipase, concern would be for pancreatitis although I do not feel that imaging is indicated because he has normal LFTs and a normal white count. I feel that if he is discharged back to home, and tries to drink as he had vomiting today, he may become more hyponatremic to the point where he was admitted last time with a hyponatremia of 119. I also feel that he may require social work consultation as well. Patient will be discussed with the hospitalist. I discussed patient with Dr. Russell. Disposition is admit. History & Record Review Discussion w/independent historian: Patient Additional record(s) reviewed:: Prior ED visit and Prior labs Lab Data Attestation: I reviewed the patient's lab results. Labs: Laboratory Results - last 24 hr 09/11/23 11:23 WBC 9.5 RBC 4.63 Hgb 14.3 Hct 41.8 MCV 90.3 MCH 30.9 MCHC 34.2 RDW Std Deviation 44.2 H RDW Coeff of Janet 13.5 Plt Count 280 MPV 8.4 Immature Gran % (Auto) 0.700 Neut % (Auto) 72.8 H Lymph % (Auto) 15.2 L Elbert % (Auto) 9.5 Eos % (Auto) 1.1 Baso % (Auto) 0.7 Absolute Neuts (auto) 6.9 Absolute Lymphs (auto) 1.44 Nucleated RBC % 0 Sodium 131 L Potassium 3.5 Chloride 93 L Carbon Dioxide 25.0 Anion Gap 13 BUN 24 H Creatinine 1.38 H Est GFR (MDRD) Af Amer 69 Est GFR (MDRD) Non-Af 57 L BUN/Creatinine Ratio 17.4 Glucose 108 H Calcium 9.2 Total Bilirubin 1.10 H AST 15 ALT 32 Alkaline Phosphatase 79 Total Protein 7.4 Albumin 3.1 L Globulin 4.3 H Albumin/Globulin Ratio 0.7 L Lipase 469 H Urine Color Yellow Urine Clarity Sl. Cloudy Urine pH 5.0 Ur Specific [place] 1.020 Urine Protein 30 H Urine Glucose (UA) Normal Urine Ketones 150 A* Urine Occult Blood 50 H Urine Nitrite Positive H Urine Bilirubin 3 H Urine Urobilinogen 4 H Ur Leukocyte Esterase 25 H Urine RBC 0-5 SEEN Urine WBC 0-5 SEEN Ur Squamous Epith Cells 0-5 SEEN Urine Bacteria 2+ Urine Mucus 1+ Management Discussion w/another healthcare provider: Hospitalist Discharge Plan Dx/Rx/DC Orders Clinical Impression: General weakness, Hyponatremia, Nausea and vomiting, Elevated lipase Disposition Disposition: Acute Care Hospital [facility]
[2023-09-11] MEDS: 0.9% Normal Saline (1000mL) 1,000 ML 1000 ML IV (11:21)
[2023-09-11 11:28] LABS: Absolute Lymphocyte Count 1.44 X10^3/uL (0.83-4.51); Absolute Neutrophil Count 6.9 X10^3/uL (2.0-7.7); Basophil# 0.07 X10^3/uL; Basophil% 0.7 % (0-1); Color, Urine Yellow (Yellow); Eosinophils% 1.1 % (0-5); Glucose, Dipstick Normal (Normal); Hematocrit 41.8 % (40-54); Hemoglobin 14.3 g/dL (13.0-16.5); Leukocyte Esterase-Dipstick 25 /ul (Negative); Lymphocyte # 1.44 X10^3/ul (0.83-4.51); Lymphocyte % 15.2 % (19-41); Mean Corp Hgb Conc 34.2 g/dL (32-36); Mean Corpuscular Hgb 30.9 pg (27.0-32.0); Mean Corpuscular Volume 90.3 fL (80-94); Mean Platelet Vol. 8.4 fl (6.2-12.0); Monocyte% 9.5 % (0-10); NRBC Flagged by Analyzer 0 % (0-5); Neutrophil # 6.87 X10^3/uL (2.7-7.7); Neutrophil % 72.8 % (47-70); Nitrite-Dipstick Positive (Negative); Occult Blood-Urine 50 /ul (Negative); Platelet Count 280 K/mm3 (150-450); Protein-Dipstick 30 mg/dl (Negative); RBC Distribution Width CV 13.5 % (11.6-14.6); RBC Distribution Width SD 44.2 fl (35.1-43.9); Red Blood Count 4.63 M/mm3 (4.6-6.2); Urine Clarity Sl. Cloudy (Clear); Urine Urobilinogen 4 mg/dl (Normal); White Blood Count 9.5 K/mm3 (4.4-11.0)
[2023-09-11 11:30] LABS: Ketone-Dipstick 150 mg/dl (Negative); Urine Bilirubin Dipstick 3 mg/dL (Negative)
[2023-09-11 11:35] LABS: Bacteria 2+ /hpf (None Seen); Mucous, Urine 1+ /hpf (<or=2+); Red Blood Cells-Urine 0-5 SEEN /hpf (0-5); Squamous Epithelial Cells - UA 0-5 SEEN /hpf (0-5); White Blood Cells 0-5 SEEN /hpf (0-5)
[2023-09-11 11:48] LABS: ALB/GLOB Ratio 0.7 RATIO (0.9-2.4); AST(SGOT) 15 U/L (15-37); Alanine Aminotransfer ALT/SGPT 32 U/L (16-61); Albumin, Serum 3.1 g/dL (3.2-5.0); Alkaline Phosphatase 79 U/L (45-117); Anion Gap 13 (5-15); BUN 24 mg/dL (7-18); BUN/Creat Ratio 17.4 RATIO (10-20); Calcium,Total 9.2 mg/dL (8.5-10.1); Chloride 93 mmol/L (98-107); Creatinine, Serum 1.38 mg/dL (0.70-1.30); EST Glomerular Filtration Rate 57 mL/min (>60); Est Glom Filt Rate - Afr Amer 69 mL/min (>60); Globulin 4.3 g/dL (2.2-4.2); Glucose 108 mg/dL (74-106); Lipase 469 U/L (13-75); Potassium 3.5 mmol/L (3.5-5.1); Protein, Total 7.4 g/dL (6.4-8.2); Sodium Level 131 mmol/L (136-145)
[2023-09-11 12:00] VITALS: BP 132/89; PULSE 102; RESP 17; O2SAT 97
--- NOTE | 2023-09-11 12:21 | HP.PCM.HOS_ITS ---
HPI - General General Date of Admission: 09/11/23 Date of Service: 09/11/23 Chief Complaint: Nausea vomiting. Found to podiatry HPI Narrative ESTELLA GONZALEZ, is a 52 M who presents [facility] Medical History Hypertension Frequent falls Severe protein-calorie malnutrition GERD (gastroesophageal reflux disease) Gastric ulcer due to nonsteroidal anti-inflammatory drug (NSAID) Peptic ulcer disease Home Medications ?Medication ?Instructions ?Recorded ?Last Taken ?Type omeprazole 20 mg capsule,delayed 20 mg PO DAILY ACID REFLUX 08/17/23 09/03/23 History release lisinopril 20 1 tab PO DAILY BLOOD PRESSURE 09/03/23 09/03/23 History mg-hydrochlorothiazide 25 mg tablet acetaminophen 500 mg tablet 1,000 mg PO Q8H PRN FEVER/PAIN 09/11/23 Unknown History Allergy/AdvReac Type Severity Reaction Status Date / Time No Known Allergies Allergy Verified 09/03/23 10:58 Social History household members: none housing: apartment Smoking Status: Never smoker alcohol intake: never substance use type: does not use Vital Signs Vital Signs Vital Signs: 09/11/23 10:59 09/11/23 10:59 Temperature 98.1 F Temperature Source Oral Pulse Rate 119 H 120 H Respiratory Rate 32 H 32 H Blood Pressure 121/99 H Blood Pressure Mean 106 Pulse Ox 97 100 Oxygen Delivery Method Room Air Room Air Results Lab / Micro Data 09/11/23 11:23 09/11/23 11:23 Labs: Laboratory Results - last 24 hr 09/11/23 11:23: WBC 9.5, RBC 4.63, Hgb 14.3, Hct 41.8, MCV 90.3, MCH 30.9, MCHC 34.2, RDW Std Deviation 44.2 H, RDW Coeff of Jante 13.5, Plt Count 280, MPV 8.4, Immature Gran % (Auto) 0.700, Neut % (Auto) 72.8 H, Lymph % (Auto) 15.2 L, [place] % (Auto) 9.5, Eos % (Auto) 1.1, Baso % (Auto) 0.7, Absolute Neuts (auto) 6.9, Absolute Lymphs (auto) 1.44, Nucleated RBC % 0, Sodium 131 L, Potassium 3.5, C hloride 93 L, Carbon Dioxide 25.0, Anion Gap 13, BUN 24 H, Creatinine 1.38 H, Est GFR (MDRD) Af Amer 69, Est GFR (MDRD) Non-Af 57 L, BUN/Creatinine Ratio 17.4, Glucose 108 H, Calcium 9.2, Total Bilirubin 1.10 H, AST 15, ALT 32, Alkaline Phosphatase 79, Total Protein 7.4, Albumin 3.1 L, Globulin 4.3 H, A lbumin/Globulin Ratio 0.7 L, Lipase 469 H, Urine Color Yellow, Urine Clarity Sl. Cloudy, Urine pH 5.0, Ur Specific [place] 1.020, Urine Protein 30 H, Urine Glucose (UA) Normal, Urine Ketones 150 A*, Urine Occult Blood 50 H, Urine Nitrite Positive H, Urine Bilirubin 3 H, Urine Urobilinogen 4 H, Ur Leukocyte Esterase 25 H, Urine RBC 0-5 SEEN, Urine WBC 0-5 SEEN, Ur Squamous Epith Cells 0-5 SEEN, Urine Bacteria 2+, Urine Mucus 1+
[2023-09-11 12:35] VITALS: BP 126/88; PULSE 97; RESP 21; TEMP 36.8; O2SAT 98
[2023-09-11 12:42] LABS: Osmolality, Serum 281 mOsm/KG (275-295)
[2023-09-11 12:48] LABS: Magnesium 2.2 mg/dL (1.6-2.6)
--- NOTE | 2023-09-11 13:14 | PN.HOSP_ITS ---
Hospitalist Note Patient does not want to get admitted. He is angry that he has been kept here. He states he vomits once in 3 to 4 days of and probably due to the omeprazole pill. He is not happy with his PCP from [facility]. Does not have abdominal pain. Elevated lipase is chronic probably from bowel origin from vomiting or retching. Discussed with ER physician and I agreed for giving 1 more liter of IV fluid normal saline and discharged home [facility].
[2023-09-11] MEDS: 0.9% Normal Saline (1000mL) 1,000 ML 999 ML IV (13:16)
--- NOTE | 2023-09-11 14:10 | ED.RN ---
Pt. requesting hospital van for d/c, [facility] is unavailable per audio visual secretary. Pt requesting taxi, states are you able to call, this nurse assisted patient to call at bedside.
== END 2023-09-11 14:25 | disposition home or self-care (01) ==
PROVIDERS: Internal Medicine; Emergency Provider Emergency Medicine; PCP Family Medicine; Visit Provider Emergency Medicine
DX: R53.1 Weakness (principal); E87.1 Hypo-osmolality and hyponatremia; I10 Essential (primary) hypertension; R11.2 Nausea with vomiting, unspecified; R74.8 Abnormal levels of other serum enzymes; Z79.899 Other long term (current) drug therapy
CPT/HCPCS: 80053; 81001; 83690; 83735; 83930; 84100; 85025; 93005; 96360; 96361; 99282; J7030; A4216

== ENCOUNTER 2023-09-21 12:21 | Emergency (ER) | payer MEDICAID, SELFPAY ==
[2023-09-21 12:23] VITALS: BP 134/107; PULSE 111; RESP 16; TEMP 36.8; O2SAT 98
--- NOTE | 2023-09-21 12:39 | EKG12_ITS ---
Test Reason : Blood Pressure : / mmHG Vent. Rate : 105 BPM Atrial Rate : 105 BPM P-R Int : 142 ms QRS Dur : 090 ms QT Int : 336 ms P-R-T Axes : 062 036 089 degrees QTc Int : 444 ms Sinus tachycardia Nonspecific ST and T wave abnormality Abnormal ECG Confirmed by Rudy Thomas ([id number]), industrial editor ARCHANA AVENDANO ([id number]) on 09/24/2023 9:24:33 AM Referred By: Confirmed By:Rudy Thomas
[2023-09-21 12:58] LABS: Absolute Neutrophil Count 5.4 X10^3/uL (2.0-7.7); Basophil# 0.06 X10^3/uL; Basophil% 0.8 % (0-1); Eosinophil# 0.03 X10^3/uL; Eosinophils% 0.4 % (0-5); Hematocrit 41.1 % (40-54); Hemoglobin 13.7 g/dL (13.0-16.5); Lymphocyte % 17.3 % (19-41); Mean Corp Hgb Conc 33.3 g/dL (32-36); Mean Corpuscular Hgb 30.6 pg (27.0-32.0); Mean Corpuscular Volume 91.7 fL (80-94); Monocyte# 0.69 X10^3/uL; Monocyte% 9.2 % (0-10); NRBC Flagged by Analyzer 0.3 % (0-5); Neutrophil # 5.36 X10^3/uL (2.7-7.7); Neutrophil % 71.5 % (47-70); Platelet Count 136 K/mm3 (150-450); RBC Distribution Width SD 47.4 fl (35.1-43.9); Red Blood Count 4.48 M/mm3 (4.6-6.2); White Blood Count 7.5 K/mm3 (4.4-11.0)
[2023-09-21] MEDS: 0.9% Normal Saline (1000mL) 1,000 ML 1000 ML IV (13:02)
[2023-09-21 13:20] LABS: ALB/GLOB Ratio 0.7 RATIO (0.9-2.4); AST(SGOT) 21 U/L (15-37); Alanine Aminotransfer ALT/SGPT 33 U/L (16-61); Albumin, Serum 3.2 g/dL (3.2-5.0); Alkaline Phosphatase 90 U/L (45-117); Anion Gap 10 (5-15); BUN 34 mg/dL (7-18); BUN/Creat Ratio 25.6 RATIO (10-20); Calcium,Total 9.5 mg/dL (8.5-10.1); Chloride 104 mmol/L (98-107); Creatinine, Serum 1.33 mg/dL (0.70-1.30); EST Glomerular Filtration Rate 60 mL/min (>60); Est Glom Filt Rate - Afr Amer 72 mL/min (>60); Globulin 4.5 g/dL (2.2-4.2); Glucose 127 mg/dL (74-106); Potassium 3.3 mmol/L (3.5-5.1); Protein, Total 7.7 g/dL (6.4-8.2); Sodium Level 142 mmol/L (136-145)
[2023-09-21 14:16] LABS: Mucous, Urine 0 SEEN /hpf (<or=2+); Squamous Epithelial Cells - UA 0 SEEN /hpf (0-5)
[2023-09-21 14:18] VITALS: BP 148/99; PULSE 94; RESP 16; O2SAT 99
[2023-09-21 14:28] LABS: Color, Urine Amber (Yellow); Glucose, Dipstick Normal (Normal); Ketone-Dipstick 15 mg/dl (Negative); Leukocyte Esterase-Dipstick 25 /ul (Negative); Nitrite-Dipstick Positive (Negative); Occult Blood-Urine 10 /ul (Negative); Protein-Dipstick 30 mg/dl (Negative); Urine Clarity Clear (Clear); Urine Urobilinogen 4 mg/dl (Normal)
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
[2023-09-21 14:49] LABS: Urine Bilirubin Dipstick 1 mg/dL (Negative)
--- NOTE | 2023-09-21 15:12 | NURSING ---
CALLED [facility], TALKED TO TANIKA
--- NOTE | 2023-09-21 15:15 | NURSING ---
FAXED CHART TO [facility]
[2023-09-21 15:21] LABS: Bacteria 1+ /hpf (None Seen); Red Blood Cells-Urine 0-5 SEEN /hpf (0-5); Transitional Epithelial - Ur 0-5 SEEN /hpf (0-5); White Blood Cells 0-5 SEEN /hpf (0-5)
[2023-09-21 15:51] VITALS: BP 147/100; PULSE 100; RESP 18; O2SAT 97
[2023-09-21 17:00] VITALS: BP 148/104; PULSE 105; RESP 16; O2SAT 96
--- NOTE | 2023-09-21 17:15 | NURSING ---
CALLED [facility]. SHE IS ON HER WAY OVER
[2023-09-21 19:00] VITALS: BP 134/109; PULSE 112; RESP 19
[2023-09-21 21:16] LABS: Alcohol, Blood (Medical)-Serum < 3.0 mg/dL
[2023-09-21 22:04] LABS: Amphetamine Urine VISTA NEGATIVE (<1000 ng/mL); Barbiturate Urine VISTA NEGATIVE (< 200 ng/mL); Benzodiazepine Urine VISTA NEGATIVE (< 200 ng/mL); Cocaine Urine VISTA NEGATIVE (< 300 ng/mL); Ecstacy Urine VISTA NEGATIVE (< 500 ng/mL); Methadone Urine VISTA NEGATIVE (< 300 ng/mL); PCP Urine VISTA NEGATIVE (< 25 ng/mL); THC Urine VISTA NEGATIVE (< 50 ng/mL); Vista UDS pH Range 5
[2023-09-21 23:49] VITALS: BP 136/98; PULSE 103; RESP 20; O2SAT 99
--- NOTE | 2023-09-22 01:05 | ED.RN ---
I SPOKE W/ NATHAN FROM [facility]. SHE REQUESTED AN EKG BE FAXED FOR PLACEMENT AT THE [place] LOCATION PER THEIR DOCTORS REQUEST.
--- NOTE | 2023-09-22 01:35 | ED.RN ---
ATTEMPTED TO CALL REPORT TO [facility]. I WAS TOLD TO CALL BACK FOR REPORT AROUND 0600.
[2023-09-22 02:00] VITALS: BP 122/68; PULSE 80; RESP 16; O2SAT 99
[2023-09-22 06:07] VITALS: BP 122/68; PULSE 80; RESP 16; TEMP 36.8; O2SAT 99
== END 2023-09-22 08:02 ==
PROVIDERS: Emergency Medicine; Emergency Provider Emergency Medicine; PCP Family Medicine; Visit Provider Emergency Medicine
DX: R62.7 Adult failure to thrive (principal); F32.9 Major depressive disorder, single episode, unspecified; I12.9 Hypertensive chronic kidney disease with stage 1 through stage 4 chronic kidney disease, or unspecified chronic kidney disease; R82.71 Bacteriuria; R53.1 Weakness; F43.10 Post-traumatic stress disorder, unspecified; N18.9 Chronic kidney disease, unspecified; R79.89 Other specified abnormal findings of blood chemistry; R00.0 Tachycardia, unspecified; Z79.899 Other long term (current) drug therapy; K21.9 Gastro-esophageal reflux disease without esophagitis
CPT/HCPCS: 51701; 80053; 80307; 81001; 82077; 85025; 93005; 96360; 99285; J7030; P9612; A4216